=== PATIENT | male | born 1990 | race Two or more races ===

== ENCOUNTER → 2018-07-08 12:55 | Outpatient (CLI) | payer MEDICAID, SELFPAY ==
[2018-07-07 14:34] VITALS: BMI 30.5
[2018-07-08 14:10] LABS: AST(SGOT) 28 U/L (15-37); Alanine Aminotransfer ALT/SGPT 46 U/L (16-61); Albumin, Serum 4.2 g/dL (3.2-5.0); Alkaline Phosphatase 58 U/L (45-117); Bilirubin, Direct 0.11 mg/dL (0.00-0.30); Cholesterol 197 mg/dL (200); Globulin 3.8 g/dL (2.2-4.2); High Density Lipoprotein 33 mg/dL; Triglycerides 645 mg/dL
== END ==
PROVIDERS: Referring Provider Internal Medicine Cardiovascular Disease; Visit Provider Internal Medicine Cardiovascular Disease
DX: Z13.220 Encounter for screening for lipoid disorders (principal); Z82.49 Family history of ischemic heart disease and other diseases of the circulatory system
CPT/HCPCS: 36415; 80061; 80076

== ENCOUNTER → 2018-07-10 20:30 | Outpatient (CLI) | payer MEDICAID, SELFPAY ==
[2018-07-07 14:34] VITALS: BMI 30.5
[2018-07-10] MEDS: Zolpidem Tartrate 5 MG Tablet PO (21:40)
== END ==
PROVIDERS: Referring Provider Internal Medicine Cardiovascular Disease; Visit Provider Internal Medicine Cardiovascular Disease
DX: G47.33 Obstructive sleep apnea (adult) (pediatric) (principal); G47.61 Periodic limb movement disorder
CPT/HCPCS: 95810

== ENCOUNTER 2018-07-22 16:46 | Observation (INO) | payer MEDICAID, SELFPAY ==
[2018-07-07 14:34] VITALS: BMI 30.5
[2018-07-22] VITALS (9 sets, daily range): BP systolic 86–137; BP diastolic 43–99; PULSE 48–64; RESP 16–20; TEMP 36.5–36.9; O2SAT 98–99; BMI 30.8; BMI 29.6
--- NOTE | 2018-07-22 16:50 | NURSING ---
NO OLD EKGS
--- NOTE | 2018-07-22 17:03 | EKG12_ITS ---
Test Reason : CP Blood Pressure : / mmHG Vent. Rate : 062 BPM Atrial Rate : 062 BPM P-R Int : 130 ms QRS Dur : 096 ms QT Int : 374 ms P-R-T Axes : 044 021 009 degrees QTc Int : 379 ms Normal sinus rhythm Normal ECG Confirmed by RACHNA COVARRUBIAS, NITHYA ([id number]), art editor KARLA ISAAC ([id number]) on 07/24/2018 11:03:05 AM Referred By: Grupo Key Confirmed By:NITHYA BRISCOE MD
--- NOTE | 2018-07-22 17:03 | RAD_ITS ---
STUDY: X-RAY CHEST REASON FOR EXAM: Male, 28 years old. Chest pain TECHNIQUE: Single frontal view of the chest. COMPARISON: None. FINDINGS: The lungs are clear and expanded. There is no demonstrated pleural abnormality. Normal size heart. Normal mediastinum and kristyn. Normal visualized pulmonary arteries. Normal visualized aortic arch and descending thoracic aorta. Normal visualized thoracic spine. Normal visualized ribs, clavicles, and shoulders. There is no demonstrated abnormality of the visualized soft tissue structures of the upper abdomen. RAD/Chest 1 View (Portable) IMPRESSION: Normal x-ray examination of the chest. Electronically Signed: Geovany Lake MD at 22:09 EDT Tel , Service support ,
[2018-07-22] MEDS: 0.9% Normal Saline 1,000 ML 150 ML IV (17:11)
[2018-07-22] MEDS: Aspirin 81 MG TAB.CHEW 324 MG PO (17:12)
[2018-07-22 17:14] LABS: Absolute Lymphocyte Count 2.74 X10^3/ul (0.83-4.51); Absolute Neutrophil Count 2.7 X10^3/uL (2.0-7.7); Basophil# 0.03 X10^3/uL; Basophil% 0.5 % (0-1); Eosinophils% 3.3 % (0-5); Hematocrit 46.1 % (40-54); Hemoglobin 15.7 g/dl (13.0-16.5); Lymphocyte # 2.74 X10^3/ul (4.0); Lymphocyte % 45.2 % (19-41); Mean Corp Hgb Conc 34.1 g/gl (32-36); Mean Corpuscular Hgb 30.5 pg (27.0-32.0); Mean Corpuscular Volume 89.5 fL (80-94); Mean Platelet Vol. 10.2 fl (6.2-12.0); Monocyte# 0.43 X10^3/uL; Monocyte% 7.1 % (0-10); Neutrophil # 2.65 X10^3/uL (2.7-7.7); Neutrophil % 43.7 % (47-70); Platelet Count 251 K/mm3 (150-450); RBC Distribution Width CV 12.5 % (11.6-14.6); RBC Distribution Width SD 40.2 fl (35.1-43.9); Red Blood Count 5.15 M/mm3 (4.6-6.2); White Blood Count 6.1 K/mm3 (4.4-11.0)
[2018-07-22 17:26] LABS: Anion Gap 6 (5-15); BUN 12 mg/dL (7-18); BUN/Creat Ratio 11.7 RATIO (10-20); Calcium,Total 9.2 mg/dL (8.5-10.1); Chloride 105 mmol/L (98-107); Creatinine, Serum 1.03 mg/dL (0.70-1.30); EST Glomerular Filtration Rate 90 mL/min (>60); Est Glom Filt Rate - Afr Amer 109 mL/min (>60); Glucose 104 mg/dL (74-106); Potassium 3.9 mmol/L (3.5-5.1); Sodium Level 141 mmol/L (136-145)
[2018-07-22] MEDS: Nitroglycerin Oint 1 INCH PACKET TRANSDERM. (17:40)
[2018-07-22 17:52] LABS: D-Dimer Quantitative (DVT/PE) < 0.27 FEU/ug/m (0.27-0.49)
[2018-07-22 17:57] LABS: POSITIVE COUNT NO; POSITIVE DIFFERENTIAL NO; POSITIVE MORPHOLOGY NO
--- NOTE | 2018-07-22 18:07 | ED.VISSUMM ---
- ER Visit Summary Date of Service: 07/22/18 Chief Complaint: [Chest pain] History of Present Illness: The patient is a 28 M [presents the emergency department chief complaint chest pain intermittently for the last month. She was seen by Dr. Abbe Hall several weeks ago who ordered a stress test and echocardiogram but apparently was denied by his insurance. Patient stopped running on a treadmill because every time he did he would develop chest discomfort and pain radiating to his left arm. He describes it as pressure. At times he has had diaphoresis and shortness of breath associated with it. Patient has significant family history of heart disease and that his father's had a CABG in his early 50s and his mother has heart disease. Patient states lots of his family members in their 40s from heart disease. Patient also has triglycerides of over 600. Patient states his last stress test and echo were over 2 years ago. Patient is never had a heart catheterization.] Physical Examination: [HEENT-PERRLA, EOMI. Cranial nerves II through XII grossly intact. TMs clear. Mucous membranes moist. No adenopathy. Cardiovascular-regular rate and rhythm without murmur or ectopy Lungs-clear to auscultation, chest wall stable without crepitus or subcu emphysema Abdomen-normoactive bowel sounds, soft, nontender, no rebound or rigidity, no peritoneal signs. Extremities-intact ?4, normal range of motion, normal pulses, atraumatic] Test Results: [EKG obtained on arrival showed a sinus rhythm with a ventricular rate of 62 bpm with no acute I segment changes. CBC with differential was normal. Chemistries were normal. D-dimer was less than 0.27. Troponin is less than 0.015.] Emergency Department Course and Treatment: [Patient received aspirin as well as nitroglycerin which did help his pain and he had an inch of Nitropaste placed to the anterior chest wall.] Treatment Plan: [Patient will be admitted for further workup and evaluation of his exertional chest pain.] Disposition: [Admit] Impression: [Chest pain-rule out acute coronary syndrome] This note was generated with [employer] dictation software. It may contain incorrect words, spelling, and punctuation that were not noted in review of the chart prior to signing ED Disposition - Plan for ED Patient: Referrals: Care Physician,No Primary [Primary Care Provider] -
--- NOTE | 2018-07-22 18:19 | NURSING ---
JAMEY CP OBS [id number]
--- NOTE | 2018-07-22 18:49 | PCM.HP.STD ---
Problem List (1) Chest pain Status: Acute Qualifiers: Ischemic chest pain type: stable angina pectoris History of Present Illness Date of Admission: 07/22/18 Chief Complaint: chest pain The patient is a 28 year old M presents with chest pain. Chest pain has been going on and off for the past week. States is worse with exertion but also associated with diaphoresis, nausea and pain down his left arm. States that the symptoms get better when he stops. Chest pain-free at this time. Patient was evaluated in the emergency room with a troponin and d-dimer which were negative. EKG showed no acute changes. Patient notes that he has a family history of early coronary disease. Patient was normally active using a treadmill but over the past week has been unable to do so given the symptoms. [] Past Medical History Past Medical History (Chronic Problems): Chronic Problems (Last Updated 07/07/18 @ 15:04 by Gill Taylor) Family history of ischemic heart disease (Chronic) Bradycardia (Chronic) Medical History: Medical History (Last Updated 07/22/18 @ 18:51 by Grupo Key DO) Excessive daytime sleepiness (Acute) G47.19 Shortened FL interval (Acute) R94.31 Abnormal EKG (Acute) R94.31 Chest pain (Acute) R07.9 Family history of ischemic heart disease (Chronic) Z82.49 Bradycardia (Chronic) R00.1 TATIANA (obstructive sleep apnea) G47.33 Allergies No Known Allergies Allergy (Unverified 07/22/18 16:54) Home Medications: Ambulatory Orders Medication Instructions Recorded Gemfibrozil 600 mg PO BID 07/22/18 Smoking Status: Former smoker Tobacco Use: Cigarettes - *Family History Paternal Family History: Family History (Last Reviewed 07/22/18 @ 18:51 by Grupo Key DO) Father CAD (coronary artery disease) S/P CABG (coronary artery bypass graft) Hyperlipidemia Grandfather CAD (coronary artery disease) Sudden cardiac Grandmother CAD (coronary artery disease) Uncle CAD (coronary artery disease) Sudden cardiac Grandfather CAD (coronary artery disease) Myocardial infarction Grandmother No problems noted. Son No problems noted. Mother CAD (coronary artery disease) Myocardial infarction H/O right coronary artery stent placement, Onset Age: 53 Review of Systems Constitutional: Denies: Anorexia, Chills, Fever, Night Sweats Eyes: Denies: Blurred vision, Double vision HEENT: Denies: Head Aches, Sinus Congestion, Sinus Drainage Cardiovascular: Reports: Chest Pain, Palpitations. Denies: Edema Respiratory: Denies: Cough, Shortness of breath at rest, Sputum production Gastrointestinal: Reports: Nausea. Denies: Abdominal Pain, Vomiting Genitourinary: Denies: Dysuria Musculoskeletal: Reports: Arm Pain Skin: Denies: Rash, Wounds Neurological: Denies: Numbness, Tingling, Focal weakness Psychiatric: Denies: Anxiety, Depression Endocrine: Denies: Change in Body Habitus, Heat/ Cold Intolerance Hematologic/ Lymphatic: Denies: Easy Bruising, Easy Bleeding, Hx of blood clot Comment: A 10 point review of systems were negative except as mentioned in the history of present illness and the other review of systems. VTE Information - Inpt Only VTE Present on Admission: No VTE Mechan Device Prophylaxis: None VTE Pharm Prophylaxis ordered?: No Reason prophylaxis not ordered:: Procedure Not Indicated - Physical Exam General: Alert, Cooperative, No apparent distress HEENT: Atraumatic, Normocephalic Oral: Moist Mucosa, No Gingival or Mucosal Lesions/ Ulcerations Neck: No Nodes, Thyroid Normal Size and Texture Lungs: Normal air movement, No rhonchi, No wheeze, - - Crackles in left lower lobe Cardiovascular: Regular rate, Regular Rhythm, Normal S1, Normal S2, No murmurs Abdomen: Bowel Sounds Present, Soft, Non Tender, Non-Distended, No Hepato-splenomegaly Extremities: No edema, No Calf Tenderness Skin: No rashes, No breakdown Musculoskeletal: No Tenderness to Palpation of Joints or Extremities, No Muscle Wasting Psych/Mental Status: Normal Affect, Appropriate Vital Signs Temp Pulse Resp BP Pulse Ox 36.7 C 63 17 137/89 H 99 07/22/18 16:49 07/22/18 18:26 07/22/18 18:26 07/22/18 18:26 07/22/18 18:26 Oxygen Flow Rate (L/min) 2 Oxygen Delivery Method Nasal Cannula Weight: 103 kg Body Mass Index (BMI) 30.8 Laboratory Tests Past 24 Hrs 07/22/18 07/22/18 07/22/18 16:50 16:50 16:50 WBC 6.1 RBC 5.15 Hgb 15.7 Hct 46.1 MCV 89.5 MCH 30.5 MCHC 34.1 RDW 12.5 RDW Differential 40.2 Plt Count 251 MPV 10.2 Immature Gran % (Auto) 0.200 Neut % (Auto) 43.7 L Lymph % (Auto) 45.2 H [place] % (Auto) 7.1 Eos % (Auto) 3.3 Baso % (Auto) 0.5 Absolute Neuts (auto) 2.7 Absolute Lymphs (auto) 2.74 Total Counted Not Reportable D-Dimer Quant (PE/DVT) < 0.27 L Sodium 141 Potassium 3.9 Chloride 105 Carbon Dioxide 30.0 Anion Gap 6 BUN 12 Creatinine 1.03 Estim Creat Clear Calc 115.10 Est GFR (MDRD) Af Amer 109 Est GFR (MDRD) Non-Af 90 BUN/Creatinine Ratio 11.7 Glucose 104 Calcium 9.2 Troponin I < 0.015 EKG reviewed and showed normal sinus rhythm with no acute changes. Assessment/Plan All Active Problems (Last Updated 07/07/18 @ 15:04 by Gill Taylor) Excessive daytime sleepiness (Acute) Shortened FL interval (Acute) Abnormal EKG (Acute) Chest pain (Acute) 1. Stable angina Stable at this time Cardiology contacted emergency room and stated that they will evaluate and determine course of action in regards to additional testing whether be a stress test or a left heart catheterization. In the meantime, patient will have a troponin cycled and if they do go up then we will likely proceed with a left heart catheterization and changes to medical treatment at that time. Patient received aspirin as well as nitroglycerin in the emergency room. We will continue with daily aspirin for now and as needed nitroglycerin. Reviewed stress test from 2016. This was performed in [place] and that was negative at that time. 2. Hypertriglyceridemia Patient had a fasting lipid panel performed on July 08 that showed a triglycerides of 645 total cholesterol 197. Unable to calculate LDL. HDL was 33. Continue with gemfibrozil 3. Obstructive sleep apnea Patient had a polysomnogram on the that showed moderate to severe sleep apnea. Patient requires further CPAP titration 4. DVT prophylaxis: Patient is observation status and therefore low risk at this time. DVT prophylaxis not indicated. Patient's father and sister were present when I arrived. He requested that they leave during my encounter with him. Code Visit OBSV E&M: 34081 Initial observation care L2
--- NOTE | 2018-07-22 18:56 | HP.PCM_ITS ---
Problem List (1) Chest pain Status: Acute Qualifiers: Ischemic chest pain type: stable angina pectoris History of Present Illness Date of Admission: 07/22/18 Chief Complaint: chest pain The patient is a 28 year old M presents with chest pain. Chest pain has been going on and off for the past week. States is worse with exertion but also associated with diaphoresis, nausea and pain down his left arm. States that the symptoms get better when he stops. Chest pain-free at this time. Patient was evaluated in the emergency room with a troponin and d-dimer which were negative. EKG showed no acute changes. Patient notes that he has a family history of early coronary disease. Patient was normally active using a treadmill but over the past week has been unable to do so given the symptoms. [] Past Medical History Past Medical History (Chronic Problems): Chronic Problems (Last Updated 07/07/18 @ 15:04 by Gill Taylor) Family history of ischemic heart disease (Chronic) Bradycardia (Chronic) Medical History: Medical History (Last Updated 07/22/18 @ 18:51 by Grupo Key DO) Excessive daytime sleepiness (Acute) G47.19 Shortened [place] interval (Acute) R94.31 Abnormal EKG (Acute) R94.31 Chest pain (Acute) R07.9 Family history of ischemic heart disease (Chronic) Z82.49 Bradycardia (Chronic) R00.1 TATIANA (obstructive sleep apnea) G47.33 Allergies No Known Allergies Allergy (Unverified 07/22/18 16:54) Home Medications: Ambulatory Orders Medication Instructions Recorded Gemfibrozil 600 mg PO BID 07/22/18 Smoking Status: Former smoker Tobacco Use: Cigarettes - *Family History Paternal Family History: Family History (Last Reviewed 07/22/18 @ 18:51 by Grupo Key DO) Father CAD (coronary artery disease) S/P CABG (coronary artery bypass graft) Hyperlipidemia Grandfather CAD (coronary artery disease) Sudden cardiac Grandmother CAD (coronary artery disease) Uncle CAD (coronary artery disease) Sudden cardiac Grandfather CAD (coronary artery disease) Myocardial infarction Grandmother No problems noted. Son No problems noted. Mother CAD (coronary artery disease) Myocardial infarction H/O right coronary artery stent placement, Onset Age: 53 Review of Systems Constitutional: Denies: Anorexia, Chills, Fever, Night Sweats Eyes: Denies: Blurred vision, Double vision HEENT: Denies: Head Aches, Sinus Congestion, Sinus Drainage Cardiovascular: Reports: Chest Pain, Palpitations. Denies: Edema Respiratory: Denies: Cough, Shortness of breath at rest, Sputum production Gastrointestinal: Reports: Nausea. Denies: Abdominal Pain, Vomiting Genitourinary: Denies: Dysuria Musculoskeletal: Reports: Arm Pain Skin: Denies: Rash, Wounds Neurological: Denies: Numbness, Tingling, Focal weakness Psychiatric: Denies: Anxiety, Depression Endocrine: Denies: Change in Body Habitus, Heat/ Cold Intolerance Hematologic/ Lymphatic: Denies: Easy Bruising, Easy Bleeding, Hx of blood clot Comment: A 10 point review of systems were negative except as mentioned in the history of present illness and the other review of systems. VTE Information - Inpt Only VTE Present on Admission: No VTE Mechan Device Prophylaxis: None VTE Pharm Prophylaxis ordered?: No Reason prophylaxis not ordered:: Procedure Not Indicated - Physical Exam General: Alert, Cooperative, No apparent distress HEENT: Atraumatic, Normocephalic Oral: Moist Mucosa, No Gingival or Mucosal Lesions/ Ulcerations Neck: No Nodes, Thyroid Normal Size and Texture Lungs: Normal air movement, No rhonchi, No wheeze, - - Crackles in left lower lobe Cardiovascular: Regular rate, Regular Rhythm, Normal S1, Normal S2, No murmurs Abdomen: Bowel Sounds Present, Soft, Non Tender, Non-Distended, No Hepato- splenomegaly Extremities: No edema, No Calf Tenderness Skin: No rashes, No breakdown Musculoskeletal: No Tenderness to Palpation of Joints or Extremities, No Muscle Wasting Psych/Mental Status: Normal Affect, Appropriate Vital Signs Temp Pulse Resp BP Pulse Ox 36.7 C 63 17 137/89 H 99 07/22/18 16:49 07/22/18 18:26 07/22/18 18:26 07/22/18 18:26 07/22/18 18:26 Oxygen Flow Rate (L/min) 2 Oxygen Delivery Method Nasal Cannula Weight: 103 kg Body Mass Index (BMI) 30.8 Laboratory Tests Past 24 Hrs 07/22/18 07/22/18 07/22/18 16:50 16:50 16:50 WBC 6.1 RBC 5.15 Hgb 15.7 Hct 46.1 MCV 89.5 MCH 30.5 MCHC 34.1 RDW 12.5 RDW Differential 40.2 Plt Count 251 MPV 10.2 Immature Gran % (Auto) 0.200 Neut % (Auto) 43.7 L Lymph % (Auto) 45.2 H [place] % (Auto) 7.1 Eos % (Auto) 3.3 Baso % (Auto) 0.5 Absolute Neuts (auto) 2.7 Absolute Lymphs (auto) 2.74 Total Counted Not Reportable D-Dimer Quant (PE/DVT) < 0.27 L Sodium 141 Potassium 3.9 Chloride 105 Carbon Dioxide 30.0 Anion Gap 6 BUN 12 Creatinine 1.03 Estim Creat Clear Calc 115.10 Est GFR (MDRD) Af Amer 109 Est GFR (MDRD) Non-Af 90 BUN/Creatinine Ratio 11.7 Glucose 104 Calcium 9.2 Troponin I < 0.015 EKG reviewed and showed normal sinus rhythm with no acute changes. Assessment/Plan All Active Problems (Last Updated 07/07/18 @ 15:04 by Gill Taylor) Excessive daytime sleepiness (Acute) Shortened [place] interval (Acute) Abnormal EKG (Acute) Chest pain (Acute) 1. Stable angina * Stable at this time * Cardiology contacted emergency room and stated that they will evaluate and determine course of action in regards to additional testing whether be a stress test or a left heart catheterization. * In the meantime, patient will have a troponin cycled and if they do go up then we will likely proceed with a left heart catheterization and changes to medical treatment at that time. * Patient received aspirin as well as nitroglycerin in the emergency room. We will continue with daily aspirin for now and as needed nitroglycerin. * Reviewed stress test from 2017. This was performed in [place] and that was negative at that time. 2. Hypertriglyceridemia * Patient had a fasting lipid panel performed on July 08 that showed a triglycerides of 645 total cholesterol 197. Unable to calculate LDL. HDL was 33. * Continue with gemfibrozil 3. Obstructive sleep apnea * Patient had a polysomnogram on the that showed moderate to severe sleep apnea. Patient requires further CPAP titration 4. DVT prophylaxis: Patient is observation status and therefore low risk at this time. DVT prophylaxis not indicated. Patient's father and sister were present when I arrived. He requested that they leave during my encounter with him. Code Visit OBSV E&M: [id number] Initial observation care L2
--- NOTE | 2018-07-22 19:52 | EKG12_ITS ---
Test Reason : CP ADMIT Blood Pressure : / mmHG Vent. Rate : 056 BPM Atrial Rate : 056 BPM P-R Int : 138 ms QRS Dur : 096 ms QT Int : 410 ms P-R-T Axes : 027 014 006 degrees QTc Int : 395 ms Sinus bradycardia Otherwise normal ECG When compared with ECG of 22-JUL-2018 16:51, MANUAL COMPARISON REQUIRED, DATA IS UNCONFIRMED Confirmed by RACHNA COVARRUBIAS, NITHYA ([id number]), index editor KARLA ISAAC ([id number]) on 07/27/2018 1:17:35 PM Referred By: Grupo Key Confirmed By:NITHYA BRISCOE MD
[2018-07-22] MEDS: Gemfibrozil 600 MG Tablet PO (22:16)
[2018-07-23] VITALS (10 sets, daily range): BP systolic 103–120; BP diastolic 61–75; PULSE 43–94; RESP 16; TEMP 36.4–36.9; O2SAT 95–99
--- NOTE | 2018-07-23 07:57 | STEWCON_ITS ---
Reason For Study: Chest Pain Stress Results Protocol: Vasiliy Protocol Maximum Predicted HR: 190 bpm Target HR: 162 bpm % Maximum Predicted HR: 74 % Heart Stage Duration Rate BP Comment (mm:ss) (bpm) No Chest Pain; Positive Left Arm Pain; Diluted Definity Baseline 52 102/725 ML Given Vasiliy Protocol Stage I 3:00 90 110/64No Chest Pain; No Left Arm Pain Vasiliy Protocol Stage II 3:00 102 124/60No Chest Pain; Mild Dyspnea Vasiliy Protocol Stage Left Side Chest Pressure, Mild Dyspnea; Mild Left Arm III 3:00 122 148/58Pain Vasiliy Protocol Stage Moderate Left Side Chest Pressure-Sharp; Left Arm Pain; IV 1:00 141 / Mild Dyspnea Recovery 80 114/68Mild Chest Pressure; Nausea; Left Arm Pain Stress Duration: 10:00 mm:ss Maximum Stress HR: 141 bpm METS: 13 Baseline Echocardiogram Findings The estimated ejection fraction is 65 %. Stress Echo Wall motion Data Resting WM Intermediate WM Stress WM Resting Wall Motion Wall Motion Stress No regional wall motion No regional wall motion abnormalities noted. abnormalities noted. EKG Data Normal intervals are noted. The patient exercised according to the regular Vasiliy protocol for a total duration of 10:00. The maximum heart rate attained was 141 beats per minute. This was 74% of maximum predicted heart rate. The patient exercised into stage 4 of the Vasiliy protocol. During stress, there were no ST or T wave changes noted to suggest ischemia. No arrhythmias noted. Interpretation Summary The estimated ejection fraction is 65 %. Abnormal, adequate, treadmill echocardiogram. Negative for ischemia by EKG and echocardiographic anterior. Patient did develop chest discomfort during exercise which radiated down his left arm, and resolved in recovery. No associated EKG or echocardiographic changes during that time. No arrhythmias noted. Final LVEF is 75%. Test terminated due to chest pain. Difficult echo windows requiring Definity agent for enhancement. No complications. The study was technically difficult. Contrast injection was performed. Ordering Physician: Abbe Hall Referring Physician: Abbe Hall Performed By: Annabella Nolan, BRYAN, RVT
--- NOTE | 2018-07-23 07:58 | ECHOCS_ITS ---
Reason For Study: CP Procedure This was a 2D Doppler, Color Flow transthoracic echocardiogram. Exam performed in department. Left Ventricle Normal size and thickness. The estimated ejection fraction is 65 %. Normal diastology for age. No regional wall motion abnormalities noted. Right Ventricle Normal size and thickness. Normal systolic function. Atria Normal left atrium. Normal right atrium. Normal atrial septum. Mitral Valve The mitral valve is structurally normal. No prolapse or stenosis seen. Tricuspid Valve Normal tricuspid valve. Trivial tricuspid valve insufficiency. Unable to estimate RV systolic pressure/pulmonary artery pressure due to technically difficult study. Aortic Valve Normal aortic valve. Trisinus/trileaflet aortic valve. Pulmonic Valve Normal pulmonic valve. Great Vessels Normal aortic root. Normal arch. Normal inferior vena cava. Inferior vena cava collapse with sniff. Pericardium/Pleural No pericardial effusion. Medication Diluted definity 2ml given slow IV push to enhance endocardial definition. MMode/2D Measurements & Calculations LVIDd: 4.6 cm IVSd: 1.2 cm Ao root diam: 3.1 cm LVIDs: 3.2 cm LVPWd: 1.0 cm LA dimension: 3.2 cm FS: 30.6 % LAV(MOD-bp): 33.6 ml LVAd ap4: 34.9 cm2 SV(MOD-sp4): 65.5 ml LAV(MOD-bp) Indexed: 15.2 ml/m2 EDV(MOD-sp4): 120.4 ml LAV(MOD-sp2): 36.3 ml EDV(sp4-el): 125.1 ml LAV(MOD-sp4): 29.1 ml LVAs ap4: 21.0 cm2 ESV(MOD-sp4): 54.8 ml ESV(sp4-el): 57.6 ml EF(MOD-sp4): 54.4 % EF(sp4-el): 54.0 % SV(sp4-el): 67.5 ml LA A4 area: 12.6 cm2 RA A4 area: 12.3 cm2 Time Measurements MV dec time: 0.29 sec Doppler Measurements & Calculations MV E max pramod: 65.4 cm/sec Lat Peak E' Pramod: 11.8 cm/sec Med Peak E' Pramod: 8.3 cm/sec MV A max pramod: 56.3 cm/sec E/E' lat: 5.5 E/E' med: 7.9 MV E/A: 1.2 MV V2 max: 61.5 cm/sec MV P1/2t max pramod: 61.1 cm/sec Ao V2 max: 101.4 cm/sec MV max P.5 mmHg MV P1/2t: 100.3 msec Ao max P.1 mmHg MV V2 mean: 40.3 cm/sec Ao V2 mean: 65.0 cm/sec MV mean P.73 mmHg MV dec slope: 178.6 cm/sec2 Ao mean P.9 mmHg MV V2 VTI: 17.5 cm MVA(P1/2t): 2.2 cm2 Ao V2 VTI: 18.3 cm LV V1 max: 80.2 cm/sec PA V2 max: 85.7 cm/sec LV V1 max P.6 mmHg LV V1 mean P.1 mmHg LV V1 mean: 46.7 cm/sec LV V1 VTI: 15.9 cm Interpretation Summary The estimated ejection fraction is 65 %. Normal diastology for age. Trivial tricuspid valve insufficiency. Unable to estimate RV systolic pressure/pulmonary artery pressure due to technically difficult study. There is no comparison study available. The study was technically difficult. Contrast injection was performed. Ordering Physician: Abbe Hall Referring Physician: Grupo Key Performed By: Giancarlo Turpin RCS
--- NOTE | 2018-07-23 08:02 | PCM.PN.HOSP ---
Vitals/I&O's: Vital Signs Temp Pulse Resp BP Pulse Ox 98.0 F 56 L 16 103/61 99 07/23/18 04:18 07/23/18 07:20 07/23/18 04:18 07/23/18 04:18 07/23/18 04:18 Oxygen Flow Rate (L/min) 2 Oxygen Delivery Method Room Air Weight: 99.1 kg Body Mass Index (BMI) 29.6 Intake and Output for Last 24 Hours 07/21/18 07/22/18 07/23/18 23:59 23:59 23:59 Intake Total 150 / 150 0 / 0 Balance 150 / 150 0 / 0 Laboratory Results 07/22/18 16:50: WBC 6.1, RBC 5.15, Hgb 15.7, Hct 46.1, MCV 89.5, MCH 30.5, MCHC 34.1, RDW 12.5, RDW Differential 40.2, Plt Count 251, MPV 10.2, Immature Gran % (Auto) 0.200, Neut % (Auto) 43.7 L, Lymph % (Auto) 45.2 H, [place] % (Auto) 7.1, Eos % (Auto) 3.3, Baso % (Auto) 0.5, Absolute Neuts (auto) 2.7, Absolute Lymphs (auto) 2.74, Total Counted Not Reportable 07/22/18 16:50: D-Dimer Quant (PE/DVT) < 0.27 L 07/22/18 16:50: Sodium 141, Potassium 3.9, Chloride 105, Carbon Dioxide 30.0, Anion Gap 6, BUN 12, Creatinine 1.03, Estim Creat Clear Calc 115.10, Est GFR (MDRD) Af Amer 109, Est GFR (MDRD) Non-Af 90, BUN/Creatinine Ratio 11.7, Glucose 104, Calcium 9.2, Troponin I < 0.015 07/22/18 19:52: Troponin I < 0.015 07/23/18 00:16: Troponin I < 0.015 Current Medications Acetaminophen (Tylenol) 650 mg PO Q6H PRN PRN PRN Reason: Mild Pain (1-3)/Temp > 100.7 F Aspirin (Ecotrin) 81 mg PO DAILY@0800 [facility] Gemfibrozil (Lopid) 600 mg PO BIDAC [facility] Last Admin: 07/22/18 22:16 Dose: 600 mg Magnesium Hydroxide (Milk Of Magnesia) 30 ml PO DAILY PRN PRN Reason: Constipation Morphine Sulfate () 2 - 4 mg IV Q4H PRN PRN PRN Reason: MOD-SEVERE PAIN (4-10/10) Morphine Sulfate () 2 - 4 mg IV Q4H PRN PRN PRN Reason: MOD-SEVERE PAIN (4-10/10) Nitroglycerin (Nitrostat) 0.4 mg SUBLINGUAL Q5M PRN PRN Reason: CHEST PAIN Ondansetron HCl (Zofran) 4 mg IV Q8H PRN PRN PRN Reason: NAUSEA Sodium Chloride () 5 - 15 ml IV UD PRN PRN Reason: SALINE FLUSH Medical Necessity - Tobacco Use Smoking Status: Former smoker Tobacco Use: Cigarettes Assessment/Plan All Active Problems (Last Updated 07/22/18 @ 18:51 by Grupo Key DO) Excessive daytime sleepiness (Acute) Shortened [place] interval (Acute) Abnormal EKG (Acute) Chest pain (Acute)
[2018-07-23] MEDS: Gemfibrozil 600 MG Tablet PO ×2 (08:05→16:17)
[2018-07-23] MEDS: Aspirin E.C. 81 MG Tablet PO (08:05)
[2018-07-23 08:56] LABS: Erythrocyte Sedimentation Rate 3 mm/hr (0-15)
[2018-07-23 09:21] LABS: CRP, High Sensitivity Cardiac 0.51 mg/L
--- NOTE | 2018-07-23 12:21 | PCM.CONS.C ---
Problem List (1) Abnormal EKG Status: Acute (2) Chest pain Status: Acute Qualifiers: Ischemic chest pain type: stable angina pectoris (3) Family history of ischemic heart disease Status: Chronic Reason for Consult Date of Consultation: 07/23/18 Reason for Consultation: New onset angina, abnormal EKG, family history of coronary artery disease, History of Present Illness: The patient is a 28 year old M, former smoker who quit over 10 years ago, strong positive family history of premature coronary artery disease in both his mother and father, who I recently saw in the office as a new patient given the patient's concern for premature coronary artery disease in his parents. His father, who is actually my patient, had bypass surgery in his early 50s, and his mother had a myocardial infarction in her 50s. Patient has a history of hypertriglyceridemia, but was not on any medications. Over the last week or so the patient developed new onset chest pain, mostly at rest, nonpleuritic in nature, but also occurs with exertion. 2 days ago, the patient presented to our office with new onset angina, we were unable to see him and recommended he go to the emergency room but he declined. Yesterday afternoon the patient's chest pain worsened and had associated pain down his left arm, called our office, and recommended that he go to the emergency room. Patient did go to the emergency room where an EKG was performed which showed normal sinus rhythm, no acute changes, no difference from EKG several days ago. Patient was admitted and ruled out for myocardial infarction. His d-dimer is negative. His sed rate is negative. Patient underwent a walking treadmill echocardiogram this morning which the patient walked about 10 minutes, developed substernal chest pressure during the treadmill which radiated down his left arm, and resolved in recovery. The patient had no associated EKG or echocardiographic changes however he had poor echo windows requiring Definity agent making wall motion and normalities somewhat difficult to interpret. Currently the patient is resting comfortably, no acute distress. [] Past Medical History Allergies/Adverse Reactions: Allergies No Known Allergies Allergy (Unverified 07/22/18 16:54) Home Medications: Ambulatory Orders Medication Instructions Recorded Gemfibrozil 600 mg PO BID 07/22/18 Past Medical History (Chronic Problems): Chronic Problems (Last Updated 07/22/18 @ 18:51 by Grupo Key DO) Family history of ischemic heart disease (Chronic) Bradycardia (Chronic) - *Family History Paternal Family History: Family History (Last Reviewed 07/22/18 @ 18:51 by Grupo Key DO) Father CAD (coronary artery disease) S/P CABG (coronary artery bypass graft) Hyperlipidemia Grandfather CAD (coronary artery disease) Sudden cardiac Grandmother CAD (coronary artery disease) Uncle CAD (coronary artery disease) Sudden cardiac Grandfather CAD (coronary artery disease) Myocardial infarction Grandmother No problems noted. Son No problems noted. Mother CAD (coronary artery disease) Myocardial infarction H/O right coronary artery stent placement, Onset Age: 53 Smoking Status: Former smoker Tobacco Use: Cigarettes Review of Systems - Review of Systems General: Denies: Fever, Night Sweats, Fatigue Cardiovascular: Denies: Chest Discomfort, Shortness of Breath, Orthopnea, PND, Peripheral Edema, Palpitations, Lightheadedness, Dizziness, Near Syncope, Syncope Respiratory: Denies: Cough, Sputum Production, Hemoptysis Gastrointestinal: Denies: Hematemesis, Hematochezia, Melena Genitourinary: Denies: Dysuria, Hematuria Skin: Denies: Rash Objective: Vital Signs Temp Pulse Resp BP Pulse Ox 98.5 F 63 16 120/73 98 07/23/18 08:07 07/23/18 10:53 07/23/18 08:07 07/23/18 08:07 07/23/18 08:07 Oxygen Flow Rate (L/min) 2 Oxygen Delivery Method Room Air Weight: 218 lb 7.649 oz Body Mass Index (BMI) 29.6 Intake and Output for Last 24 Hours 07/21/18 07/22/18 07/23/18 23:59 23:59 23:59 Intake Total 150 / 150 100 / 100 Balance 150 / 150 100 / 100 07/22/18 16:50: WBC 6.1, RBC 5.15, Hgb 15.7, Hct 46.1, MCV 89.5, MCH 30.5, MCHC 34.1, RDW 12.5, RDW Differential 40.2, Plt Count 251, MPV 10.2, Immature Gran % (Auto) 0.200, Neut % (Auto) 43.7 L, Lymph % (Auto) 45.2 H, [place] % (Auto) 7.1, Eos % (Auto) 3.3, Baso % (Auto) 0.5, Absolute Neuts (auto) 2.7, Total Counted Not Reportable 07/22/18 16:50: D-Dimer Quant (PE/DVT) < 0.27 L 07/22/18 16:50: Sodium 141, Potassium 3.9, Chloride 105, Carbon Dioxide 30.0, Anion Gap 6, BUN 12, Creatinine 1.03, Est GFR (MDRD) Af Amer 109, Est GFR (MDRD) Non-Af 90, BUN/Creatinine Ratio 11.7, Glucose 104, Calcium 9.2, Troponin I < 0.015 07/22/18 19:52: Troponin I < 0.015 07/23/18 00:16: Troponin I < 0.015 Rhythm: EKG: Normal sinus rhythm, no acute changes. ECHO: Pending Stress Test: Abnormal treadmill echocardiogram, positive for anginal symptoms at peak exertion, no EKG or echocardiographic changes. Cardiac Cath: PCI: CT Surgery: Holter monitor: EPS: PPM: CXR: Chest CT Scan: Assessment/Plan 1. New onset angina: The patient has developed new onset chest pain symptoms over the last several days, which appeared to occur both with and without exertion and were re-documented with stress testing today at peak exertion. The patient developed substernal chest pressure radiating down his left arm with associated nausea. Although the patient did not reach target heart rate, he had an excellent rate pressure product. He had no overt EKG or echocardiographic changes at peak exercise however he had poor echo windows requiring Definity agent making echo interpretation somewhat problematic. Given the patient's chest pain, positive family history of premature coronary disease in both his parents, and chest pain during exercise, I recommended he undergo a diagnostic left heart catheterization tomorrow morning to confirm/deny the presence of significant coronary occlusive disease. Patient be loaded with 300 mg of Plavix this evening, followed by 75 mg a day starting tomorrow morning, and continue baby aspirin therapy. If patient is no overt coronary disease, we will look for other noncardiac reasons for his chest pain. His sed rate is negative so he most likely does not have pericarditis or pleuritis. His d-dimer was negative as well. Pulmonary embolism is of low probability. 2. Hypercholesterolemia: Patient has documented hypercholesterolemia and was recently started on gemfibrozil 600 mg p.o. twice daily. Would recommend continuing this for primary prophylaxis given his positive family history of premature coronary disease. We will repeat his lipid profile in 6 weeks time. 3. Thank you very much for the opportunity to participate in the cardiac care of your patient. Consultation time took place between 11 AM and 1130. Code Visit Inpatient E&M: 42448 Init Hosp L2
[2018-07-23] MEDS: Clopidogrel Bisulfate 300 MG Tablet PO (12:35)
--- NOTE | 2018-07-23 13:02 | PCM.PROGNOTE ---
<Jose Du - Last Filed: 07/23/18 13:02> Subjective: Pt going for heart cath in AM, at time of interview, no reported CP. He did have a recurrence of the CP with radiation to the left arm during his stress test. He states it is gone now. He otherwise feels well. - Physical Exam General: Alert, Oriented x3, Cooperative HEENT: Atraumatic, PERRLA, EOMI, Normocephalic Neck: Supple, No JVD, Negative Carotid Bruits Lungs: Clear to auscultation, Normal air movement Cardiovascular: Regular rate, No murmurs Abdomen: Bowel Sounds Present, Soft, Non Tender Extremities: No edema, Capillary Refill Less than 3 Seconds Skin: No rashes, No breakdown Musculoskeletal: No Tenderness to Palpation of Joints or Extremities Neurological: Cranial nerves II-XII grossly intact Psych/Mental Status: Normal Affect, Appropriate, Alert and oriented to time, place, person, mood and affect Vital Signs Temp Pulse Resp BP Pulse Ox 98.5 F 63 16 120/73 98 07/23/18 08:07 07/23/18 10:53 07/23/18 08:07 07/23/18 08:07 07/23/18 08:07 Oxygen Flow Rate (L/min) 2 Oxygen Delivery Method Room Air Weight: 218 lb 7.649 oz Body Mass Index (BMI) 29.6 Intake and Output for Last 24 Hours 07/21/18 07/22/18 07/23/18 23:59 23:59 23:59 Intake Total 150 / 150 100 / 100 Balance 150 / 150 100 / 100 Laboratory Tests Past 24 Hrs 07/22/18 07/22/18 07/22/18 16:50 16:50 16:50 WBC 6.1 RBC 5.15 Hgb 15.7 Hct 46.1 MCV 89.5 MCH 30.5 MCHC 34.1 RDW 12.5 RDW Differential 40.2 Plt Count 251 MPV 10.2 Immature Gran % (Auto) 0.200 Neut % (Auto) 43.7 L Lymph % (Auto) 45.2 H [place] % (Auto) 7.1 Eos % (Auto) 3.3 Baso % (Auto) 0.5 Absolute Neuts (auto) 2.7 Absolute Lymphs (auto) 2.74 Total Counted Not Reportable ESR D-Dimer Quant (PE/DVT) < 0.27 L Sodium 141 Potassium 3.9 Chloride 105 Carbon Dioxide 30.0 Anion Gap 6 BUN 12 Creatinine 1.03 Estim Creat Clear Calc 115.10 Est GFR (MDRD) Af Amer 109 Est GFR (MDRD) Non-Af 90 BUN/Creatinine Ratio 11.7 Glucose 104 Calcium 9.2 Troponin I < 0.015 C-React Prot High Sens 07/22/18 07/23/18 07/23/18 19:52 00:16 08:36 WBC RBC Hgb Hct MCV MCH MCHC RDW RDW Differential Plt Count MPV Immature Gran % (Auto) Neut % (Auto) Lymph % (Auto) [place] % (Auto) Eos % (Auto) Baso % (Auto) Absolute Neuts (auto) Absolute Lymphs (auto) Total Counted ESR 3 D-Dimer Quant (PE/DVT) Sodium Potassium Chloride Carbon Dioxide Anion Gap BUN Creatinine Estim Creat Clear Calc Est GFR (MDRD) Af Amer Est GFR (MDRD) Non-Af BUN/Creatinine Ratio Glucose Calcium Troponin I < 0.015 < 0.015 C-React Prot High Sens 07/23/18 08:36 WBC RBC Hgb Hct MCV MCH MCHC RDW RDW Differential Plt Count MPV Immature Gran % (Auto) Neut % (Auto) Lymph % (Auto) [place] % (Auto) Eos % (Auto) Baso % (Auto) Absolute Neuts (auto) Absolute Lymphs (auto) Total Counted ESR D-Dimer Quant (PE/DVT) Sodium Potassium Chloride Carbon Dioxide Anion Gap BUN Creatinine Estim Creat Clear Calc Est GFR (MDRD) Af Amer Est GFR (MDRD) Non-Af BUN/Creatinine Ratio Glucose Calcium Troponin I C-React Prot High Sens 0.51 Medical Necessity - Tobacco Use Smoking Status: Former smoker Tobacco Use: Cigarettes Assessment/Plan All Active Problems (Last Updated 07/22/18 @ 18:51 by Grupo Key DO) Excessive daytime sleepiness (Acute) Shortened [place] interval (Acute) Abnormal EKG (Acute) Chest pain (Acute) 1. Chest pain - trop neg, d dimer neg, esr/crp neg, stres with poor window, Left heart cath in AM. everyone in my family has heart problems. Continue asa/plavix 2. Mild bradycardia - no block appreciated. 3. HLD - on gemfibrazole for significantly elevated triglycerides. 4. Mod-sev sleep apnea per recent PSG, needs to go back for titration of CPAP. DC planning: pending results of heart cath in AM This patient was seen by Jose Du PA-C under the supervision of Dr. Maria. <Arlene Maria - Last Filed: 07/23/18 14:21> - Physical Exam Vital Signs Temp Pulse Resp BP Pulse Ox 98.5 F 63 16 120/73 98 07/23/18 08:07 07/23/18 10:53 07/23/18 08:07 07/23/18 08:07 07/23/18 08:07 Oxygen Flow Rate (L/min) 2 Oxygen Delivery Method Room Air Weight: 99.1 kg Body Mass Index (BMI) 29.6 Intake and Output for Last 24 Hours 07/21/18 07/22/18 07/23/18 23:59 23:59 23:59 Intake Total 150 / 150 100 / 100 Balance 150 / 150 100 / 100 Laboratory Tests Past 24 Hrs 07/22/18 07/22/18 07/22/18 16:50 16:50 16:50 WBC 6.1 RBC 5.15 Hgb 15.7 Hct 46.1 MCV 89.5 MCH 30.5 MCHC 34.1 RDW 12.5 RDW Differential 40.2 Plt Count 251 MPV 10.2 Immature Gran % (Auto) 0.200 Neut % (Auto) 43.7 L Lymph % (Auto) 45.2 H [place] % (Auto) 7.1 Eos % (Auto) 3.3 Baso % (Auto) 0.5 Absolute Neuts (auto) 2.7 Absolute Lymphs (auto) 2.74 Total Counted Not Reportable ESR D-Dimer Quant (PE/DVT) < 0.27 L Sodium 141 Potassium 3.9 Chloride 105 Carbon Dioxide 30.0 Anion Gap 6 BUN 12 Creatinine 1.03 Estim Creat Clear Calc 115.10 Est GFR (MDRD) Af Amer 109 Est GFR (MDRD) Non-Af 90 BUN/Creatinine Ratio 11.7 Glucose 104 Calcium 9.2 Troponin I < 0.015 C-React Prot High Sens 07/22/18 07/23/18 07/23/18 19:52 00:16 08:36 WBC RBC Hgb Hct MCV MCH MCHC RDW RDW Differential Plt Count MPV Immature Gran % (Auto) Neut % (Auto) Lymph % (Auto) [place] % (Auto) Eos % (Auto) Baso % (Auto) Absolute Neuts (auto) Absolute Lymphs (auto) Total Counted ESR 3 D-Dimer Quant (PE/DVT) Sodium Potassium Chloride Carbon Dioxide Anion Gap BUN Creatinine Estim Creat Clear Calc Est GFR (MDRD) Af Amer Est GFR (MDRD) Non-Af BUN/Creatinine Ratio Glucose Calcium Troponin I < 0.015 < 0.015 C-React Prot High Sens 07/23/18 08:36 WBC RBC Hgb Hct MCV MCH MCHC RDW RDW Differential Plt Count MPV Immature Gran % (Auto) Neut % (Auto) Lymph % (Auto) [place] % (Auto) Eos % (Auto) Baso % (Auto) Absolute Neuts (auto) Absolute Lymphs (auto) Total Counted ESR D-Dimer Quant (PE/DVT) Sodium Potassium Chloride Carbon Dioxide Anion Gap BUN Creatinine Estim Creat Clear Calc Est GFR (MDRD) Af Amer Est GFR (MDRD) Non-Af BUN/Creatinine Ratio Glucose Calcium Troponin I C-React Prot High Sens 0.51 Assessment/Plan This patient was seen in conjunction with ROSA MARIA Casillas. I have independently interviewed and examined the patient and reviewed pertinent historical, laboratory, and other data. Please refer to ROSA MARIA Casillas note for his patient's presentation, findings, and recommendations. I have reviewed and his note and concur with his documentation Patient was seen and examined. No new complaints. Due for stress echo today. Cardiology consulted. Telemetry shows sinus bradycardia, heart rate in the 50s Physical Exam: Gen: Appears anxious, not pale, not jaundiced CVS:HS I +II, regular, no murmurs RESP: CTA GI: Full, soft, nontender, no ballotable organs EXT:No edema ASSESSMENT: 1. Atypical chest pain 2. Bradycardia 3. Hyperlipidemia 4. TATIANA- moderate-severe Plan: Continue to monitor Cardiac cath in am per cardiology Code Visit Inpatient E&M: 32906 Subs Hosp L2
--- NOTE | 2018-07-23 13:22 | CASEMGMT ---
According to the [facility] website, the following are in-network tertiary facilities: [facility], [place], [facility], [place], [facility], [facility], [facility], [facility], [facility], and . Jignesh SCHWARTZ CM
[2018-07-24] VITALS (13 sets, daily range): BP systolic 108–127; BP diastolic 60–82; PULSE 51–68; RESP 16–18; TEMP 36.9–37; O2SAT 97–100
--- NOTE | 2018-07-24 05:55 | EKG12_ITS ---
Test Reason : AM EKG Blood Pressure : / mmHG Vent. Rate : 053 BPM Atrial Rate : 053 BPM P-R Int : 140 ms QRS Dur : 104 ms QT Int : 416 ms P-R-T Axes : 044 028 023 degrees QTc Int : 390 ms Sinus bradycardia Otherwise normal ECG When compared with ECG of 22-JUL-2018 19:42, MANUAL COMPARISON REQUIRED, DATA IS UNCONFIRMED Confirmed by RACHNA COVARRUBIAS, NITHYA ([id number]), art editor KARLA ISAAC ([id number]) on 07/28/2018 8:15:28 AM Referred By: Grupo Key Confirmed By:NITHYA BRISCOE MD
[2018-07-24 05:57] LABS: Absolute Lymphocyte Count 2.37 X10^3/ul (0.83-4.51); Absolute Neutrophil Count 2.1 X10^3/uL (2.0-7.7); Basophil# 0.02 X10^3/uL; Basophil% 0.4 % (0-1); Eosinophil# 0.21 X10^3/uL; Eosinophils% 4.1 % (0-5); Hematocrit 43.6 % (40-54); Hemoglobin 15.2 g/dl (13.0-16.5); Lymphocyte # 2.37 X10^3/ul (4.0); Lymphocyte % 46.5 % (19-41); Mean Corp Hgb Conc 34.9 g/gl (32-36); Mean Corpuscular Hgb 30.2 pg (27.0-32.0); Mean Corpuscular Volume 86.7 fL (80-94); Mean Platelet Vol. 10.3 fl (6.2-12.0); Monocyte# 0.42 X10^3/uL; Monocyte% 8.2 % (0-10); Neutrophil # 2.07 X10^3/uL (2.7-7.7); Neutrophil % 40.6 % (47-70); Platelet Count 237 K/mm3 (150-450); RBC Distribution Width CV 12.5 % (11.6-14.6); RBC Distribution Width SD 38.7 fl (35.1-43.9); Red Blood Count 5.03 M/mm3 (4.6-6.2); White Blood Count 5.1 K/mm3 (4.4-11.0)
[2018-07-24 06:08] LABS: Prothrombin Time (Protime)PT. 13.2 SECONDS (11.7-14.9)
[2018-07-24 06:09] LABS: POSITIVE COUNT NO; POSITIVE DIFFERENTIAL NO; POSITIVE MORPHOLOGY NO; Partial Thromboplast Time 33.9 Seconds (24.1-36.2)
[2018-07-24] MEDS: Clopidogrel Bisulfate 75 MG Tablet PO (06:11)
[2018-07-24] MEDS: Aspirin E.C. 81 MG Tablet PO (06:11)
[2018-07-24 06:12] LABS: Anion Gap 8 (5-15); BUN 15 mg/dL (7-18); BUN/Creat Ratio 13.9 RATIO (10-20); Calcium,Total 8.8 mg/dL (8.5-10.1); Chloride 107 mmol/L (98-107); Creatinine, Serum 1.08 mg/dL (0.70-1.30); EST Glomerular Filtration Rate 85 mL/min (>60); Est Glom Filt Rate - Afr Amer 103 mL/min (>60); Estimated Creatinine Clearance 109.77 ml/min; Glucose 131 mg/dL (74-106); Potassium 3.8 mmol/L (3.5-5.1); Sodium Level 142 mmol/L (136-145)
[2018-07-24] MEDS: 0.9% Normal Saline 1,000 ML 15 ML IV (06:12)
[2018-07-24] MEDS: 0.9% NaCl Peripheral Flush Adult/Peds IV (06:15)
[2018-07-24] MEDS: DiphenhydrAMINE 25 MG Capsule 50 MG PO (07:41)
[2018-07-24 07:50] LABS: Color, Urine Yellow (Yellow); Glucose, Dipstick Normal (Normal); Ketone-Dipstick 5 mg/dl (Negative); Leukocyte Esterase-Dipstick Negative /ul (Negative); Nitrite-Dipstick Negative (Negative); Occult Blood-Urine Negative /ul (Negative); Protein-Dipstick Negative (Negative); Specific Gravity, Urine 1.025 (1.002-1.030); Urine Bilirubin Dipstick Negative (Negative); Urine Clarity Clear (Clear); Urine Urobilinogen 1 mg/dl (Normal)
[2018-07-24 07:59] LABS: Bacteria RARE /hpf (None Seen); Mucous, Urine 1+ /hpf (<or=2+); Red Blood Cells-Urine 0-5 SEEN /hpf (0-5); Squamous Epithelial Cells - UA 0-5 SEEN /hpf (0-5); White Blood Cells 0-5 SEEN /hpf (0-5)
--- NOTE | 2018-07-24 08:45 | CL.D_ITS ---
Patient Name: BRITTNEY MENDOZA Study Date: 07/24/2018 Performing: Abbe Hall MD Ht: 72.04 inches 183 cm : 1990 Wt: 218.26 lbs 99 kg Age: 28 Gender: male BSA: 2.21 PROCEDURE(S) PERFORMED [id number]/LV CLINICAL PROFILE AND INDICATIONS Indications: New Onset Angina <= 2 months, Worsening Angina, Suspected CAD Heart Failure: None Stress/Imaging Date: 07/23/2018Stress Echocardiogram: Indeterminant Angina Classification Anginal Classification w/in 2 Weeks: CCS IV CAD Presentations: Symptom unlikely to be ischemic. Comorbidities/Risk Factors: Dyslipidemia Family History of Premature CAD CONCLUSIONS Normal LV size, wall motion,and systolic function Perserved Left Ventricular systolic function with normal EDP LVEF: by LV gram 65 % Non obstructive coronary arteries RECOMMENDATIONS Management as per referring Patient Registration Representative Continue baby asa, d/c plavix, start cardizem CD 120mg po daily. If pt transitions to exertional ang isacc despite maximal medical therayp, will consider FFR of ostial LAD. PCI of ostial LAD would be agus ewhat problematic given proximity to DIAG. Manual sheath removal. Risk factor modification DESCRIPTION OF PROCEDURE The patient arrived to the procedure lab. The risks and benefits of the procedure as well as a full d escription of our services here and current unavailability of surgical backup were fully explained to the patient and/or their significant other prior to the catheterization. The Timeout was completed, verifying the correct patient and procedure. The patient's procedural site was prepped and draped in the usual fashion. Local anesthetic was given subcutaneously to right groin region with Lidocaine 2%. Using a modified Seldinger technique, arterial access was obtained via the right femoral artery, a 4 Fr sheath was inserted Left Coronary Artery selective angiography was performed in multiple views us ing a 4 Fr. JL5 catheter. Right Coronary Artery selective angiography was then performed in multiple views using a 4 Fr. 3DRC catheter. Left Ventriculography was performed in [place] projection using a 4 Fr . Pigtail catheter. LV to AO pullback pressures were then recorded.The arterial sheath was pulled and manual compression applied until hemostasis is achieved. CORONARY ANGIOGRAPHY DOMINANCE: Right Dominant LEFT HEART ASSESSMENT Left Ventricular Ejection Fraction: by LV Gram 65 % Normal LV wall motion Normal Left Ventricular systolic function Normal Left Ventricular End Diastolic Pressure LVEDP: 13 mmHg LEFT MAIN: Angiographically normal LEFT ANTERIOR DECENDING ARTERY: PROX LAD: Mild luminal irregularities less than 30% DIAGONAL 1: Proximal - Angiographically normal CIRCUMFLEX ARTERY: Angiographically normal RIGHT CORONARY ARTERY: Angiographically normal RT PDA: Proximal - Angiographically normal COMPLICATIONS No Complications PROCEDURE MEDICATIONS Versed 1 mg IV Oxygen: 2 L/min via nasal cannula SUMMARY OF HEMODYNAMIC DATA Time AIR REST ECG 07:59:53 AO 112/70 (89) SA 08:17:12 LV 117/-14, 12 08:23:44 LV 113/-15, 11 08:23:50 LVp 122/-17, 11 08:24:04 AOp 110/61 (82) 08:24:09 Signed By Abbe Hall MD On 07/24/2018 08:44:05 Abbe Hall MD
[2018-07-24] MEDS: Ondansetron 4 MG/2 ML Vial IV (10:01)
[2018-07-24] MEDS: Morphine 2 MG/ML Syringe IV (10:02)
[2018-07-24] MEDS: dilTIAZem CD 120 MG Capsule PO (10:05)
[2018-07-24] MEDS: Gemfibrozil 600 MG Tablet PO (10:05)
--- NOTE | 2018-07-24 10:42 | PCM.DC ---
- Discharge Diagnoses Current Active Problems: Current Active and Chronic Problems (Last Updated 07/24/18 @ 08:59 by Gill Taylor) Atherosclerotic heart disease of [place] coronary artery without angina pectoris (Chronic) Mild, diffuse <30% in LAD per [facility] 07/24/2018 History of left heart catheterization (Chronic 07/24/18) Normal LV size, wall motion,and systolic function; Perserved Left Ventricular systolic function with normal EDP; LVEF: by LV gram 65 %; Non obstructive coronary arteries: If pt transitions to exertional angina despite maximal medical therapy, will consider FFR of ostial LAD. PCI of ostial LAD would be somewhat problematic given proximity to DIAG. You will use the following diet at home:: Cardiac - <2 g sodium, Clear liquid - 1800 lesly / day Your food should be the consistency of: Regular Your liquids should be the consistency of: Regular/Thin Discharge Activity: Return to Normal Activity Allergies/Adverse Reactions: Allergies No Known Allergies Allergy (Unverified 07/22/18 16:54) Medications to take at Discharge Gemfibrozil 600 mg PO BID 07/22/18 Aspirin E.C. [Ecotrin] 81 mg PO DAILY@0800 tablet 07/24/18 Diltiazem CD [Cardizem CD] 120 mg PO DAILY #30 capsule 07/24/18 The following prescriptions were given: Diltiazem CD [Cardizem CD] 120 mg PO DAILY #30 capsule Primary Care Physician: Care Physician,No Primary [Primary Care Provider] - Please follow up with your Primary Care Physician in: 1-2 weeks Test Results: Test results from this visit will be discussed in further detail at your follow-up appointment, if applicable. Please Follow Up With: Abbe Hall MD When: as directed Proposed Discharge Date: 07/24/18
--- NOTE | 2018-07-24 10:46 | DCINST_ITS ---
- Discharge Diagnoses Current Active Problems: Current Active and Chronic Problems (Last Updated 07/24/18 @ 08:59 by Gill Taylor) Atherosclerotic heart disease of [place] coronary artery without angina pectoris (Chronic) Mild, diffuse <30% in LAD per [facility] 07/24/2018 History of left heart catheterization (Chronic 07/24/18) Normal LV size, wall motion,and systolic function; Perserved Left Ventricular systolic function with normal EDP; LVEF: by LV gram 65 %; Non obstructive coronary arteries: If pt transitions to exertional angina despite maximal medical therapy, will consider FFR of ostial LAD. PCI of ostial LAD would be somewhat problematic given proximity to DIAG. You will use the following diet at home:: Cardiac - <2 g sodium, Clear liquid - 1800 lesly / day Your food should be the consistency of: Regular Your liquids should be the consistency of: Regular/Thin Discharge Activity: Return to Normal Activity Allergies/Adverse Reactions: Allergies No Known Allergies Allergy (Unverified 07/22/18 16:54) Medications to take at Discharge Gemfibrozil 600 mg PO BID 07/22/18 Aspirin E.C. [Ecotrin] 81 mg PO DAILY@0800 tablet 07/24/18 Diltiazem CD [Cardizem CD] 120 mg PO DAILY #30 capsule 07/24/18 The following prescriptions were given: Diltiazem CD [Cardizem CD] 120 mg PO DAILY #30 capsule Primary Care Physician: Care Physician,No Primary [Primary Care Provider] - Please follow up with your Primary Care Physician in: 1-2 weeks Test Results: Test results from this visit will be discussed in further detail at your follow- up appointment, if applicable. Please Follow Up With: Abbe Hall MD When: as directed Proposed Discharge Date: 07/24/18
--- NOTE | 2018-07-24 12:58 | NURSING ---
WALKED PT IN [place], NO DIZZINESS. HEART CATH SITE CHECKED POST WALK, INTACT.
--- NOTE | 2018-07-24 15:15 | PCM.DC.SUM ---
<Jose Du - Last Filed: 07/24/18 15:15> Discharge Date and Diagnosis Date of Admission: 07/22/18 Date of Discharge: 07/24/18 - Primary Discharge Diagnosis Chest pain, disease at ostial LAD Mild bradycardia HLD Mod-severe sleep apnea - Secondary Discharge Diagnosis Chronic Problems (Last Updated 07/24/18 @ 09:00 by Gill Taylor) Atherosclerotic heart disease of [place] coronary artery without angina pectoris (Chronic) Mild, diffuse <30% in LAD per [facility] 07/24/2018 History of left heart catheterization (Chronic 07/24/18) Normal LV size, wall motion,and systolic function; Perserved Left Ventricular systolic function with normal EDP; LVEF: by LV gram 65 %; Non obstructive coronary arteries: If pt transitions to exertional angina despite maximal medical therapy, will consider FFR of ostial LAD. PCI of ostial LAD would be somewhat problematic given proximity to DIAG. Family history of ischemic heart disease (Chronic) Bradycardia (Chronic) Hospital Course and Treatment Imaging Results: RAD/Chest 1 View (Portable) IMPRESSION: Normal x-ray examination of the chest. Stress Echo: Interpretation Summary The estimated ejection fraction is 65 %. Abnormal, adequate, treadmill echocardiogram. Negative for ischemia by EKG and echocardiographic anterior. Patient did develop chest discomfort during exercise which radiated down his left arm, and resolved in recovery. No associated EKG or echocardiographic changes during that time. No arrhythmias noted. Final LVEF is 75%. Test terminated due to chest pain. Difficult echo windows requiring Definity agent for enhancement. No complications. The study was technically difficult. Contrast injection was performed. Left heart cath CONCLUSIONS Normal LV size, wall motion,and systolic function Perserved Left Ventricular systolic function with normal EDP LVEF: by LV gram 65 % Non obstructive coronary arteries RECOMMENDATIONS Management as per referring Preparer Making Department Continue baby asa, d/c plavix, start cardizem CD 120mg po daily. If pt transitions to exertional angina despite maximal medical therayp, will consider FFR of ostial LAD. PCI of ostial LAD would be somewhat problematic given proximity to DIAG. Manual sheath removal. Risk factor modification Consults: Hall - Cardiology Operations: None Procedures: Cardiac catheterization, Stress test Summary of Care Provided: Hospital Course: The patient is a 28 year old M past medical history of hyperlipidemia, hypertriglyceridemia, moderate to severe sleep apnea, strong family history of heart disease, who presented to the emergency room with complaints of chest pain that is been progressively worsening over the past month. The pain was described as midsternal chest pressure radiating into the left arm worse with exertion, better at rest, and occurring intermittently. EKG was negative, troponin was negative, d-dimer was negative, chest x-ray is negative. He was admitted to the PCU and placed on telemetry. Cardiology was consulted. He underwent stress echocardiogram which was negative however there is poor window. Given his history and the poor windows decided that he would undergo a heart catheterization the following day. This did not demonstrate anything that required stenting at this time, there was an area of concern at the ostial LAD that may require stenting in the future. He was placed on Cardizem and baby aspirin. He was in stable condition following the heart catheterization and was discharged home. He will follow-up with his PCP in 1-2 weeks and follow-up with cardiology as directed. He was also advised to discuss with his PCP about starting medication for anxiety, cardiology felt that these are not indicated at this time as there may be side effects of coronary vasospasm. This patient was seen by Jose Du PA-C under the supervision of Doctor Maria. [] - Physical Exam General: Alert, Oriented x3, Cooperative HEENT: Atraumatic, PERRLA, EOMI, Normocephalic Neck: Supple, No JVD, Negative Carotid Bruits Lungs: Clear to auscultation, Normal air movement Cardiovascular: Regular rate, No murmurs Abdomen: Bowel Sounds Present, Soft, Non Tender Extremities: No edema, Capillary Refill Less than 3 Seconds Skin: No rashes, No breakdown Musculoskeletal: No Tenderness to Palpation of Joints or Extremities Neurological: Cranial nerves II-XII grossly intact Psych/Mental Status: Normal Affect, Appropriate, Alert and oriented to time, place, person, mood and affect Vital Signs Temp Pulse Resp BP Pulse Ox 98.4 F 65 16 121/78 H 98 07/24/18 11:45 07/24/18 12:39 07/24/18 12:39 07/24/18 12:39 07/24/18 12:39 Oxygen Flow Rate (L/min) 2 Oxygen Delivery Method Room Air Weight: 218 lb 7.649 oz Body Mass Index (BMI) 29.6 Intake and Output for Last 24 Hours 04/03/19 04/04/19 04/05/19 23:59 23:59 23:59 Intake Total 150 / 150 350 / 350 750 / 750 Output Total 0 / 0 Balance 150 / 150 350 / 350 750 / 750 Laboratory Tests Past 24 Hrs 07/24/18 07/24/18 07/24/18 05:18 05:18 05:18 WBC 5.1 RBC 5.03 Hgb 15.2 Hct 43.6 MCV 86.7 MCH 30.2 MCHC 34.9 RDW 12.5 RDW Differential 38.7 Plt Count 237 MPV 10.3 Immature Gran % (Auto) 0.200 Neut % (Auto) 40.6 L Lymph % (Auto) 46.5 H [place] % (Auto) 8.2 Eos % (Auto) 4.1 Baso % (Auto) 0.4 Absolute Neuts (auto) 2.1 Absolute Lymphs (auto) 2.37 Total Counted Not Reportable PT 13.2 INR 1.0 APTT 33.9 Sodium 142 Potassium 3.8 Chloride 107 Carbon Dioxide 27.0 Anion Gap 8 BUN 15 Creatinine 1.08 Estim Creat Clear Calc 109.77 Est GFR (MDRD) Af Amer 103 Est GFR (MDRD) Non-Af 85 BUN/Creatinine Ratio 13.9 Glucose 131 H Calcium 8.8 Urine Color Urine Clarity Urine pH Ur Specific [place] Urine Protein Urine Glucose (UA) Urine Ketones Urine Occult Blood Urine Nitrite Urine Bilirubin Urine Urobilinogen Ur Leukocyte Esterase Urine RBC Urine WBC Ur Squamous Epith Cells Urine Bacteria Urine Mucus 07/24/18 06:45 WBC RBC Hgb Hct MCV MCH MCHC RDW RDW Differential Plt Count MPV Immature Gran % (Auto) Neut % (Auto) Lymph % (Auto) [place] % (Auto) Eos % (Auto) Baso % (Auto) Absolute Neuts (auto) Absolute Lymphs (auto) Total Counted PT INR APTT Sodium Potassium Chloride Carbon Dioxide Anion Gap BUN Creatinine Estim Creat Clear Calc Est GFR (MDRD) Af Amer Est GFR (MDRD) Non-Af BUN/Creatinine Ratio Glucose Calcium Urine Color Yellow Urine Clarity Clear Urine pH 5.0 Ur Specific [place] 1.025 Urine Protein Negative Urine Glucose (UA) Normal Urine Ketones 5 H Urine Occult Blood Negative Urine Nitrite Negative Urine Bilirubin Negative Urine Urobilinogen 1 H Ur Leukocyte Esterase Negative Urine RBC 0-5 SEEN Urine WBC 0-5 SEEN Ur Squamous Epith Cells 0-5 SEEN Urine Bacteria RARE Urine Mucus 1+ Discharge Diet: Low fat/ Low Cholesterol, 2000 mg Sodium Diet Discharge Activity: Return to Normal Activity Home Medications: Medications to take at Discharge Gemfibrozil 600 mg PO BID 07/22/18 Aspirin E.C. [Ecotrin] 81 mg PO DAILY@0800 tablet 07/24/18 Diltiazem CD [Cardizem CD] 120 mg PO DAILY #30 capsule 07/24/18 Following Prescrptions Were Given to Patient: Diltiazem CD [Cardizem CD] 120 mg PO DAILY #30 capsule Primary Care Physician: Care Physician,No Primary [Primary Care Provider] - Please follow up with your Primary Care Physician in: 1-2 weeks Please Follow Up With: Abbe Hall MD When: as directed Disposition: Home Minutes spent on discharge:: 35 Patient Condition:: Stable Medical Necessity - Tobacco Use Smoking Status: Former smoker Tobacco Use: Cigarettes Meaningful Use Info Meaningful Use Diagnoses (Choose all that apply): None applicable <Arlene Maria - Last Filed: 07/24/18 17:24> Discharge Date and Diagnosis - Secondary Discharge Diagnosis Chronic Problems (Last Updated 07/24/18 @ 09:00 by Gill Taylor) Atherosclerotic heart disease of [place] coronary artery without angina pectoris (Chronic) Mild, diffuse <30% in LAD per [facility] 07/24/2018 History of left heart catheterization (Chronic 07/24/18) Normal LV size, wall motion,and systolic function; Perserved Left Ventricular systolic function with normal EDP; LVEF: by LV gram 65 %; Non obstructive coronary arteries: If pt transitions to exertional angina despite maximal medical therapy, will consider FFR of ostial LAD. PCI of ostial LAD would be somewhat problematic given proximity to [facility]. Family history of ischemic heart disease (Chronic) Bradycardia (Chronic) Hospital Course and Treatment Summary of Care Provided: This patient was seen in conjunction with ROSA MARIA Casillas. I have independently interviewed and examined the patient and reviewed pertinent historical, laboratory, and other data. Please refer to ROSA MARIA Casillas note for his patient's presentation, findings, and recommendations. I have reviewed and his note and concur with his documentation. 28-year-old male with past medical history of dyslipidemia, TATIANA, strong family history of heart disease, who follows with Dr. Hall in the outpatient, comes in with complaints of chest pain that has been progressively worse over the last few weeks. Patient's admitting EKG was unremarkable. Troponins were unremarkable. D-dimer was negative, chest x-ray was unremarkable. He was admitted to PCU on a momonitored on the telemetry with no events. He remained bradycardic with heart rate in the 50s. Neurology was consulted. He underwent stress echo which was negative. Patient had chest pain prior to start of the stress echo. He underwent cardiac cath that was essentially negative except for an area of concern at the ostial LAD. Patient was said to have an area of questionable vasospasms and was put on Cardizem aspirin. He will follow-up with the music typographer on discharge. We discussed future start of medication for anxiety. Patient was told to monitor for worsening bradycardia or acute symptoms whilst on this medication. Physical Exam: Gen: Appears anxious, not pale, not jaundiced CVS:HS I +II, regular, no murmurs RESP: CTA GI: Full, soft, nontender, no ballotable organs EXT:No edema - Physical Exam Vital Signs Temp Pulse Resp BP Pulse Ox 98.4 F 65 16 121/78 H 98 07/24/18 11:45 07/24/18 12:39 07/24/18 12:39 07/24/18 12:39 07/24/18 12:39 Oxygen Flow Rate (L/min) 2 Oxygen Delivery Method Room Air Weight: 99.1 kg Body Mass Index (BMI) 29.6 Intake and Output for Last 24 Hours 07/22/18 07/23/18 07/24/18 23:59 23:59 23:59 Intake Total 150 / 150 350 / 350 750 / 750 Output Total 0 / 0 Balance 150 / 150 350 / 350 750 / 750 Laboratory Tests Past 24 Hrs 07/24/18 07/24/18 07/24/18 05:18 05:18 05:18 WBC 5.1 RBC 5.03 Hgb 15.2 Hct 43.6 MCV 86.7 MCH 30.2 MCHC 34.9 RDW 12.5 RDW Differential 38.7 Plt Count 237 MPV 10.3 Immature Gran % (Auto) 0.200 Neut % (Auto) 40.6 L Lymph % (Auto) 46.5 H [place] % (Auto) 8.2 Eos % (Auto) 4.1 Baso % (Auto) 0.4 Absolute Neuts (auto) 2.1 Absolute Lymphs (auto) 2.37 Total Counted Not Reportable PT 13.2 INR 1.0 APTT 33.9 Sodium 142 Potassium 3.8 Chloride 107 Carbon Dioxide 27.0 Anion Gap 8 BUN 15 Creatinine 1.08 Estim Creat Clear Calc 109.77 Est GFR (MDRD) Af Amer 103 Est GFR (MDRD) Non-Af 85 BUN/Creatinine Ratio 13.9 Glucose 131 H Calcium 8.8 Urine Color Urine Clarity Urine pH Ur Specific [place] Urine Protein Urine Glucose (UA) Urine Ketones Urine Occult Blood Urine Nitrite Urine Bilirubin Urine Urobilinogen Ur Leukocyte Esterase Urine RBC Urine WBC Ur Squamous Epith Cells Urine Bacteria Urine Mucus 07/24/18 06:45 WBC RBC Hgb Hct MCV MCH MCHC RDW RDW Differential Plt Count MPV Immature Gran % (Auto) Neut % (Auto) Lymph % (Auto) [place] % (Auto) Eos % (Auto) Baso % (Auto) Absolute Neuts (auto) Absolute Lymphs (auto) Total Counted PT INR APTT Sodium Potassium Chloride Carbon Dioxide Anion Gap BUN Creatinine Estim Creat Clear Calc Est GFR (MDRD) Af Amer Est GFR (MDRD) Non-Af BUN/Creatinine Ratio Glucose Calcium Urine Color Yellow Urine Clarity Clear Urine pH 5.0 Ur Specific [place] 1.025 Urine Protein Negative Urine Glucose (UA) Normal Urine Ketones 5 H Urine Occult Blood Negative Urine Nitrite Negative Urine Bilirubin Negative Urine Urobilinogen 1 H Ur Leukocyte Esterase Negative Urine RBC 0-5 SEEN Urine WBC 0-5 SEEN Ur Squamous Epith Cells 0-5 SEEN Urine Bacteria RARE Urine Mucus 1+ Code Visit Inpatient E&M: [id number] Disch Hosp
--- NOTE | 2018-07-24 15:22 | DS.PCM_ITS ---
<Jose Du - Last Filed: 07/24/18 15:15> Discharge Date and Diagnosis Date of Admission: 07/22/18 Date of Discharge: 07/24/18 - Primary Discharge Diagnosis Chest pain, disease at ostial LAD Mild bradycardia HLD Mod-severe sleep apnea - Secondary Discharge Diagnosis Chronic Problems (Last Updated 07/24/18 @ 09:00 by Gill Taylor) Atherosclerotic heart disease of [place] coronary artery without angina pectoris (Chronic) Mild, diffuse <30% in LAD per [facility] 07/24/2018 History of left heart catheterization (Chronic 07/24/18) Normal LV size, wall motion,and systolic function; Perserved Left Ventricular systolic function with normal EDP; LVEF: by LV gram 65 %; Non obstructive coronary arteries: If pt transitions to exertional angina despite maximal medical therapy, will consider FFR of ostial LAD. PCI of ostial LAD would be somewhat problematic given proximity to DIAG. Family history of ischemic heart disease (Chronic) Bradycardia (Chronic) Hospital Course and Treatment Imaging Results: RAD/Chest 1 View (Portable) IMPRESSION: Normal x-ray examination of the chest. Stress Echo: Interpretation Summary The estimated ejection fraction is 65 %. Abnormal, adequate, treadmill echocardiogram. Negative for ischemia by EKG and echocardiographic anterior. Patient did develop chest discomfort during exercise which radiated down his left arm, and resolved in recovery. No associated EKG or echocardiographic changes during that time. No arrhythmias noted. Final LVEF is 75%. Test terminated due to chest pain. Difficult echo windows requiring Definity agent for enhancement. No complications. The study was technically difficult. Contrast injection was performed. Left heart cath CONCLUSIONS Normal LV size, wall motion,and systolic function Perserved Left Ventricular systolic function with normal EDP LVEF: by LV gram 65 % Non obstructive coronary arteries RECOMMENDATIONS Management as per referring [employer] Continue baby asa, d/c plavix, start cardizem CD 120mg po daily. If pt transitions to exertional angina despite maximal medical therayp, will consider FFR of ostial LAD. PCI of ostial LAD would be somewhat problematic given proximity to DIAG. Manual sheath removal. Risk factor modification Consults: Hall - Cardiology Operations: None Procedures: Cardiac catheterization, Stress test Summary of Care Provided: Hospital Course: The patient is a 28 year old M past medical history of hyperlipidemia, hypertriglyceridemia, moderate to severe sleep apnea, strong family history of heart disease, who presented to the emergency room with complaints of chest pain that is been progressively worsening over the past month. The pain was described as midsternal chest pressure radiating into the left arm worse with exertion, better at rest, and occurring intermittently. EKG was negative, troponin was negative, d-dimer was negative, chest x-ray is negative. He was admitted to the PCU and placed on telemetry. Cardiology was consulted. He underwent stress echocardiogram which was negative however there is poor window. Given his history and the poor windows decided that he would undergo a heart catheterization the following day. This did not demonstrate anything that requi red stenting at this time, there was an area of concern at the ostial LAD that may require stenting in the future. He was placed on Cardizem and baby aspirin. He was in stable condition following the heart catheterization and was discharged home. He will follow-up with his PCP in 1-2 weeks and follow-up with cardiology as directed. He was also advised to discuss with his PCP about starting medication for anxiety, cardiology felt that these are not indicated at this time as there may be side effects of coronary vasospasm. This patient was seen by Jose Du PA-C under the supervision of Doctor Maria. [] - Physical Exam General: Alert, Oriented x3, Cooperative HEENT: Atraumatic, PERRLA, EOMI, Normocephalic Neck: Supple, No JVD, Negative Carotid Bruits Lungs: Clear to auscultation, Normal air movement Cardiovascular: Regular rate, No murmurs Abdomen: Bowel Sounds Present, Soft, Non Tender Extremities: No edema, Capillary Refill Less than 3 Seconds Skin: No rashes, No breakdown Musculoskeletal: No Tenderness to Palpation of Joints or Extremities Neurological: Cranial nerves II-XII grossly intact Psych/Mental Status: Normal Affect, Appropriate, Alert and oriented to time, place, person, mood and affect Vital Signs Temp Pulse Resp BP Pulse Ox 98.4 F 65 16 121/78 H 98 07/24/18 11:45 07/24/18 12:39 07/24/18 12:39 07/24/18 12:39 07/24/18 12:39 Oxygen Flow Rate (L/min) 2 Oxygen Delivery Method Room Air Weight: 218 lb 7.649 oz Body Mass Index (BMI) 29.6 Intake and Output for Last 24 Hours 07/22/18 07/23/18 07/24/18 23:59 23:59 23:59 Intake Total 150 / 150 350 / 350 750 / 750 Output Total 0 / 0 Balance 150 / 150 350 / 350 750 / 750 Laboratory Tests Past 24 Hrs 07/24/18 07/24/18 07/24/18 05:18 05:18 05:18 WBC 5.1 RBC 5.03 Hgb 15.2 Hct 43.6 MCV 86.7 MCH 30.2 MCHC 34.9 RDW 12.5 RDW Differential 38.7 Plt Count 237 MPV 10.3 Immature Gran % (Auto) 0.200 Neut % (Auto) 40.6 L Lymph % (Auto) 46.5 H Ray % (Auto) 8.2 Eos % (Auto) 4.1 Baso % (Auto) 0.4 Absolute Neuts (auto) 2.1 Absolute Lymphs (auto) 2.37 Total Counted Not Reportable PT 13.2 INR 1.0 APTT 33.9 Sodium 142 Potassium 3.8 Chloride 107 Carbon Dioxide 27.0 Anion Gap 8 BUN 15 Creatinine 1.08 Estim Creat Clear Calc 109.77 Est GFR (MDRD) Af Amer 103 Est GFR (MDRD) Non-Af 85 BUN/Creatinine Ratio 13.9 Glucose 131 H Calcium 8.8 Urine Color Urine Clarity Urine pH Ur Specific [place] Urine Protein Urine Glucose (UA) Urine Ketones Urine Occult Blood Urine Nitrite Urine Bilirubin Urine Urobilinogen Ur Leukocyte Esterase Urine RBC Urine WBC Ur Squamous Epith Cells Urine Bacteria Urine Mucus 07/24/18 06:45 WBC RBC Hgb Hct MCV MCH MCHC RDW RDW Differential Plt Count MPV Immature Gran % (Auto) Neut % (Auto) Lymph % (Auto) Ray % (Auto) Eos % (Auto) Baso % (Auto) Absolute Neuts (auto) Absolute Lymphs (auto) Total Counted PT INR APTT Sodium Potassium Chloride Carbon Dioxide Anion Gap BUN Creatinine Estim Creat Clear Calc Est GFR (MDRD) Af Amer Est GFR (MDRD) Non-Af BUN/Creatinine Ratio Glucose Calcium Urine Color Yellow Urine Clarity Clear Urine pH 5.0 Ur Specific [place] 1.025 Urine Protein Negative Urine Glucose (UA) Normal Urine Ketones 5 H Urine Occult Blood Negative Urine Nitrite Negative Urine Bilirubin Negative Urine Urobilinogen 1 H Ur Leukocyte Esterase Negative Urine RBC 0-5 SEEN Urine WBC 0-5 SEEN Ur Squamous Epith Cells 0-5 SEEN Urine Bacteria RARE Urine Mucus 1+ Discharge Diet: Low fat/ Low Cholesterol, 2000 mg Sodium Diet Discharge Activity: Return to Normal Activity Home Medications: Medications to take at Discharge Gemfibrozil 600 mg PO BID 07/22/18 Aspirin E.C. [Ecotrin] 81 mg PO DAILY@0800 tablet 07/24/18 Diltiazem CD [Cardizem CD] 120 mg PO DAILY #30 capsule 07/24/18 Following Prescrptions Were Given to Patient: Diltiazem CD [Cardizem CD] 120 mg PO DAILY #30 capsule Primary Care Physician: Care Physician,No Primary [Primary Care Provider] - Please follow up with your Primary Care Physician in: 1-2 weeks Please Follow Up With: Abbe Hall MD When: as directed Disposition: Home Minutes spent on discharge:: 35 Patient Condition:: Stable Medical Necessity - Tobacco Use Smoking Status: Former smoker Tobacco Use: Cigarettes Meaningful Use Info Meaningful Use Diagnoses (Choose all that apply): None applicable <Candace,Linden - Last Filed: 07/24/18 17:24> Discharge Date and Diagnosis - Secondary Discharge Diagnosis Chronic Problems (Last Updated 07/24/18 @ 09:00 by Gill Taylor) Atherosclerotic heart disease of [place] coronary artery without angina pectoris (Chronic) Mild, diffuse <30% in LAD per [facility] 07/24/2018 History of left heart catheterization (Chronic 07/24/18) Normal LV size, wall motion,and systolic function; Perserved Left Ventricular systolic function with normal EDP; LVEF: by LV gram 65 %; Non obstructive coronary arteries: If pt transitions to exertional angina despite maximal medical therapy, will consider FFR of ostial LAD. PCI of ostial LAD would be somewhat problematic given proximity to [facility]. Family history of ischemic heart disease (Chronic) Bradycardia (Chronic) Hospital Course and Treatment Summary of Care Provided: This patient was seen in conjunction with ROSA MARIA Casillas. I have independently interviewed and examined the patient and reviewed pertinent historical, laboratory, and other data. Please refer to ROSA MARIA Casillas note for his patient's presentation, findings, and recommendations. I have reviewed and his note and concur with his documentation. 28-year-old male with past medical history of dyslipidemia, TATIANA, strong family history of heart disease, who follows with Dr. Hall in the outpatient, comes in with complaints of chest pain that has been progressively worse over the last few weeks. Patient's admitting EKG was unremarkable. Troponins were unremarkable. D-dimer was negative, chest x-ray was unremarkable. He was admitted to PCU on a momonitored on the telemetry with no events. He remained bradycardic with heart rate in the 50s. Neurology was consulted. He underwent stress echo which was negative. Patient had chest pain prior to start of the stress echo. He underwent cardiac cath that was essentially negative except for an area of concern at the ostial LAD. Patient was said to have an area of questionable vasospasms and was put on Cardizem aspirin. He will follow-up with the online community manager on discharge. We discussed future start of medication for anxiety. Patient was told to monitor for worsening bradycardia or acute symptoms whilst on this medication. Physical Exam: Gen: Appears anxious, not pale, not jaundiced CVS:HS I +II, regular, no murmurs RESP: CTA GI: Full, soft, nontender, no ballotable organs EXT:No edema - Physical Exam Vital Signs Temp Pulse Resp BP Pulse Ox 98.4 F 65 16 121/78 H 98 07/24/18 11:45 07/24/18 12:39 07/24/18 12:39 07/24/18 12:39 07/24/18 12:39 Oxygen Flow Rate (L/min) 2 Oxygen Delivery Method Room Air Weight: 99.1 kg Body Mass Index (BMI) 29.6 Intake and Output for Last 24 Hours 07/22/18 07/23/18 07/24/18 23:59 23:59 23:59 Intake Total 150 / 150 350 / 350 750 / 750 Output Total 0 / 0 Balance 150 / 150 350 / 350 750 / 750 Laboratory Tests Past 24 Hrs 07/24/18 07/24/18 07/24/18 05:18 05:18 05:18 WBC 5.1 RBC 5.03 Hgb 15.2 Hct 43.6 MCV 86.7 MCH 30.2 MCHC 34.9 RDW 12.5 RDW Differential 38.7 Plt Count 237 MPV 10.3 Immature Gran % (Auto) 0.200 Neut % (Auto) 40.6 L Lymph % (Auto) 46.5 H Ray % (Auto) 8.2 Eos % (Auto) 4.1 Baso % (Auto) 0.4 Absolute Neuts (auto) 2.1 Absolute Lymphs (auto) 2.37 Total Counted Not Reportable PT 13.2 INR 1.0 APTT 33.9 Sodium 142 Potassium 3.8 Chloride 107 Carbon Dioxide 27.0 Anion Gap 8 BUN 15 Creatinine 1.08 Estim Creat Clear Calc 109.77 Est GFR (MDRD) Af Amer 103 Est GFR (MDRD) Non-Af 85 BUN/Creatinine Ratio 13.9 Glucose 131 H Calcium 8.8 Urine Color Urine Clarity Urine pH Ur Specific [place] Urine Protein Urine Glucose (UA) Urine Ketones Urine Occult Blood Urine Nitrite Urine Bilirubin Urine Urobilinogen Ur Leukocyte Esterase Urine RBC Urine WBC Ur Squamous Epith Cells Urine Bacteria Urine Mucus 07/24/18 06:45 WBC RBC Hgb Hct MCV MCH MCHC RDW RDW Differential Plt Count MPV Immature Gran % (Auto) Neut % (Auto) Lymph % (Auto) Ray % (Auto) Eos % (Auto) Baso % (Auto) Absolute Neuts (auto) Absolute Lymphs (auto) Total Counted PT INR APTT Sodium Potassium Chloride Carbon Dioxide Anion Gap BUN Creatinine Estim Creat Clear Calc Est GFR (MDRD) Af Amer Est GFR (MDRD) Non-Af BUN/Creatinine Ratio Glucose Calcium Urine Color Yellow Urine Clarity Clear Urine pH 5.0 Ur Specific [place] 1.025 Urine Protein Negative Urine Glucose (UA) Normal Urine Ketones 5 H Urine Occult Blood Negative Urine Nitrite Negative Urine Bilirubin Negative Urine Urobilinogen 1 H Ur Leukocyte Esterase Negative Urine RBC 0-5 SEEN Urine WBC 0-5 SEEN Ur Squamous Epith Cells 0-5 SEEN Urine Bacteria RARE Urine Mucus 1+ Code Visit Inpatient E&M: [id number] Disch Hosp
== END 2018-07-24 10:46 | disposition home or self-care (01) ==
LOC: ED 17:39 → PCU 18:28
PROVIDERS: Internal Medicine Cardiovascular Disease; Emergency Provider Emergency Medicine; Visit Provider Internal Medicine
DX: R07.89 Other chest pain (principal); R06.02 Shortness of breath; R00.1 Bradycardia, unspecified; G47.33 Obstructive sleep apnea (adult) (pediatric); R94.31 Abnormal electrocardiogram [ECG] [EKG]; E78.5 Hyperlipidemia, unspecified; Z79.899 Other long term (current) drug therapy; Z87.891 Personal history of nicotine dependence; Z82.49 Family history of ischemic heart disease and other diseases of the circulatory system
CPT/HCPCS: 36415; 71045; 80048; 81001; 84484; 85025; 85379; 85610; 85652; 85730; 86141; 93005; 93017; 93306; 93350; 93458; 96374; 96375; 99152; 99218; 99285; J7030; Q9957; A4216; C1769; C1894; C8928; C8929; G0378; J2405; Q9967

== ENCOUNTER → 2018-08-03 19:47 | Outpatient (CLI) | payer MEDICAID, SELFPAY ==
[2018-07-28 09:30] VITALS: BMI 29.6
== END ==
PROVIDERS: Referring Provider Nurse Practitioner Acute Care; Visit Provider Nurse Practitioner Acute Care
DX: G47.33 Obstructive sleep apnea (adult) (pediatric) (principal)
CPT/HCPCS: 95811

== ENCOUNTER → 2018-08-28 10:51 | Outpatient (CLI) | payer MEDICAID, SELFPAY ==
[2018-07-28 09:30] VITALS: BMI 29.6
[2018-08-28 12:38] LABS: AST(SGOT) 22 U/L (15-37); Alanine Aminotransfer ALT/SGPT 48 U/L (16-61); Albumin, Serum 4.2 g/dL (3.2-5.0); Alkaline Phosphatase 51 U/L (45-117); Bilirubin, Direct 0.11 mg/dL (0.00-0.30); Cholesterol 201 mg/dL (200); Globulin 3.5 g/dL (2.2-4.2); High Density Lipoprotein 32 mg/dL; Protein, Total 7.7 g/dL (6.4-8.2); Triglycerides 212 mg/dL; Very Low Density Lipoprotein 42 mg/dL (5-40)
== END ==
PROVIDERS: Referring Provider Internal Medicine Cardiovascular Disease; Visit Provider Internal Medicine Cardiovascular Disease
DX: E78.5 Hyperlipidemia, unspecified (principal); E78.1 Pure hyperglyceridemia
CPT/HCPCS: 36415; 80061; 80076

== ENCOUNTER → 2019-05-25 07:24 | Outpatient (CLI) | payer OTHER, SELFPAY ==
[2019-05-24 10:34] VITALS: BMI 31.0
[2019-05-25 09:08] LABS: AST(SGOT) 14 U/L (15-37); Alanine Aminotransfer ALT/SGPT 36 U/L (16-61); Albumin, Serum 4.1 g/dL (3.2-5.0); Alkaline Phosphatase 55 U/L (45-117); Bilirubin, Direct 0.14 mg/dL (0.00-0.30); Cholesterol 194 mg/dL (200); Globulin 3.9 g/dL (2.2-4.2); High Density Lipoprotein 34 mg/dL; Triglycerides 291 mg/dL; Very Low Density Lipoprotein 58 mg/dL (5-40)
== END ==
PROVIDERS: Referring Provider Internal Medicine Cardiovascular Disease; Visit Provider Internal Medicine Cardiovascular Disease
DX: I25.10 Atherosclerotic heart disease of native coronary artery without angina pectoris (principal); E78.5 Hyperlipidemia, unspecified
CPT/HCPCS: 36415; 80061; 80076

== ENCOUNTER → 2019-06-28 20:00 | Outpatient (CLI) | payer OTHER, SELFPAY ==
[2019-05-27 08:57] VITALS: BMI 31.0
== END ==
PROVIDERS: Referring Provider Nurse Practitioner Acute Care; Visit Provider Nurse Practitioner Acute Care
DX: G47.33 Obstructive sleep apnea (adult) (pediatric) (principal)
CPT/HCPCS: 95811

== ENCOUNTER → 2019-07-16 11:11 | Outpatient (CLI) | payer OTHER, SELFPAY ==
[2019-05-27 08:57] VITALS: BMI 31.0
== END ==
PROVIDERS: Referring Provider Nurse Practitioner Acute Care; Visit Provider Nurse Practitioner Acute Care
DX: Z46.89 Encounter for fitting and adjustment of other specified devices (principal)

== ENCOUNTER → 2019-08-27 10:49 | Outpatient (CLI) | payer OTHER, SELFPAY ==
[2019-05-27 08:57] VITALS: BMI 31.0
--- NOTE | 2019-08-27 10:54 | STE_ITS ---
Reason For Study: CAD/ASHD/SOB Stress Results Protocol: Vasiliy Protocol Maximum Predicted HR: 189 bpm Target HR: 161 bpm % Maximum Predicted HR: 72 % Heart Stage Duration Rate BP Comment (mm:ss) (bpm) BASELINE 50 110/78 STAGE 1 3:00 77 122/84 STAGE 2 3:00 83 140/68 FEELS SOME DISCOMFORT IN HIS LEFT ARMPIT AND SHOULDER AREA, SLIGHT STAGE 3 3:00 104 138/84SOB NOTED STAGE 4 3:00 136 178/82STAGE ARM DISCOMFORT IS GETTING WORSE, SOB CONTINUES RECOVERY 76 130/80STAGE FEELING BETTER Stress Duration: 12:00 mm:ss Maximum Stress HR: 136 bpm Baseline Echocardiogram Findings The estimated ejection fraction is 65 %. Stress Echo Wall motion Data Resting WM Intermediate WM Stress WM Resting Wall Motion Wall Motion Stress No regional wall motion No regional wall motion abnormalities noted. abnormalities noted. EKG Data The baseline ECG displays normal sinus rhythm. The patient exercised according to the regular Vasiliy protocol for a total duration of 12:00. The maximum heart rate attained was 146 beats per minute. This was 77% of maximum predicted heart rate. The patient exercised into stage 5 of the Vasiliy protocol. During stress, there were no ST or T wave changes noted to suggest ischemia. No arrhythmias noted. No clinical angina was noted. Interpretation Summary The estimated ejection fraction is 65 %. Normal, adequate, treadmill echocardiogram. Negative for ischemia by EKG and echocardiographic criteria. No arrhythmias noted. Appropriate blood pressure response to exercise. Average exercise capacity for age. Patient developed slight chest discomfort at 7 minutes 40 seconds into exercise which remained the same until 10 minutes and 3 seconds during exercise. No associated EKG or echocardiographic abnormalities noted. Test terminated due to dyspnea and chest discomfort. Final LVEF is 75%. Although the patient did not reach target heart rate, his rate-pressure product of 23,852 made this an adequate test. Recommend clinical correlation or alternative mode of testing of corn occlusive disease and strongly suspected. No complications. Ordering Physician: Abbe Hall Referring Physician: Abbe Hall MD Performed By: Linda Smith, BRYAN, RVT
== END ==
PROVIDERS: Visit Provider Internal Medicine Cardiovascular Disease
DX: I25.10 Atherosclerotic heart disease of native coronary artery without angina pectoris (principal); R06.02 Shortness of breath
CPT/HCPCS: 93017; 93350

== ENCOUNTER → 2020-03-22 14:55 | Outpatient (CLI) | payer OTHER, MEDICAID, SELFPAY ==
[2020-03-22 13:58] VITALS: BMI 27.5
[2020-03-22 15:46] LABS: AST(SGOT) 10 U/L (15-37); Alanine Aminotransfer ALT/SGPT 23 U/L (16-61); Albumin, Serum 4.6 g/dL (3.2-5.0); Alkaline Phosphatase 59 U/L (45-117); Bilirubin, Direct 0.16 mg/dL (0.00-0.30); Cholesterol 232 mg/dL (200); Globulin 3.9 g/dL (2.2-4.2); High Density Lipoprotein 45 mg/dL; Protein, Total 8.5 g/dL (6.4-8.2); Triglycerides 158 mg/dL; Very Low Density Lipoprotein 32 mg/dL (5-40)
[2020-03-24 06:07] LABS: HEPATITIS B SURFACE AG Negative (Negative); Hepatitis A IgM Antibody Negative (Negative); Hepatitis B Core AB IgM Negative (Negative)
[2020-03-24 09:49] LABS: Hep C Antibodies <0.1 s/co ratio (0.0-0.9)
== END ==
PROVIDERS: Referring Provider Nurse Practitioner Family; Visit Provider Nurse Practitioner Family
DX: I25.10 Atherosclerotic heart disease of native coronary artery without angina pectoris (principal); E78.1 Pure hyperglyceridemia; Z82.49 Family history of ischemic heart disease and other diseases of the circulatory system; Z20.5 Contact with and (suspected) exposure to viral hepatitis
CPT/HCPCS: 36415; 80061; 80074; 80076

== ENCOUNTER → 2020-06-23 09:48 | Outpatient (CLI) | payer MEDICAID, SELFPAY ==
[2020-06-20 15:09] VITALS: BMI 27.5
--- NOTE | 2020-06-23 13:02 | STRESSREP_ITS ---
Stress Test Report Date: 06-23-2020 Procedure: Exercise tolerance test Indications: Chest pain: CAD; PCI Consent: Per the patient Procedure: The patient exercised on a Vasiliy protocol for 9 minutes and 39 seconds completing stage III and 39 seconds of stage IV achieving a peak heart rate of 136 bpm (72% predicted maximal heart rate) with a peak blood pressure 150/84 mmHg and a peak MET capacity of approximately 11 MET's. The baseline ECG demonstrated sinus bradycardia. The peak exercise ECG demonstrated no obvious ECG changes. There were no cardiac dysrhythmias pretest, during exercise, or recovery. The functional capacity was considered good. The patient had chest discomfort at peak exercise with spontaneous resolution in recovery. The examination was discontinued secondary to shortness of breath, fatigue, and leg discomfort. Impression: 1. Technically adequate (percent predicted maximal heart rate greater than 85%) exercise tolerance test 2. Peak exercise ECG with no obvious ECG changes 3. There were no cardiac dysrhythmias during exercise or recovery This note was generated with [employer]ation software. It may contain incorrect words, spelling, and punctuation that were not noted in checking the note before signing.
== END ==
PROVIDERS: Referring Provider Physician Assistant Medical; Visit Provider Physician Assistant Medical
DX: R07.9 Chest pain, unspecified (principal)
CPT/HCPCS: 93017

== ENCOUNTER → 2020-11-03 14:51 | Outpatient (CLI) | payer MEDICAID, SELFPAY ==
[2020-11-03 14:10] VITALS: BMI 27.5
[2020-11-03 16:35] LABS: Absolute Lymphocyte Count 2.48 X10^3/uL (0.83-4.51); Absolute Neutrophil Count 3.9 X10^3/uL (2.0-7.7); Basophil# 0.04 X10^3/uL; Basophil% 0.5 % (0-1); Eosinophil# 0.32 X10^3/uL; Eosinophils% 4.3 % (0-5); Hematocrit 43.4 % (40-54); Hemoglobin 14.4 g/dL (13.0-16.5); Lymphocyte # 2.48 X10^3/ul (0.83-4.51); Lymphocyte % 33.6 % (19-41); Mean Corp Hgb Conc 33.2 g/dL (32-36); Mean Corpuscular Hgb 29.8 pg (27.0-32.0); Mean Corpuscular Volume 89.9 fL (80-94); Mean Platelet Vol. 10.4 fl (6.2-12.0); Monocyte# 0.63 X10^3/uL; Monocyte% 8.5 % (0-10); NRBC Flagged by Analyzer 0 % (0-5); Neutrophil # 3.88 X10^3/uL (2.7-7.7); Neutrophil % 52.6 % (47-70); Platelet Count 319 K/mm3 (150-450); RBC Distribution Width CV 12.6 % (11.6-14.6); RBC Distribution Width SD 41.2 fl (35.1-43.9); Red Blood Count 4.83 M/mm3 (4.6-6.2); White Blood Count 7.4 K/mm3 (4.4-11.0)
[2020-11-03 17:48] LABS: Hemoglobin A1c 5.4 % (3.8-5.6)
[2020-11-03 19:08] LABS: ALB/GLOB Ratio 1.1 RATIO (0.9-2.4); AST(SGOT) 23 U/L (15-37); Alanine Aminotransfer ALT/SGPT 39 U/L (16-61); Albumin, Serum 4.2 g/dL (3.2-5.0); Alkaline Phosphatase 56 U/L (45-117); Anion Gap 7 (5-15); BUN 19 mg/dL (7-18); BUN/Creat Ratio 16.4 RATIO (10-20); Calcium,Total 9.4 mg/dL (8.5-10.1); Chloride 103 mmol/L (98-107); Creatinine, Serum 1.16 mg/dL (0.70-1.30); EST Glomerular Filtration Rate 77 mL/min (>60); Est Glom Filt Rate - Afr Amer 93 mL/min (>60); Globulin 3.9 g/dL (2.2-4.2); Glucose 79 mg/dL (74-106); Potassium 4.1 mmol/L (3.5-5.1); Protein, Total 8.1 g/dL (6.4-8.2); Sodium Level 137 mmol/L (136-145)
[2020-11-03 19:30] LABS: HIV - WCH Non-Reactive (Nonreactive)
== END ==
PROVIDERS: PCP Internal Medicine; Referring Provider Internal Medicine; Visit Provider Internal Medicine
DX: Z11.4 Encounter for screening for human immunodeficiency virus [HIV] (principal); R73.9 Hyperglycemia, unspecified; E78.5 Hyperlipidemia, unspecified
CPT/HCPCS: 36415; 80053; 83036; 85025; 86703

== ENCOUNTER → 2020-11-08 14:30 | Outpatient (CLI) | payer MEDICAID, SELFPAY ==
[2020-11-03 14:10] VITALS: BMI 27.5
--- NOTE | 2020-11-08 14:32 | RAD_ITS ---
STUDY: X-RAY - LUMBAR SPINE REASON FOR EXAM: Male, 30 years old. Chronic back pain TECHNIQUE: 4 view(s) of the lumbar spine were obtained including oblique views. COMPARISON: None FINDINGS: There is straightening of the normal lumbar lordosis. There is no substantial scoliosis. There is a normal alignment of the vertebrae. Mild anterior spondylosis at the L3-L4 level. Normal disc space heights. The soft tissue structures are unremarkable. RAD/L/S Spine Min 4 Views IMPRESSION: Loss of the normal lumbar lordosis. Mild degree of spondylosis at the L3-L4 level. Electronically Signed: Shahid Luciano MD at 14:54 EDT , Service support ,
--- NOTE | 2020-11-08 14:32 | RAD_ITS ---
STUDY: X-RAY - SACRUM/COCCYX REASON FOR EXAM: Male, 30 years old. Chronic Back Pain TECHNIQUE: 3 view(s) of the sacrum and coccyx were obtained. COMPARISON: None. FINDINGS: Normal bilateral sacroiliac joints. Normal visualized sacral ala and fused sacral bodies. Normal sacrococcygeal junction with a normal angulation. Normal coccygeal segments. The presacral soft tissue structures are unremarkable. RAD/Sacrum-Coccyx min 2 Views IMPRESSION: Normal x-rays of the sacrum and coccyx. Electronically Signed: Shahid Luciano MD at 21:41 EDT , Service support ,
== END ==
PROVIDERS: PCP Internal Medicine; Referring Provider Internal Medicine; Visit Provider Internal Medicine
DX: M54.9 Dorsalgia, unspecified (principal); G89.29 Other chronic pain
CPT/HCPCS: 72110; 72220

== ENCOUNTER 2020-11-17 14:56 | Emergency (ER) | payer MEDICAID, SELFPAY ==
[2020-11-03 14:10] VITALS: BMI 27.5
[2020-11-17 14:57] VITALS: PULSE 87; RESP 18; TEMP 36.9; O2SAT 100; BMI 30.9
[2020-11-17 15:07] VITALS: O2SAT 100
--- NOTE | 2020-11-17 15:07 | EKG12_ITS ---
Test Reason : CP Blood Pressure : / mmHG Vent. Rate : 086 BPM Atrial Rate : 086 BPM P-R Int : 132 ms QRS Dur : 092 ms QT Int : 360 ms P-R-T Axes : 070 046 035 degrees QTc Int : 430 ms Normal sinus rhythm Normal ECG Confirmed by TITO COVARRUBIAS, STEVE ([id number]), publications editor KARLA ISAAC ([id number]) on 11/23/2020 1:09:47 PM Referred By: TREMAINE Confirmed By:STEVE FRANCIS MD
--- NOTE | 2020-11-17 15:08 | RAD_ITS ---
STUDY: X-RAY CHEST REASON FOR EXAM: Male, 30 years old. Substernal chest pain TECHNIQUE: Single AP portable view of the chest. COMPARISON: None. FINDINGS: EKG leads overlie the chest, likely chronic elevation of the right hemidiaphragm The lungs are clear and expanded. There is no demonstrated pleural abnormality. Normal size heart. Normal mediastinum and kristyn. Normal visualized pulmonary arteries. Normal visualized aortic arch and descending thoracic aorta. Normal visualized thoracic spine. Normal visualized ribs, clavicles, and shoulders. There is no demonstrated abnormality of the visualized soft tissue structures of the upper abdomen. RAD/Chest 1 View (Portable) IMPRESSION: Normal x-ray examination of the chest. Electronically Signed: Francesco Barone MD at 15:27 EDT , Service support ,
[2020-11-17 15:18] LABS: Absolute Lymphocyte Count 3.86 X10^3/uL (0.83-4.51); Absolute Neutrophil Count 6.4 X10^3/uL (2.0-7.7); Basophil# 0.06 X10^3/uL; Basophil% 0.5 % (0-1); Eosinophil# 0.23 X10^3/uL; Hematocrit 46.6 % (40-54); Hemoglobin 15.8 g/dL (13.0-16.5); Lymphocyte # 3.86 X10^3/ul (0.83-4.51); Lymphocyte % 33.6 % (19-41); Mean Corp Hgb Conc 33.9 g/dL (32-36); Mean Corpuscular Hgb 30.2 pg (27.0-32.0); Mean Corpuscular Volume 88.9 fL (80-94); Mean Platelet Vol. 10.1 fl (6.2-12.0); Monocyte# 0.89 X10^3/uL; Monocyte% 7.8 % (0-10); NRBC Flagged by Analyzer 0 % (0-5); Neutrophil # 6.39 X10^3/uL (2.7-7.7); Neutrophil % 55.7 % (47-70); Platelet Count 351 K/mm3 (150-450); RBC Distribution Width CV 12.1 % (11.6-14.6); RBC Distribution Width SD 39.5 fl (35.1-43.9); Red Blood Count 5.24 M/mm3 (4.6-6.2); White Blood Count 11.5 K/mm3 (4.4-11.0)
[2020-11-17 15:36] LABS: Anion Gap 11 (5-15); BUN 14 mg/dL (7-18); BUN/Creat Ratio 11.5 RATIO (10-20); Calcium,Total 9.6 mg/dL (8.5-10.1); Chloride 103 mmol/L (98-107); Creatinine, Serum 1.22 mg/dL (0.70-1.30); EST Glomerular Filtration Rate 73 mL/min (>60); Est Glom Filt Rate - Afr Amer 88 mL/min (>60); Estimated Creatinine Clearance 95.41 ml/min; Glucose 118 mg/dL (74-106); Potassium 3.1 mmol/L (3.5-5.1); Sodium Level 138 mmol/L (136-145); Troponin-I HS 6.4 pg/mL (3.0-78.5)
[2020-11-17 15:56] VITALS: BP 141/78; PULSE 74; RESP 18; O2SAT 100
--- NOTE | 2020-11-17 16:29 | ED.VIS.CHEST ---
HPI History of Present Illness Chief Complaint: Chest Pain Informant: patient Narrative Narrative: Patient is a 30-year-old male who presents to the emergency department for an episode of left upper quadrant abdominal pain/lower chest pain. He states he was driving whenever he felt an electrical current go through his arms bilaterally. He started to get pain going down the left thigh that he thought was related to sciatica. He denies having this pain in his chest/abdomen before in the past. On arrival to the ED is starting to feel better. He did get clammy and sweaty. He states he does have a history of CAD and had a heart cath around 1 year ago which showed a 30% stenosis. Does have a significant family history of cardiac disease who is very concerned about this. He denies any recent illness including cough, fevers or chills. No shortness of breath. No leg swelling or calf pain. Patient denies a smoking history. [facility] Medical History (Updated 11/17/20 @ 17:[address] Walter Reyes, ) Abnormal EKG Atherosclerotic heart disease of [place] coronary artery without angina pectoris Bradycardia Chest pain Chronic back pain Excessive daytime sleepiness Eye abnormality Family history of ischemic heart disease Hyperglycemia Hyperlipemia [place] (obstructive sleep apnea) Screening for HIV (human immunodeficiency virus) Shortened VT interval Home Medications aspirin 81 mg PO DAILY@0800 tab 07/24/18 [Rx Last Taken Unknown] diltiazem HCl 120 mg capsule,extended release 24 hr 120 mg PO DAILY #90 cap 03/22/20 [Rx Last Taken Unknown] gemfibrozil 600 mg tablet 600 mg PO BID #60 tab 06/09/20 [Rx Last Taken Unknown] Allergy/AdvReac Type Severity Reaction Status Date / Time No Known Allergies Allergy Verified 11/17/20 14:56 Family History Father CAD (coronary artery disease) S/P CABG (coronary artery bypass graft) Hyperlipidemia Grandfather , in age 50's CAD (coronary artery disease) Sudden cardiac Grandmother , age 70's CAD (coronary artery disease) Uncle , ages 47-48 CAD (coronary artery disease) Sudden cardiac Grandfather CAD (coronary artery disease) Myocardial infarction Grandmother , Age late 50's early 60's unknown cause, sudden No problems noted. Son No problems noted. Mother CAD (coronary artery disease) Myocardial infarction H/O right coronary artery stent placement, Onset Age: 53 Surgical History History of left heart catheterization (07/24/18) Social History Smoking Status: Current some day smoker tobacco type: cigarettes alcohol intake: never ROS ROS ED Constitutional Constitutional ED: Denies chills or fever(s) Eyes Eyes: Denies change in vision ENT ENT ED: Denies epistaxis or rhinorrhea Cardiovascular Cardiovascular: Reports chest pain; Denies palpitations Respiratory/Chest Respiratory/Chest: Denies cough, dyspnea or dyspnea on exertion Gastrointestinal Gastrointestinal: Reports abdominal pain; Denies diarrhea, nausea or vomiting Genitourinary Genitourinary ED: Denies dysuria, hematuria or urinary frequency Musculoskeletal Musculoskeletal: Denies back pain or neck pain Integumentary Denies rash Neurologic Neurologic: Denies dizziness, headache(s) or weakness EXAM Physical Exam Const Vital Signs: 11/17/20 14:57 11/17/20 15:02 11/17/20 15:07 Temperature 98.5 F Temperature Source Oral Pulse Rate 87 Respiratory Rate 18 Respiratory Effort Short of Breath Blood Pressure Blood Pressure Mean Pulse Ox 100 100 Oxygen Delivery Method Room Air Nasal Cannula Oxygen Flow Rate (L/min) 2 11/17/20 15:56 11/17/20 17:37 Temperature Temperature Source Pulse Rate 74 71 Respiratory Rate 18 20 H Respiratory Effort Blood Pressure 141/78 H 137/88 H Blood Pressure Mean 99 Pulse Ox 100 100 Oxygen Delivery Method Oxygen Flow Rate (L/min) Positive well nourished and well developed General Appearance ED: well developed and NAD HEENT Reports normocephalic, head/scalp atraumatic and moist mucous membranes Eyes PERRL and EOMs intact bilaterally Chest Wall inspection of chest normal Resp normal respiratory effort and clear to auscultation bilaterally Auscultation: Negative for rales, rhonchi or wheezes Cardio regular rate, regular rhythm and no murmurs GI normal to inspection, nondistended, normoactive bowel sounds and non-tender Palpation: soft; Negative for guarding or rebound tenderness present Extremity normal to inspection General Extremety ED: Negative for edema or tenderness General Extremity: Negative for edema Neuro no sensory deficits noted Sensorium / Orientation: alert Motor Exam: strength 5/5 throughout Psych mental status grossly normal Skin no rashes or lesions noted Heart Score History: Slightly/Non-Suspicious ECG: Normal Age: </= 45 years Risk Factors: 1 or 2 Risk Factors Troponin: </= Normal Limit Score: 1 MDM MDM MDM Narrative Medical decision making narrative: Patient presents to the emergency department for episode of low chest/upper left side abdominal pain. Upon arrival symptoms are resolving. Upon arrival to the emerge department vital signs within normal limits. He is in no acute distress. Patient agreeable to work-up including EKG, chest x-ray basic lab work. Patient has remained asymptomatic throughout ED stay. He is antsy on getting out of the emergency department. His work-up did not reveal any acute abnormality. His troponin is well within normal limits. His potassium was mildly low. He is otherwise not anemic. Chest x-ray did not reveal any acute cardiopulmonary abnormality. This time believe he is stable for discharge. Have low concern for ACS, thromboembolism, aortic catastrophe. Return precautions are reviewed with him including any worsening symptoms. He otherwise is to follow-up with his PCP. He understands and is agreeable with this plan. Lab Data Labs: Laboratory Results - last 24 hr 11/17/20 11/17/20 15:00 15:00 WBC 11.5 H RBC 5.24 Hgb 15.8 Hct 46.6 MCV 88.9 MCH 30.2 MCHC 33.9 RDW Std Deviation 39.5 RDW Coeff of Parvin 12.1 Plt Count 351 MPV 10.1 Immature Gran % (Auto) 0.400 Neut % (Auto) 55.7 Lymph % (Auto) 33.6 [place] % (Auto) 7.8 Eos % (Auto) 2.0 Baso % (Auto) 0.5 Absolute Neuts (auto) 6.4 Absolute Lymphs (auto) 3.86 Nucleated RBC % 0 Sodium 138 Potassium 3.1 L Chloride 103 Carbon Dioxide 24.0 Anion Gap 11 BUN 14 Creatinine 1.22 Estim Creat Clear Calc 95.41 Est GFR (MDRD) Af Amer 88 Est GFR (MDRD) Non-Af 73 BUN/Creatinine Ratio 11.5 Glucose 118 H Calcium 9.6 Troponin I High Sens 6.4 Radiography Diagnostic Testing: Radiology Impression Chest X-Ray 11/17/20 15:08 IMPRESSION: Normal x-ray examination of the chest. Electronically Signed: Francesco Barone MD at 15:27 EDT , Service support , EKG Initial EKG: Attestation: I personally reviewed and interpreted this EKG as follows: (Rate of 86 bpm and normal sinus rhythm. Normal intervals. Normal axis. No significant ST elevations or depressions. No T wave abnormalities.) Discharge Plan Triage Chief Complaint: Chest Pain ED Provider: Walter Reyes Dx/Rx/DC Orders Clinical Impression: Chest pain Instructions: ED Chest Pain, Uncertain Cause Prescriptions: No Action diltiazem HCl 120 mg capsule,extended release 24hr 120 mg PO DAILY Qty: 90 RF: 3 gemfibrozil 600 mg tablet 600 mg PO BID Qty: 60 RF: 11 aspirin 81 MG tablet 81 mg PO DAILY@0800 RF: 0 Primary Care Provider: Jerrod Chase Referrals: Jerrod Chase MD [Primary Care Provider] - 2 Days Disposition Disposition: Home, Self Care Discharge Date/Time: 11/17/20 17:38
[2020-11-17 17:37] VITALS: BP 137/88; PULSE 71; RESP 20; O2SAT 100
== END 2020-11-17 17:38 | disposition home or self-care (01) ==
PROVIDERS: Emergency Provider Emergency Medicine; PCP Internal Medicine
DX: R07.9 Chest pain, unspecified (principal); F17.210 Nicotine dependence, cigarettes, uncomplicated; E78.5 Hyperlipidemia, unspecified; G47.33 Obstructive sleep apnea (adult) (pediatric); G89.29 Other chronic pain; Z82.49 Family history of ischemic heart disease and other diseases of the circulatory system; Z79.82 Long term (current) use of aspirin; I25.10 Atherosclerotic heart disease of native coronary artery without angina pectoris; M54.9 Dorsalgia, unspecified
CPT/HCPCS: 71045; 80048; 84484; 85025; 93005; 99284; A4216

== ENCOUNTER → 2021-01-02 16:26 | Outpatient (CLI) | payer MEDICAID, SELFPAY ==
[2021-01-02 17:43] LABS: AST(SGOT) 15 U/L (15-37); Alanine Aminotransfer ALT/SGPT 26 U/L (16-61); Albumin, Serum 4.2 g/dL (3.2-5.0); Alkaline Phosphatase 50 U/L (45-117); Bilirubin, Direct 0.11 mg/dL (0.00-0.30); Cholesterol 205 mg/dL (200); Globulin 3.8 g/dL (2.2-4.2); High Density Lipoprotein 36 mg/dL; Triglycerides 254 mg/dL; Very Low Density Lipoprotein 51 mg/dL (5-40)
== END ==
PROVIDERS: PCP Internal Medicine; Visit Provider Internal Medicine Cardiovascular Disease
DX: E78.00 Pure hypercholesterolemia, unspecified (principal)
CPT/HCPCS: 36415; 80061; 80076

== ENCOUNTER → 2021-02-01 16:06 | Outpatient (CLI) | payer MEDICAID, SELFPAY ==
[2021-02-01 17:30] LABS: Anion Gap 4 (5-15); BUN 22 mg/dL (7-18); BUN/Creat Ratio 17.2 RATIO (10-20); Calcium,Total 9.6 mg/dL (8.5-10.1); Chloride 106 mmol/L (98-107); Creatinine, Serum 1.28 mg/dL (0.70-1.30); EST Glomerular Filtration Rate 69 mL/min (>60); Est Glom Filt Rate - Afr Amer 83 mL/min (>60); Glucose 90 mg/dL (74-106); Potassium 3.9 mmol/L (3.5-5.1); Sodium Level 139 mmol/L (136-145); T4 Free Direct 0.91 ng/dL (0.76-1.46); Thyroid Stim Hormone (TSH) 1.57 uIU/mL (0.358-3.74)
== END ==
PROVIDERS: PCP Internal Medicine; Referring Provider Internal Medicine; Visit Provider Internal Medicine
DX: Z13.29 Encounter for screening for other suspected endocrine disorder (principal); E87.6 Hypokalemia
CPT/HCPCS: 36415; 80048; 84439; 84443

== ENCOUNTER → 2021-09-11 | Outpatient (CLI) | payer MEDICAID, SELFPAY ==
[2021-09-11 08:49] LABS: AST(SGOT) 19 U/L (15-37); Alanine Aminotransfer ALT/SGPT 29 U/L (16-61); Alkaline Phosphatase 59 U/L (45-117); Bilirubin, Direct 0.08 mg/dL (0.00-0.30); Cholesterol 207 mg/dL (200); Globulin 3.8 g/dL (2.2-4.2); High Density Lipoprotein 33 mg/dL; Protein, Total 7.8 g/dL (6.4-8.2); Triglycerides 409 mg/dL
== END | disposition home or self-care (01) ==
LOC: LAB 07:24
PROVIDERS: PCP Internal Medicine; Referring Provider Internal Medicine Cardiovascular Disease; Visit Provider Internal Medicine Cardiovascular Disease
DX: E78.00 Pure hypercholesterolemia, unspecified (principal); E78.5 Hyperlipidemia, unspecified
CPT/HCPCS: 36415; 80061; 80076

== ENCOUNTER → 2022-08-24 | Outpatient (CLI) | payer MEDICAID, SELFPAY ==
[2022-08-24 08:40] LABS: AST(SGOT) 21 U/L (15-37); Alanine Aminotransfer ALT/SGPT 30 U/L (16-61); Albumin, Serum 3.8 g/dL (3.2-5.0); Alkaline Phosphatase 44 U/L (45-117); Bilirubin, Direct 0.12 mg/dL (0.00-0.30); Cholesterol 166 mg/dL (200); Globulin 3.5 g/dL (2.2-4.2); High Density Lipoprotein 36 mg/dL; Protein, Total 7.3 g/dL (6.4-8.2); Triglycerides 227 mg/dL; Very Low Density Lipoprotein 45 mg/dL (5-40)
== END | disposition home or self-care (01) ==
LOC: LAB 07:06
PROVIDERS: PCP Internal Medicine; Referring Provider Nurse Practitioner Family; Visit Provider Nurse Practitioner Family
DX: E78.5 Hyperlipidemia, unspecified (principal)
CPT/HCPCS: 36415; 80061; 80076

== ENCOUNTER 2023-02-28 13:30 | Outpatient (RCR) | payer MEDICAID, SELFPAY ==
--- NOTE | 2023-01-22 11:37 | HP.PTEVAL ---
Patient's Visit Information Visit Information Visit Information: BRITTNEY MENDOZA is a 33 year old M referred to Physical Therapy by Dr. Jerrod Chase MD with a diagnosis of R SHLD PAIN AND LUMBAR RADICULOPATHY. Date of Evaluation: 01/10/23 Physical Therapist: Heidi Angelo PT, Cert MDT Visit Plan Frequency: 2-3x /Week Duration: 4-6 Months Plan: *CHECK AUTH NEXT VISIT: RECORD # OF VISITS APPROVED AND EXPIRATION DATE. CHECK CODES APPROVED WITH POC* R SHLD US X 6-8 TREATMENTS. POSTURE CORRECTION/STRENGTHENING, INSTRUCTION IN APPROPRIATE BODY MECHANICS AND ACTIVITY MODIFICATIONS. R UE ROM, STRETCHING AND STRENGTHENING. HEP INSTRUCTION. LUMBAR ASSESSMENT. Subjective Subjective: Work/Leisure: [employer]. Present symptoms: INTERMITTENT R SHLD PAIN. PATIENT DENIES R UE RADIATING PAIN, NUMBNESS OR TINGLING DOWN THE R UE INTO THE HAND OR FINGERS. NO L UE SX'S. NO NECK PAIN. Present since: ABOUT A MONTH AGO. Pain Scale: WORST 8/10, LEAST 0/10 Currently: 0/10 Is it getting better, worse or staying the same: STAYING THE SAME OR GETTING WORSE. Commenced as a result of: WOKE UP WITH THE PAIN Symptoms at onset: PAIN IN R SHLD JOINT Worse: LIFTING R ARM UP AND OUT ESPECIALLY IF ROTATING ARM UP. LYING ON R SIDE WITH HAND UNDER HEAD. CAN'T CLIMB LADDER AND AVOIDING ANYTHING ELSE THAT INVOLVES RAISING ARM. Better: NOT LIFTING IT. THE PAIN IS FLEETING AND STOPS WHEN HE STOPS REACHING. Disturbed sleep: YES Previous history/Previous treatment: UNREMARKABLE Treatment this episode: NONE Accidents: NO Unexplained weight loss: NO Imaging: NO PMH/Recent major surgery: SLEEP APNEA. OTHER: PATIENT REPORTS HE ALSO HAS CHRONIC LUMBAR RADICULOPATHY BUT HIS R SHLD PAIN IS HIS CHIEF CONCERN TODAY (NO BACK SURGERY). Objective Objective: Sitting Posture/Standing Posture: FAIR. MILD FH AND RSH'S. Active Correction of posture: NE Other Observations: INDEP GAIT AND TRANSFERS. Sensory deficit: TEMO UE LIGHT TOUCH SENSATION GROSSLY INTACT AND SYMMETRICAL ROM deficit: L UE: WNL. R UE: STANDING R SHLD FLEX FULL WITH PAINFUL ARC FROM 90 TO 180 DEG. ABD - 110 DEG. SUPINE ER TO 50 DEG AND IR TO 65 DEG WITH 60 DEG ABD WITH ERP AND PAIN DURING LAST 10 TO 20 DEG OF MVMT. Motor deficit: R SHLD FLEX 3/5, ABD 2+/5, IR 3-/5, ER 2/5, ELBOW 4/5 HEEL EDGE INKER MACHINE 90 LBS (R HAND DOMINANT). L UE WFL WITH L HEEL EDGE INKER MACHINE 95 LBS. SPECIAL TESTS: POSITIVE R UE EMPTY CAN, DROP ARM, INFRASPNATUS AND LAG SIGN TESTS. Dural Signs: NEGATIVE TEMO UE'S. Cervical Mvmt Loss: Flex: NIL Pro: NIL Ext: NIL Ret: NIL RSB: NIL LSB: NIL R Rot: NIL L Rot: NIL Postural strength: FAIR TREATMENT: HOME INSTRUCTIONS GIVEN FOR TABLE WALK AWAYS FOR GENTLE PASSIVE R SHLD FLEXION IN PAINFREE ROM TO HELP MAINTAIN ROM AND SUBMAX ISO R SHLD IR AND ER X 3 TO 5 SEC EA WITH ELBOW AT SIDE X 5-10 REPS EVERY COUPLE HRS TOLERATED WITHOUT INCREASING PAIN. PATIENT DEMO'D GOOD TECHNIQUE AND TOLERANCE TO THESE EX'S IN CLINIC TODAY. Balance/Special Test Scores Quick DASH Score: 45.4525 Goals Goal 1:: DECREASE C/O R SHLD PAIN Goal Time Frame: 4-6 Weeks Goal 2:: INCREASE PAINFREE FUNCTIONAL ROM OF R SHLD TO EASE ADL'S. Goal Time Frame: 4-6 Weeks Goal 3:: IMPROVE PAINFREE FUNCTIONAL STRENGTH OF R SHLD TO PROGRESS TOWARD RETURN TO PRIOR LEVEL OF FUNCTION Goal Time Frame: 4-6 Weeks Goal 4:: PATIENT WILL BE INDEP WITH A HEP FOR CONTINUED IMPROVEMENT ONCE FORMAL PHYSICAL THERAPY CONCLUDES. Goal Time Frame: 4-6 Weeks Anticipated Interventions Patient/Client Instruction: Educate patient on: Condition, Plan of Care and Risk Factors For the Purpose of:: To improve self management Therapeutic Exercise to Include: Strength training, Body mechanics, Postural training, Flexibilty training, Neuromotor development, In an aquatic setting and Scapular Strength/Stabilization For the Purpose of:: To decrease pain, To increase ROM, To improve muscle performance and motor function, To increase tolerance to activity/condition/position and To improve ability of physical actions for home/community/work/leisure Manual Therapy Techniques to Include: Mobilization Comment: R SHLD For the Purpose of:: To decrease pain, To increase ROM and To improve nutrient delivery to tissue Ultrasound (thermal/non thermal): Yes For the Purpose of:: To decrease pain and To improve nutrient delivery to tissue Text: Thank you for the opportunity to evaluate your patient. For Medicare and Medicare HMO plans, please review the plan of care and approve it. It will need to be FAXED BACK to us at [phone] for Medicare purposes. For Medicare only, by signing this I certify the plan of care. Please let me know if there are questions or concerns regarding this plan of care. Physician Signature: Date:
--- NOTE | 2023-04-29 11:03 | HP.PTDCNRP_ITS ---
Patient Information Patient Information: BRITTNEY MENDOZA was seen in my office for initial evaluation on 01/10/23. The following Plan of Care was established for this patient: POC Established Initial Frequency: 2-3x /Week Initial Duration: 4-6 Months Anticipated Interventions Patient/Client Instruction: Educate patient on: Condition, Plan of Care and Risk Factors For the Purpose of:: To decrease swelling/inflammation and To improve self management Therapeutic Exercise to Include: Strength training, Body mechanics, Postural training, Flexibilty training, Neuromotor development, In an aquatic setting and Scapular Strength/Stabilization For the Purpose of:: To decrease pain, To increase ROM, To improve muscle pe rformance and motor function, To increase tolerance to activity/condition/position and To improve ability of physical actions for home/community/work/leisure Manual Therapy Techniques to Include: Mobilization Comment: R SHLD For the Purpose of:: To decrease pain, To increase ROM and To improve nutrient delivery to tissue Ultrasound (thermal/non thermal): Yes For the Purpose of:: To decrease pain and To improve nutrient delivery to tissue Last Seen Last Seen: This patient was last seen in our office 02/28/23. Pertinent comments regarding their Physical therapy will appear below: This patient has not returned to Physical Therapy and is appropriate to return to MD for further follow-up as needed. At this point I will be discontinuing this patient from physical therapy. I would be happy to see this patient again in the future if found appropriate by the physician. Thank you! Heidi Angelo, PT, Cert MDT Balance/Gait/Functional tests Balance/Special Test Scores Quick DASH Score: 45.4547
== END 2023-02-28 19:00 | disposition home or self-care (01) ==
LOC: PT 13:30
PROVIDERS: PCP Internal Medicine; Referring Provider Internal Medicine; Visit Provider Internal Medicine
DX: M25.511 Pain in right shoulder (principal); M54.16 Radiculopathy, lumbar region
CPT/HCPCS: 97035; 97110; 97162; 97530

== ENCOUNTER → 2025-01-12 | Outpatient (CLI) | payer MEDICAID, SELFPAY ==
[2025-01-12 17:37] LABS: Cholesterol 211 mg/dL (<=200); Low Density Lipoprotein Calc. 126 mg/dL; Triglycerides 211 mg/dL; Very Low Density Lipoprotein 42 mg/dL (5-40); cholesterol:hdl ratio screen 4.98
[2025-01-12 17:38] LABS: Anion Gap 13 (5-15); BUN 13 mg/dL (4-19); BUN/Creat Ratio 11.5 RATIO (10-20); Calcium,Total 10.6 mg/dL (7.6-11.0); Carbon Dioxide 25.3 mmol/L (21.0-32.0); Chloride 101 mmol/L (98-108); Glucose 79 mg/dL (70-99); Potassium 4.2 mmol/L (3.3-5.1)
--- OUTSIDE RECORDS SUMMARY | 2025-01-12 18:59 | XMS RPT_ITS | CCD ---
Author Organization [facility] Inform ion Partnership [facility] Care Team Providers Care Auto Roller Name Role Phone Dr. Jerrod Chase Primary Care Provider [phone] Dr. Jerrod Chase Referring Provider [phone] Roof FIELD CROP HAR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, ROSI Dave Attending Provider Oleghe, Efewongbe Attending Unavailable Oleghe, Efewongbe Primary Care Unavailable Oleghe, Efewongbe Referring Unavailable Oleghe, Efewongbe Attending Unavailable Oleghe, Efewongbe Primary Care Unavailable Oleghe, Efewongbe Referring Unavailable Oleghe, Efewongbe Primary Care Unavailable Roof FIELD CROP HAR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Vel Referring Unavailable Roof FIELD CROP HAR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, Vel Dave Attending Unavailable Oleghe, Efewongbe Primary Care Unavailable Roof FIELD CROP HAR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Vel Attending Unavailable Oleghe, Efewongbe Referring Unavailable Unavailable Primary Care Provider Unavailabl e SELF, SELF Referring Unavailable Medications Current Medications Medication Drug Class(es) Dates Sig (Normalized) Sig (Original) aspirin 81 mg delayed release oral tablet (4 sources) Platelet Aggregation Inhibitor, Nonsteroidal Anti-inflammatory Drug Start: 07-24-2018 End: 03-06-2023 take 81 mg by mouth once daily Aspirin Active 81 MG PO DAILY 180 180 March 06, 2023 10:10am gemfibrozil 600 mg oral tablet (20 sources) Peroxisome Proliferator Receptor alpha Agonist Start: 06-09-2020 End: 03-06-2023 take 600 mg by mouth twice daily Gemfibrozil Active 600 MG PO TWICE A DAY 360 180 March 06, 2023 4:08pm Start: 07-09-2018 End: 03-22-2020 take 600 mg by mouth twice daily Gemfibrozil Discontinued 600 MG PO TWICE A DAY 180 September 07, 2018 10:31am May 24, 2019 11:46am Completed/Discontinued Medications Medication Drug Class(es) Dates Sig (Normalized) Sig (Original) atorvastatin 20 mg oral tablet (3 sources) HMG-CoA Reductase Inhibitor Start: 03-24-2020 End: 06-09-2020 take 20 mg by mouth at bedtime Atorvastatin Discontinued 20 MG PO AT BEDTIME March 24, 2020 1:00am June 09, 2020 10:38am 24 hr dilTIAZem hydrochloride 120 mg extended release oral capsule (20 sources) Calcium Channel Prisca Start: 07-24-2018 End: 03-06-2023 take 120 mg by mouth once daily Diltiazem Hcl Discontinued 120 MG PO DAILY 180 180 March 06, 2023 10:11am March 06, 2023 4:09pm Flucelvax Quad (flu vac qs (6 ms up) CD) 60 mcg (15 mcg x (1 source) Start: 02-01-2021 End: 02-01-2021 inject 15 ug by intramuscular injection once Flucelvax Quad (flu vac qs (6 ms up) CD) 60 mcg (15 mcg x Discontinued 60 MCG IM ONCE 0.5 February 01, 2021 3:45pm February 01, 2021 4:17pm hydrOXYzine hydrochloride 25 mg oral tablet (6 sources) Antihistamine Start: 03-22-2021 End: 09-07-2021 take 25 mg by mouth three times daily Hydroxyzine Hcl Discontinued 25 MG PO THREE TIMES A DAY April 11, 2021 7:03pm September 07, 2021 3:29pm meloxicam 15 mg oral tablet (2 sources) Nonsteroidal Anti-inflammatory Drug Start: 09-21-2021 End: 08-23-2022 take 15 mg by mouth once daily Meloxicam Discontinued 15 MG PO DAILY September 21, 2021 12:00am August 23, 2022 3:49pm 24 hr nicotine 0.875 mg/hr transdermal system (3 sources) Cholinergic Nicotinic Agonist Start: 04-11-2021 End: 09-07-2021 apply 1 dose transdermal route every twenty-four hours Nicotine Discontinued 1 PATCH TD Q24H April 11, 2021 1:00am September 07, 2021 3:29pm traZODone hydrochloride 50 mg oral tablet (6 sources) Serotonin Reuptake Inhibitor Start: 03-22-2021 End: 09-07-2021 take 50 mg by mouth at bedtime Trazodone Discontinued 50 MG PO AT BEDTIME April 11, 2021 7:15pm September 07, 2021 3:30pm 24 hr venlafaxine 150 mg extended release oral capsule (6 sources) Serotonin and Norepinephrine Reuptake Inhibitor Start: 04-11-2021 End: 09-07-2021 take 150 mg by mouth once daily Venlafaxine Discontinued 150 MG PO DAILY 60 April 11, 2021 7:02pm September 07, 2021 3:30pm Start: 03-22-2021 End: 04-11-2021 Venlafaxine Discontinued 37. 5 MG PO DAILY March 22, 2021 1:00am April 11, 2021 7:04pm Take 1 cap daily x 1 week then increase to 2 tablets Problems Active Problems Problem Classification Problem Date Documented Date Episodic/Chronic Anxiety disorders (6 sources) Generalized anxiety disorder; Translations: [Generalized anxiety disorder] 03-22-2021 Chronic Coronary atherosclerosis and other heart disease (5 sources) Coronary atherosclerosis; Translations: [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] Chronic Diabetes mellitus without complication (3 sources) Hyperglycemia; Translations: [Hyperglycemia, unspecified] 11-03-2020 Episodic Disorders of lipid metabolism (6 sources) Hyperlipidemia; Translations: [Hyperlipidemia, unspecified] Onset: 3 Chronic Fluid and electrolyte disorders (3 sources) Hypokalemia; Translations: [Hypokalemia] 02-01-2021 Episodic Immunizations and screening for infectious disease (6 sources) Needs influenza immunization; Translations: [Encounter for immunization] 02-01-2021 Episodic Nonspecific chest pain (3 sources) Chest pain; Translations: [Chest pain, unspecified] 11-17-2020 Episodic Other congenital anomalies (3 sources) Congenital anomaly of eye; 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, unspecified] 11-03-2020 Chronic Other connective tissue disease (1 source) Musculoskeletal pain; Translations: [Myalgia, other site] 10-13-2023 Episodic Other connective tissue disease (2 sources) Myalgia, other site; Translations: [Myalgia, other site] Onset: 4 Episodic Other lower respiratory disease (3 sources) Dyspnea on exertion; Translations: [Shortness of breath] 07-28-2018 Episodic Other non-traumatic joint disorders (2 sources) Pain in right shoulder; Translations: [Right shoulder pain] Onset: 4 01-03-2023 Episodic Other nutritional; endocrine; and metabolic disorders (3 sources) Body mass index 30+ - obesity; Translations: [Body mass index (BMI) 31.0-31.9, adult] 05-27-2019 Chronic Other screening for suspected conditions (not mental disorders or infectious disease) (9 sources) Electrocardiogram abnormal; Translations: [Abnormal electrocardiogram [ECG] [EKG]] 01-11-2020 Episodic Residual codes; unclassified (3 sources) Obstructive sleep apnea syndrome; Translations: [Obstructive sleep apnea (adult) (pediatric)] 09-08-2019 Chronic Residual codes; unclassified (3 sources) Daytime somnolence; Translations: [Other hypersomnia] 01-11-2020 Chronic Residual codes; unclassified (3 sources) Insomnia; Translations: [Insomnia, unspecified] 03-22-2021 Episodic Residual codes; unclassified (3 sources) Family history of ischemic heart disease; Translations: [Family history of ischemic heart disease and other diseases of the circulatory system] 07-23-2018 Episodic Spondylosis; intervertebral disc disorders; other back problems (6 sources) Chronic back pain ; Translations: [Dorsalgia, unspecified] Onset: 4 09-21-2021 Episodic Past or Other Problems Problem Classification Problem Date Documented Date Episodic/Chronic Cardiac dysrhythmias (11 sources) Palpitations; Translations: [Palpitations] Onset: 08-23-2022 Episodic Residual codes; unclassified (3 sources) History of cardiac catheterization; Translations: [Other specified postprocedural states] Onset: 07-24-2018 07-24-2018 Episodic Results Test Name Value Interpretation Reference Range Facility Inital Evaluation (1) - PTon 01-22-2023 Inital Evaluation (1) - PT [facility] Physical [facility] [address] [place] [address]. [address] [place] [address] / REHABILITATION SERVICES INITIAL EVALUATION MR#: [id number] Acct: [id number] Name: RICK MENDOZA Rep #: [id number] : 1990 33 From: Heidi Angelo PT, Cert. MDT Referring Dr.: Dr. Jerrod Chase MD Status: REG [facility] Insurance: [facility] SELF PAY INSURANCE Patient's Visit Information Visit Information Visit Information: RICK MENDOZA is a 33 year old M referred to Physical Therapy by Dr. Jerrod Chase MD with a diagnosis of R SHLD PAIN AND LUMBAR RADICULOPATHY. Date of Evaluation: 01/10/23 Physical Therapist: Heidi Angelo, PT, Cert MDT Visit Plan Frequency: 2-3x /Week Duration: 4-6 Months Plan: *CHECK AUTH NEXT VISIT: RECORD # OF VISITS APPROVED AND EXPIRATION DATE. CHECK CODES APPROVED WITH POC* R SHLD US X 6-8 TREATMENTS. POSTURE CORRECTION/STRENGTHENING , INSTRUCTION IN APPROPRIATE BODY MECHANICS AND ACTIVITY MODIFICATIONS. R UE ROM, STRETCHING AND STRENGTHENING. HEP INSTRUCTION. LUMBAR ASSESSMENT. 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 Present symptoms: INTERMITTENT R SHLD PAIN. PATIENT DENIES R UE RADIATING PAIN, NUMBNESS OR TINGLING DOWN THE R UE INTO THE HAND OR FINGERS. NO L UE SX'S. NO NECK PAIN. Present since: ABOUT A MONTH AGO. Pain Scale: WORST 8/10, LEAST 0/10 Currently: 0/10 Is it getting better, worse or staying the same: STAYING THE SAME OR GETTING WORSE. Commenced as a result of: WOKE UP WITH THE PAIN Symptoms at onset: PAIN IN R SHLD JOINT Worse: LIFTING R ARM UP AND OUT ESPECIALLY IF ROTATING ARM UP. LYING ON R SIDE WITH HAND UNDER HEAD. CAN'T CLIMB LADDER AND AVOIDING ANYTHING ELSE THAT INVOLVES RAISING ARM. Better: NOT LIFTING IT. THE PAIN IS FLEETING AND STOPS WHEN HE STOPS REACHING. Disturbed sleep: YES Previous history/Previous treatment: UNREMARKABLE Treatment this episode: NONE Accidents: NO Unexplained weight loss: NO Imaging: NO PMH/Recent major surgery: SLEEP APNEA. OTHER: PATIENT REPORTS HE ALSO HAS CHRONIC LUMBAR RADICULOPATHY BUT HIS R SHLD PAIN IS HIS CHIEF CONCERN TODAY (NO BACK SURGERY). Objective Objective: Sitting Posture/Standing Posture: FAIR. MILD FH AND RSH'S. Active Correction of posture: NE Other Observations: INDEP GAIT AND TRANSFERS. Sensory deficit: TEMO UE LIGHT TOUCH SENSATION GROSSLY INTACT AND SYMMETRICAL ROM deficit: L UE: WNL. R UE: STANDING R SHLD FLEX FULL WITH PAINFUL ARC FROM 90 TO 180 DEG. ABD - 110 DEG. SUPINE ER TO 50 DEG AND IR TO 65 DEG WITH 60 DEG ABD WITH ERP AND PAIN DURING LAST 10 TO 20 DEG OF MVMT. Motor deficit: R SHLD FLEX 3/5, ABD 2+/5, IR 3-/5, ER 2/5, ELBOW 4/5 AUTO PARTS SALESPERSON 90 LBS (R HAND DOMINANT). L UE WFL WITH L AUTO PARTS SALESPERSON 95 LBS. SPECIAL TESTS: POSITIVE R UE EMPTY CAN, DROP ARM, INFRASPNATUS AND LAG SIGN TESTS. Dural Signs: NEGATIVE TEMO UE'S. Cervical Mvmt Loss: Flex: NIL Pro: NIL Ext: NIL Ret: NIL RSB: NIL LSB: NIL R Rot: NIL L Rot: NIL Postural strength: FAIR TREATMENT: HOME INSTRUCTIONS GIVEN FOR TABLE WALK AWAYS FOR GENTLE PASSIVE R SHLD FLEXION IN PAINFREE ROM TO HELP MAINTAIN ROM AND SUBMAX ISO R SHLD IR AND ER X 3 TO 5 SEC EA WITH ELBOW AT SIDE X 5-10 REPS EVERY COUPLE HRS TOLERATED WITHOUT INCREASING PAIN. PATIENT DEMO'D GOOD TECHNIQUE AND TOLERANCE TO THESE EX'S IN CLINIC TODAY. Balance/Special Test Scores Quick DASH Score: 45.4525 Goals Goal 1:: DECREASE C/O R SHLD PAIN Goal Time Frame: 4-6 Weeks Goal 2:: INCREASE PAINFREE FUNCTIONAL ROM OF R SHLD TO EASE ADL'S. Goal Time Frame: 4-6 Weeks Goal 3:: IMPROVE PAINFREE FUNCTIONAL STRENGTH OF R SHLD TO PROGRESS TOWARD RETURN TO PRIOR LEVEL OF FUNCTION Goal Time Frame: 4-6 Weeks Goal 4:: PATIENT WILL BE INDEP WITH A HEP FOR CONTINUED IMPROVEMENT ONCE FORMAL PHYSICAL THERAPY CONCLUDES. Goal Time Frame: 4-6 Weeks Anticipated Interventions Patient/Client Instruction: Educate patient on: Condition, Plan of Care and Risk Factors For the Purpose of:: To improve self management Therapeutic Exercise to Include: Strength training, Body mechanics, Postural training, Flexibilty training, Neuromotor development, "In an aquatic setting" and Scapular Strength/Stabilization For the Purpose of:: To decrease pain, To increase ROM, To improve muscle performance and motor function, To increase tolerance to activity/condition/posit ion and To improve ability of physical actions for home/community/work/leis ure Manual Therapy Techniques to Include: Mobilization Comment: Izabella KANG For the Purpose of:: To decrease pain, To increase ROM and To improve nutrient delivery to tissue Ultrasound (thermal/non thermal): Yes For the Purpose of:: To decrease pain and To improve nutrient delivery to tissue Text: Thank you for the opportunity to evaluate your patient. For Medicare and Medicare HMO (more content not included)... Normal [facility] Internal Medicine Office Vis iton 01-03-2023 Internal Medicine Office Visit [facility] [address] [place] [address] [place] [address] OFFICE VISIT Date of Service: 01/03/23 MR#: [id number] Acct: [id number] Name: RICK MENDOZA Rep #: [id number] : 1990 Provider: Dr. Jerrod lazcano MD Age/Sex: 32/M Location: [facility] Status: Signed Intake Vital Signs 08/23/22 13:32 01/03/23 10:05 Height 6 ft 6 ft Weight: 224 lb BMI 30.4 BP 110/74 Blood Pressure Location Lt brachial Position Sitting Respiration 16 Pulse 69 Pulse Source Monitor Temp 98.2 F Temp Source Temporal Pulse Oximetry (%) 96 Oxygen Delivery Method room air Intake Visit Reasons: SHOULDER PROBLEMS Chief Complaint: SHOULDER PROBLEMS Is patient in pain?: Yes (RIGHT SHOULDER) Pain scale (1-10): 8 Allergies No Known Allergies Allergy (Verified 01/03/23 10:03) Medications aspirin 81 mg tablet,delayed release 81 mg PO DAILY@0800 07/24/18 [Rx Confirmed 01/03/23] gemfibrozil 600 mg tablet 600 mg PO BID #180 tabs 07/09/22 [Rx Confirmed 01/03/23] diltiazem HCl 120 mg capsule,extended release 24 hr 120 mg PO DAILY 90 days #90 caps 07/30/22 [Rx Confirmed 01/03/23] [facility] Medical History (Updated 01/03/23 @ 13:[address] Jerrod Chase MD) Abnormal EKG Anxiety and depression 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 Bradycardia Chest pain Chronic back pain COVID-19 Excessive daytime sleepiness Eye abnormality Family history of ischemic heart disease Flu vaccine need Generalized anxiety disorder with panic attacks Hyperglycemia Hyperlipemia Hypokalemia Insomnia Lumbar radiculopathy TATIANA (obstructive sleep apnea) Palpitations Right shoulder pain Screening for HIV (human immunodeficiency virus) Screening for thyroid disorder Shortened AL interval Surgical History History of left heart catheterization (07/24/18) Family History Father CAD (coronary artery disease) S/P CABG (coronary artery bypass graft) Hyperlipidemia Grandfather , in age 50's CAD (coronary artery disease) Sudden cardiac Grandmother , age 70's CAD (coronary artery disease) Uncle , ages 47-48 CAD (coronary artery disease) Sudden cardiac Grandfather CAD (coronary artery disease) Myocardial infarction Grandmother , Age late 50's early 60's unknown cause, sudden No problems noted. Son No problems noted. Mother CAD (coronary artery disease) Myocardial infarction H/O right coronary artery stent placement, Onset Age: 53 Social History Smoking Status: Former smoker how long ago did patient quit smokin months ago alcohol intake: never substance use type: does not use caffeine: No HPI HPI Chief Complaint: SHOULDER PROBLEMS Details: RICK MENDOZA, is a 32 M who presents to the office today to discuss some concerns. He reports right shoulder pain which has been ongoing for months and progressively worsening. Worse with certain movements. No known injury or precipitating factor. No prior/similar history in the past. No numbness or tingling down his extremity. Other chronic medical conditions are largely stable. ROS Const Constitutional: No body ache, chills, excessive sweating, fatigue, fever(s), frequent falls, headache(s), snoring, weakness, sleep problems or change in appetite Eyes Eyes: No blurry vision, change in vision, bulging eyes, floaters or Light sensitivity ENT ENT: No abnormal hearing, ear or mastoid pain, tinnitus, balance problems, nosebleed/epistaxis, nasal congestion, nasal discharge, headache(s), neck pain or sore throat Resp Respiratory: No cough, excessive phlegm production, pain on inspiration, shortness of breath, snoring or wheezing Cardio Cardiology: No chest pain at rest, chest pain with exertion, excessive sweating, shortness of breath, dyspnea on exertion, lightheadedness, orthopnea or palpitations Gastro GI: No abdominal pain, change in bowel habits, constipation, cramping, diarrhea, incontinent of stools or nausea/dyspepsia Genitourinary Male: No burning urination, painful urination, urinary incontinence or urinary frequency Musc Musculoskeletal: Positive for joint pain (RIGHT SHOULDER PAIN X1 MONTH; DECREASED ROM) and limited range of motion; No abnormal gait, back pain, muscle cramps, muscle weakness, neck pain or numbness Skin Skin: No dry skin, redness, lesions, itchy eyes, rash or wounds Neuro Neurology: No abnormal gait, abnormal hearing, weakness, frequent falls, headache(s), memory loss or numbness Psych Psychiatric: No anxiety, No change in appetite, No depression, No memory loss, No panic attacks (more content not included)... Normal [facility] Basophil percentageOrdered B y: Vel Joseph on 08-24-2022 Bilirubin [Mass/Vol] 0.60 mg/dL 0.20-1.00 [facility] Comment on above: For patients on eltr ombopag therapy, use of Dimension [place] TBIL is not recommended. Cholesterol [Mass/Vol] 166 mg/dL <200 [facility] Comment on above: <200 mg/dL Desirable 200-240 mg/dL Borderline >240 mg/dL High Risk Protein [Mass/Vol] 7.3 g/dL 6.4-8.2 [facility] Triglyceride [Mass/Vol] 227 mg/dL <199 [facility] Comment on above: The drugs N-Acetylcy steine and Metamizole may falsely depress this assay.Serum Triglycerides Reference Interval Normal <150 mg/dL Borderline high 150 - 199 mg/dL High 200 - 499 mg/dL Very High > or = 500 mg/dL Direct bilirubinOrdered By: Vel Joseph on 08-24-2022 Bilirubin.direct [Mass/Vol] 0.12 mg/dL 0.00-0.30 [facility] Laboratory - Chemistry and C hemistry - challengeOrdered By: Vel Joseph on 08-24-2022 ALP [Catalytic activity/Vol] 44 U/L 45-117 [facility] ALT [Catalytic activity/Vol] 30 U/L 16-61 [facility] Globulin (S) [Mass/Vol] 3.5 g/dL 2.2-4.2 [facility] Lipid Profileon 08-24-2022 Cholesterol [Mass/Vol] 166 mg/dL Normal 200 [facility] Comment on above: Result Comment: <200 mg/dL Desirable 200-240 mg/dL Borderline >240 mg/dL High Risk Performed By: #### L 500.4100, L500.3400 #### [facility] [address] [place], [address] Cholesterol in HDL [Mass/Vol] 36 mg/dL Low [facility] Comment on above: Result Comment: The drugs N-Acetylcysteine and Metamizole may falsely depress this assay. Reference Range HDL <40 mg/dL Low HDL Cholesterol HDL >or= 60 mg/dL High HDL Cholesterol Performed By: #### L 500.4100, L500.3400 #### [facility] [address] [place], [address] Cholesterol in LDL [Mass/Vol] 85 mg/dL Normal 0-130 [facility] Comment on above: Performed By: #### L 500.4100, [id number] #### [facility] [address] [place], [address] Cholesterol in VLDL [Mass/Vol] 45 mg/dL High 5-40 [facility] Comment on above: Performed By: #### L 500.4100, [id number] #### [facility] [address] [place], [address] Triglyceride [Mass/Vol] 227 mg/dL High [facility] Comment on above: Result Comment: The drugs N-Acetylcysteine and Metamizole may falsely depress this assay. Serum Triglycerides Reference Interval Normal <150 mg/dL Borderline high 150 - 199 mg/dL High 200 - 499 mg/dL Very High > or = 500 mg/dL Performed By: #### L 500.4100, [id number] #### [facility] [address] [place], [address] Liver Profileon 08-24-2022 Albumin [Mass/Vol] 3.8 g/dL Normal 3.2-5.0 [facility] Comment on above: Performed By: #### L 500.4100, [id number] #### [facility] [address] [place], [address] ALK P 44 U/L Low 45-117 [facility] Comment on above: Performed By: #### L 500.4100, [id number] #### [facility] [address] [place], [address] ALT [Catalytic activity/Vol] 30 U/L Normal 16-61 [facility] Comment on above: Performed By: #### L 500.4100, [id number] #### [facility] [address] [place], [address] AST [Catalytic activity/Vol] 21 U/L Normal 15-37 [facility] Comment on above: Performed By: #### L 500.4100, [id number] #### [facility] [address] [place], [address] Bilirubin [Mass/Vol] 0.60 mg/dL Normal 0.20-1.00 [facility] Comment on above: Result Comment: For patients on eltrombopag therapy, use of Dimension [place] TBIL is not recommended. Performed By: #### L 500.4100, [id number] #### [facility] [address] [place], [address] Bilirubin.direct [Mass/Vol] 0.12 mg/dL Normal 0.00-0.30 [facility] Comment on above: Performed By: #### L 500.4100, [id number] #### [facility] [address] [place], [address] Globulin (S) [Mass/Vol] 3.5 g/dL Normal 2.2-4.2 [facility] Comment on above: Performed By: #### L 500.4100, [id number] #### [facility] [address] [place], [address] T PROT 7.3 g/dL Normal 6.4-8.2 [facility] Comment on above: Performed By: #### L 500.4100, [id number] #### [facility] [address] [place], [address] Serum or plasma albumin kevin urement (mass/volume)Ordered By: Vel Joseph on 08-24-2022 Albumin [Mass/Vol] 3.8 g/dL 3.2-5.0 [facility] Serum or plasma cholesterol in HDL measurement (mass/volume)Ordered By: Vel Joseph on 08-24-2022 Cholesterol in HDL [Mass/Vol] 36 mg/dL >40 [facility] Comment on above: The drugs N-Acetylcy steine and Metamizole may falsely depress this assay. Reference Range HDL <40 mg/dL Low HDL Cholesterol HDL >or= 60 mg/dL High HDL Cholesterol Serum or plasma cholesterol in VLDL measurement (mass/volume)Ordered By: Vel Joseph on 08-24-2022 Cholesterol in VLDL [Mass/Vol] 45 mg/dL 5-40 [facility] Serum or plasma low density lipoprotein (LDL) cholesterol measurement (mass/volume)Ordered By: Vel Joseph on 08-24-2022 Cholesterol in LDL [Mass/Vol] 85 mg/dL 0-130 [facility] Thin prep Papanicolaou smear with manual screeningOrdered By: Vel Joseph on 08-24-2022 Thin prep Papanicolaou smear with manual screening 21 U/L 15-37 [facility] 12 Lead EKG performed by [facility] on 08-23-2022 12 Lead EKG performed by [facility] [address] [place] [address] 12 Lead EKG performed by [facility] 08/23/22 1551 MR#: [id number] Acct: [id number] Name: RICK MENDOZA Rep #: [id number] : 1990 32 From: Vel ARANDA Attending Dr: ROSI Morel Status: DEP AMB Ordering Dr: Vel Joseph NP Date: 08/23/22 Location: [facility] [place] Sex: M UTD Admitted: BMS/12 Lead EKG performed by [facility] ECG Report Interpretation --Sinus Bradycardia WITHIN NORMAL LIMITSElectronically signed on 08/28/2022 at 09:35 by Redd Sween[employer] Version [id number] 08/28/22 0942 Date Vel Joseph NP 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 CC: Dr. Jerrod Chase MD Date Dictated: 08/23/22 155 Date Transcribed: 08/23/221550 Bill Checker: KIA Signed Normal [facility] Cardiology Visit Reporton Cardiology Visit Report [facility] [address] [place] [address]. [address] [place] [address] OFFICE VISIT Date of Service: 08/23/22 MR#: [id number] Acct: [id number] Name: RICK MENDOZA Rep #: [id number] : 1990 Provider: ROSI hinojosa Age/Sex: 32/M Location: [facility] [place] Status: Signed HPI HPI History of Present Illness Details: This is a 89-bqzx-wjsw-old male who presents today for an outpatient cardiovascular follow-up of a history of underlying CAD (nonangiographically significant/nonobstructi ve), hyperlipidemia, palpitations, bradycardia, superimposed upon obstructive sleep apnea. He denies chest, arm, jaw, or neck discomfort. He denies palpitations. He denies bilateral lower extremity edema. He denies claudication. He denies shortness of breath with activity, shortness of breath at rest, orthopnea, or PND. He denies chronic cough. He denies significant, sudden weight gain. He denies lightheadedness, dizziness, near-syncope, or syncope. He denies blood in urine, blood in stool, or epistaxis. He denies fever with chills. He denies myalgia. He denies fatigue. His exercise level has remained stable. Intake Vital Signs 07/10/22 12:33 08/23/22 13:32 08/23/22 15:50 Height 6 ft 6 ft Weight: 217 lb BP 110/70 Blood Pressure Location Lt brachial Position Sitting Respiration 16 Pulse 68 Pulse Source Monitor Intake Visit Reasons: F/U *NEEDS FRIDAY Scanner Operator Required: No Accompanied by: None Is patient in pain?: No Allergies No Known Allergies Allergy (Verified 08/23/22 15:48) Medications aspirin 81 mg tablet,delayed release 81 mg PO DAILY@0800 07/24/18 [Rx Confirmed 08/23/22] gemfibrozil 600 mg tablet 600 mg PO BID #180 tabs 07/09/22 [Rx Confirmed 08/23/22] diltiazem HCl 120 mg capsule,extended release 24 hr 120 mg PO DAILY 90 days #90 caps 07/30/22 [Rx Confirmed 08/23/22] [facility] Medical History (Reviewed 08/23/22 @ 16:12 by Vel Joseph [employer]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, 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) Abnormal EKG Anxiety and depression 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 Bradycardia Chest pain Chronic back pain COVID-19 Excessive daytime sleepiness Eye abnormality Family history of ischemic heart disease Flu vaccine need Generalized anxiety disorder with panic attacks Hyperglycemia Hyperlipemia Hypokalemia Insomnia Lumbar radiculopathy TATIANA (obstructive sleep apnea) Palpitations Screening for HIV (human immunodeficiency virus) Screening for thyroid disorder Shortened AL interval Surgical History History of left heart catheterization (07/24/18) Family History Father CAD (coronary artery disease) S/P CABG (coronary artery bypass graft) Hyperlipidemia Grandfather , in age 50's CAD (coronary artery disease) Sudden cardiac Grandmother , age 70's CAD (coronary artery disease) Uncle , ages 47-48 CAD (coronary artery disease) Sudden cardiac Grandfather CAD (coronary artery disease) Myocardial infarction Grandmother , Age late 50's early 60's unknown cause, sudden No problems noted. Son No problems noted. Mother CAD (coronary artery disease) Myocardial infarction H/O right coronary artery stent placement, Onset Age: 53 Social History Smoking Status: Former smoker how long ago did patient quit smokin months ago alcohol intake: never substance use type: does not use caffeine: No ROS Const Const: Negative for fatigue, weakness, headache(s), frequent falls, difficulty sleeping or excessive sweating Eyes Eyes: Negative for loss of peripheral vision, transient loss of vision, blurry vision, double vision or tunnel vision ENT ENT: Negative for headache(s), dizziness, Nosebleed/epistaxis or balance problems Cardio Chest Pain: No Palpitations: No Edema: None Muscle aches with walking: None Resp Respiratory: Negative for SOB with activity, SOB at rest, SOB orthopnea SOB lying down, Cough or paroxysmal nocturnal dyspnea GI GI: Negative nausea, vomiting, heartburn or black,tarry stools : Negative for hematuria Musc Musc: Negative for muscle aches/ myalgia, muscle weakness, joint pain or balance problems Skin Skin: Negative non-healing lesions, rash or unusual bruising Neuro Neuro: Negative for dizziness, lightheadedness, near syncope, syncope, frequent falls, headache(s), weakness, blurry vision, double vision or lack of coordination Woody Hematologic/Lymphatic: Negative for easy bleeding or easy bruising Endo Endo: Negative for fatigue, excessive sweating or increased thirst/drinking Psych Psych: Negative for anxiety or depression Allergy Arnulfo (more content not included)... Normal [facility] Basophil percentageon 2021 Bilirubin [Mass/Vol] 0.30 mg/dL 0.20-1.00 [facility] Work Phone: Comment on above: For patients on eltr ombopag therapy, use of Dimension [place] TBIL is not recommended. Cholesterol [Mass/Vol] 207 mg/dL <200 [facility] Work Phone: Comment on above: <200 mg/dL Desirable 200-240 mg/dL Borderline >240 mg/dL High Risk Protein [Mass/Vol] 7.8 g/dL 6.4-8.2 [facility] Work Phone: [phone] Triglyceride [Mass/Vol] 409 mg/dL [facility] Work Phone: [phone] Comment on above: The drugs N-Acetylcy steine and Metamizole may falsely depress this assay. TRIGLYCERIDE IS GREATER THAN 400 mg/dL. LDL RESULT IS INVALID AND WILL NOT BE REPORTED.Serum Triglycerides Reference Interval Normal <150 mg/dL Borderline high 150 - 199 mg/dL High 200 - 499 mg/dL Very High > or = 500 mg/dL Direct bilirubinon Bilirubin.direct [Mass/Vol] 0.08 mg/dL 0.00-0.30 [facility] Work Phone: [phone] Laboratory - Chemistry and C hemistry - challengeon 09-11-2021 ALP [Catalytic activity/Vol] 59 U/L 45-117 [facility] Work Phone: [phone] ALT [Catalytic activity/Vol] 29 U/L 16-61 [facility] Work Phone: [phone] Globulin (S) [Mass/Vol] 3.8 g/dL 2.2-4.2 [facility] Work Phone: [phone] Serum or plasma albumin kevin urement (mass/volume)on 09-11-2021 Albumin [Mass/Vol] 4.0 g/dL 3.2-5.0 [facility] Work Phone: [phone] Serum or plasma cholesterol in HDL measurement (mass/volume)on 09-11-2021 Cholesterol in HDL [Mass/Vol] 33 mg/dL [facility] Work Phone: [phone] Comment on above: The drugs N-Acetylcy steine and Metamizole may falsely depress this assay. Reference Range HDL <40 mg/dL Low HDL Cholesterol HDL >or= 60 mg/dL High HDL Cholesterol Serum or plasma cholesterol in VLDL measurement (mass/volume)on 09-11-2021 Cholesterol in VLDL [Mass/Vol] TNP [facility] Work Phone: [phone] Comment on above: Test not performed Serum or plasma low density lipoprotein (LDL) cholesterol measurement (mass/volume)on 09-11-2021 Cholesterol in LDL [Mass/Vol] TNP [facility] Work Phone: Comment on above: Test not performed Thin prep Papanicolaou smear with manual screeningon 09-11-2021 Thin prep Papanicolaou smear with manual screening 19 U/L 15-37 [facility] Work Phone: Comment on above: Slight Hemolysis, Re sult may be falsely increased. PROGRESSon 07-20-2019 PROGRESS HNO ID: [id number] Author: Cindy Farrar (Roman) Dirk Service: ? Author Type: Physician [employer] Type: Progress Notes Filed: 07/20/2019 4:35 PM Note Text: There were no vitals taken for this visit. This Team Access Model visit is a virtual encounter. It required patient-provider interaction for the medical decision making as documented below. 29 year old male with c/o body aches, 99.0-102F, severe headache, SOB last night. Was shivering like he has in past with malaria as child and pneumonia. Not coughing or runny nose. Had diarrhea twice since yesterday. No ill contacts. Did have some cough a few nights ago. No production. Took tylenol. Took 's leftover amoxicillin x 3 pills. Identifies "heart disease". Heart cath 08/03/18: Dr Abbe Hall for angina, FH early CAD, indeterminate stress testing: EF 65%. Normal: RCA dominant, LM, Cx. prox LAD < 30% mild luminal irregularities Gemfibrozil 600mg, Cardizem 120mg daily Dr. Abbe Hall HISTORIES FAMILY HISTORY Problem Relation Age of Onset - Diabetes Mother - Ischemic Heart Disease Mother - other (TB) Mother - Ischemic Heart Disease Father - Thyroid Sister - Diabetes Maternal Grandmother - Ischemic Heart Disease Maternal Grandmother - Diabetes Maternal Grandfather - Ischemic Heart Disease Maternal Grandfather - Ischemic Heart Disease Paternal Grandmother - Ischemic Heart Disease Paternal Grandfather PAST MEDICAL HISTORY Diagnosis Date - Bradycardia - CAD (coronary artery disease) - History of left heart catheterization 07/24/2018 - Hyperlipidemia - Hypertriglyceridemia - TATIANA (obstructive sleep apnea) PAST SURGICAL HISTORY Procedure Laterality Date - APPENDECTOMY Social History Tobacco Use - Smoking status: Former Smoker - Smokeless tobacco: Never Used Substance Use Topics - Alcohol use: Not Currently - Drug use: Never There is no problem list on file for this patient. Current Outpatient Medications Medication Sig Dispense Refill - gemfibrozil (LOPID) 600 mg tablet Take 600 mg by mouth twice daily before meals. - aspirin, enteric coated (ASPIRIN, ENTERIC COATED) 81 mg EC tablet Take 81 mg by mouth once daily. - diltiazem (CARDIZEM) 120 mg tablet Take 120 mg by mouth once daily. No current facility-administered medications for this visit. DTAP,TDAP,TD(1 - Tdap) due on 01/13/1999 HIV SCREENING due on 01/13/2006 INFLUENZA(1) due on 12/20/2018 EXAM: There were no vitals taken for this visit. Pleasant adult man laying, appears in moderate distress with illness sx. Fatigued affect. Alert and oriented all spheres. Normal affect and cognition. Speech normal. No deficits to learning or comprehension. Respirations regular and unlabored. Speaking in full sentences. No cough, no SOB noted. No pain on self palpation sinuses, neck. ASSESSMENT/PLAN: 1. Flu-like symptoms - ICD9: 780.99, ICD10: R68.89 (primary diagnosis) This patient encounter involved the screening or treatment of novel coronavirus infection (COVID-19). - Discussed likely viral etiology, RSV versus influenza versus COVID-19 - Patient does not meet CDC or [facility] criteria for coronavirus testing at this time - Advised self-monitoring of symptoms and self-quarantine until symptoms resolve - Recommended emergency care if symptoms rapidly worsen Patient is interested in any ameliorating treatment: - IBUPROFEN 800 MG TABLET - OSELTAMIVIR 75 MG CAPSULE 2. Coronary artery disease involving duck[place] coronary artery of [place] heart with angina pectoris (HCC) - ICD9: 414.01, 413.9, ICD10: I25.[address] Hall. See letter for discharge instructions: ROMAN Garcia [facility] CNOVon 08-27-2018 CNOV Office Visit (PODIWS ) -------- RICK MENDOZA ([id number]) 1990 M Date Time Provider Department 08/27/18 10:45 AM BEATRICE ALLISON During your visit today, we recorded the following information about you: Azucena Velasco RN 08/28/2018 8:02 PM Signed AMB ROOMING INTAKE FLOWSHEET DATA Risk Screening Do you have concerns about personal safety or safety in the home?: No Pain Pain Level: 7 Pain Location: Foot-Left Description: Other: See comment(patient unable to describe pain) Duration Amount of Time: 2 Duration Units: Years Frequency: Intermittent Intervention: Reposition, Relaxation Patient presents with: New Patient: L foot pain Patient states pain has been ongoing for the past couple years. Unable to recall any injury. Pain present when walking, goes away with rest. He states he was seen in the past by a doctor in [place] who drained a water abscess and told patient he was bone on bone on L 1st MTPJ. He states he has had abscess drained several times. Pain is much worse when he wears a closed shoe so he has been wearing sandals. He has new xrays to review. Beatrice Allison DPM 08/28/2018 8:02 PM Signed Initial Podiatric Office Visit: Chief Complaint: This 28 year old male who presents with chief complaint:pain of left great toe HPI Patient presents to clinic for evaluation of left foot pain. Patient states he has pain to left hallux that has been present for a few years. He states he has pain that is on/off but worse when he is active. The more active he is, the more pain is he has. Patient states that currently, there is no pain. Patient states that he will treat the pain with change in shoes. He states that sandals help with his pain the most. On occasion, he gets water blisters that get drained. He states he has had water blisters drained in [place]. Patient states he has been told in past that he has no cartilage in joint. PAIN EVALUATION 08/27/2018 Pain Level: 7 Pain Location: Foot-Left Description: Other: See comment patient unable to describe pain patient unable to describe pain Duration Amount of Time: 2 Duration Units: Years Frequency: Intermittent Intervention: Reposition;Relaxation No results found for: HBA1C PCP: Scott Hampton APRN.CNP PAST MEDICAL HISTORY Diagnosis Date - Bradycardia - CAD (coronary artery disease) - History of left heart catheterization 07/24/2018 - Hyperlipidemia - Hypertriglyceridemia - TATIANA (obstructive sleep apnea) Current Outpatient Medications: gemfibrozil (LOPID) 600 mg tablet Take 600 mg by mouth twice daily before meals. aspirin, enteric coated (ASPIRIN, ENTERIC COATED) 81 mg EC tablet Take 81 mg by mouth once daily. diltiazem (CARDIZEM) 120 mg tablet Take 120 mg by mouth once daily. No current facility-administered medications for this visit. ALLERGIES No Known Allergies PAST SURGICAL HISTORY Procedure Laterality Date - APPENDECTOMY FAMILY HISTORY Problem Relation Age of Onset - Diabetes Mother - Ischemic Heart Disease Mother - other (TB) Mother - Ischemic Heart Disease Father - Thyroid Sister - Diabetes Maternal Grandmother - Ischemic Heart Disease Maternal Grandmother - Diabetes Maternal Grandfather - Ischemic Heart Disease Maternal Grandfather - Ischemic Heart Disease Paternal Grandmother - Ischemic Heart Disease Paternal Grandfather Social History Socioeconomic History Marital status: Spouse name: Not on file Number of children: Not on file Years of education: Not on file Highest education level: Not on file Social Needs Financial resource strain: Not on file Food insecurity - worry: Not on file Food insecurity - inability: Not on file Transportation needs - medical: Not on file Transportation needs - non-medical: Not on file Occupational History Not on file Tobacco Use Smoking status: Former Smoker Smokeless tobacco: Never Used Substance and Sexual Activity Alcohol use: Not Currently Drug use: Never Sexual activity: Not on file Other Topics Concerns: Not on file Social History Narrative Not on file REVIEW OF SYSTEMS GENERAL: Negative for Malaise, significant weight loss, fever RESPIRATORY: Negative for cough, wheezing and shortness of breath CARDIOVASCULAR: Negative for chest pain, leg swelling and palpitations GI: Negative for abdominal discomfort, blood in stools or black stools and change in bowel habits : Negative for dysuria, frequency and incontinence MUSCULOSKELETAL: positive for pain of left great toe SKIN: Negative for lesions, rash, and itching. HEMATOLOGY/LYMPHOLOGY Negative for prolonged bleeding, bruising easily, and swollen nodes. ENDOCRINE: Negative for cold or heat intolerance, polyuria, polydipsia and goiter. NEURO: negative Physical Exam: Constitutional: Pt is a well developed 28 year old male who is alert, oriented and cooperative Eyes: Following during examination. No redness or drainage. Respiratory: RR normal and nonlabored. Even breathing. No evidence of distress or shortness of breath. Psychology: Patient is engaged during conversation. Normal affect and mood. Does not appear depressed or anxious during encounter. Vascular: Dorsalis pedis and posterior tibial pulses palpable as b/l Capillary Fill time < 5 seconds to digits 1-5 b/l Skin temperature warm to warm proximal to distal b/l Hair growth present to digits Neurological: intact light touch/epicritic sensation b/l intact protective sensation no significant neurological deficits Dermatological: Nails 1-5 b/l appear normal. Webspaces clean and dry 1-4 b/l. Skin appears well hydrated and supple. good color, texture, turgor. No open lesions present. No callosities present. Musculoskeletal/Orthopae dic: Patient has pain to palpation of left tibial sesamoid. rom of left 1st mtpj is decreased with minimal pain Foot type is neutral structurally AJ ROM is full with knee extended and flexed 1st MPJ is decreased when loaded and + pain or crepitus are noted with ROM. MTJ, STJ are full and free of pain and crepitus. +5/5 muscle strength dorsiflexion, plantarflexion, inversion, eversion b/l Radiographs: 3 views left foot ordered August 27, 2018: I have personally reviewed and interpreted these XR myself: No acute fracture is noted. Mild spurring is present to left 1st mtpj ASSESSMENT: (M25.80) Sesamoiditis (primary encounter diagnosis) (M20.22) Hallux rigidus of left foot PLAN: 1. History and physical examination performed. 2. XR reviewed with patient and interpreted today 3. Discussed pain of left foot. On exam, most of his pain is along tibial sesamoid of left foot. While there is some pain with rom of left 1st mtpj, most of his pain is along tibial sesamoid. I am going to recommend he try dancer pad to see if offloading sesamoid may help with his pain. If he still has pain, steroid injection of 1st mtpj may be an option. 4. No blisters noted on exam today EJ Tamayo DPM Tayler Whitmyer RN 08/27/2018 11:14 AM Signed Dancer's pad will help offload area of pain. The image above will help you visualize the offloading process. WE DO NOT RECOMMEND PLACING ADHESIVE SIDE ON YOUR FOOT. Please place on insole. Azucena Velasco RN 08/28/2018 8:02 PM Signed Per Rick Chacon was provided with two dancer's pads and instructed/educated in its application, wear, and care. All questions were answered, and patient was able to demonstrate competence with the necessary skills to utilize the above equipment. Azucena Velasco RN Referring Provider: BEATRICE ALLISON [[id number]] Allergies As of Date: 08/27/2018 (No Known Allergies) Date Reviewed: 08/27/2018 Reviewed by: Azucena Velasco RN - Fully Assessed Reason for Visit: New Patient [172] Cmt: L foot pain Primary Visit Diagnosis:Sesamoiditis [M25.80] Other Visit Diagnosis:Hallux rigidus of left foot [M20.22] Prescriptions as of 08/27/2018 Sig: GEMFIBROZIL 600 MG TABLET Take 600 mg by mouth twice da* ASPIRIN 81 MG TABLET,DELAYED * Take 81 mg by mouth once lizbeth* DILTIAZEM 120 MG TABLET Take 120 mg by mouth once tiffanie* Problem List As Of Date: 08/27/2018 (None) Other instructions from your clinician: Dancer's pad will help offload area of pain. The image above will help you visualize the offloading process. WE DO NOT RECOMMEND PLACING ADHESIVE SIDE ON YOUR FOOT. Please place on insole. Disposition: Return in about 1 month (around 09/24/2018) for sesamoiditis, L . LOS history recorded Follow-up and Disposition History Recorded Encounter Status:Closed by BEATRICE ALLISON DPM on 08/28/18 Normal [facility] PROGRESSon 08-27-2018 PROGRESS HNO ID: [id number] Author: Azucena Velasco RN Service: ? Author Type: ? Type: Progress Notes Filed: 08/28/2018 8:02 PM Note Text: Per Rick Chacon was provided with two dancer's pads and instructed/educated in its application, wear, and care. All questions were answered, and patient was able to demonstrate competence with the necessary skills to utilize the above equipment. Azucena Velasco RN Normal [facility] PROGRESS HNO ID: [id number] Author: Beatrice Allison Service: ? Author Type: Physician Type: Progress Notes Filed: 08/28/2018 8:02 PM Note Text: Initial Podiatric Office Visit: Chief Complaint: This 28 year old male who presents with chief complaint:pain of left great toe HPI Patient presents to clinic for evaluation of left foot pain. Patient states he has pain to left hallux that has been present for a few years. He states he has pain that is on/off but worse when he is active. The more active he is, the more pain is he has. Patient states that currently, there is no pain. Patient states that he will treat the pain with change in shoes. He states that sandals help with his pain the most. On occasion, he gets water blisters that get drained. He states he has had water blisters drained in [place]. Patient states he has been told in past that he has no cartilage in joint. PAIN EVALUATION 08/27/2018 Pain Level: 7 Pain Location: Foot-Left Description: Other: See comment patient unable to describe pain patient unable to describe pain Duration Amount of Time: 2 Duration Units: Years Frequency: Intermittent Intervention: Reposition;Relaxation No results found for: HBA1C PCP: Scott Hampton APRN.CNP PAST MEDICAL HISTORY Diagnosis Date - Bradycardia - CAD (coronary artery disease) - History of left heart catheterization 07/24/2018 - Hyperlipidemia - Hypertriglyceridemia - TATIANA (obstructive sleep apnea) Current Outpatient Medications: gemfibrozil (LOPID) 600 mg tablet Take 600 mg by mouth twice daily before meals. aspirin, enteric coated (ASPIRIN, ENTERIC COATED) 81 mg EC tablet Take 81 mg by mouth once daily. diltiazem (CARDIZEM) 120 mg tablet Take 120 mg by mouth once daily. No current facility-administered medications for this visit. ALLERGIES No Known Allergies PAST SURGICAL HISTORY Procedure Laterality Date - APPENDECTOMY FAMILY HISTORY Problem Relation Age of Onset - Diabetes Mother - Ischemic Heart Disease Mother - other (TB) Mother - Ischemic Heart Disease Father - Thyroid Sister - Diabetes Maternal Grandmother - Ischemic Heart Disease Maternal Grandmother - Diabetes Maternal Grandfather - Ischemic Heart Disease Maternal Grandfather - Ischemic Heart Disease Paternal Grandmother - Ischemic Heart Disease Paternal Grandfather Social History Socioeconomic History Marital status: Spouse name: Not on file Number of children: Not on file Years of education: Not on file Highest education level: Not on file Social Needs Financial resource strain: Not on file Food insecurity - worry: Not on file Food insecurity - inability: Not on file Transportation needs - medical: Not on file Transportation needs - non-medical: Not on file Occupational History Not on file Tobacco Use Smoking status: Former Smoker Smokeless tobacco: Never Used Substance and Sexual Activity Alcohol use: Not Currently Drug use: Never Sexual activity: Not on file Other Topics Concerns: Not on file Social History Narrative Not on file REVIEW OF SYSTEMS GENERAL: Negative for Malaise, significant weight loss, fever RESPIRATORY: Negative for cough, wheezing and shortness of breath CARDIOVASCULAR: Negative for chest pain, leg swelling and palpitations GI: Negative for abdominal discomfort, blood in stools or black stools and change in bowel habits : Negative for dysuria, frequency and incontinence MUSCULOSKELETAL: positive for pain of left great toe SKIN: Negative for lesions, rash, and itching. HEMATOLOGY/LYMPHOLOGY Negative for prolonged bleeding, bruising easily, and swollen nodes. ENDOCRINE: Negative for cold or heat intolerance, polyuria, polydipsia and goiter. NEURO: negative Physical Exam: Constitutional: Pt is a well developed 28 year old male who is alert, oriented and cooperative Eyes: Following during examination. No redness or drainage. Respiratory: RR normal and nonlabored. Even breathing. No evidence of distress or shortness of breath. Psychology: Patient is engaged during conversation. Normal affect and mood. Does not appear depressed or anxious during encounter. Vascular: Dorsalis pedis and posterior tibial pulses palpable as b/l Capillary Fill time < 5 seconds to digits 1-5 b/l Skin temperature warm to warm proximal to distal b/l Hair growth present to digits Neurological: intact light touch/epicritic sensation b/l intact protective sensation no significant neurological deficits Dermatological: Nails 1-5 b/l appear normal. Webspaces clean and dry 1-4 b/l. Skin appears well hydrated and supple. good color, texture, turgor. No open lesions present. No callosities present. Musculoskeletal/Orthopae dic: Patient has pain to palpation of left tibial sesamoid. rom of left 1st mtpj is decreased with minimal pain Foot type is neutral structurally AJ ROM is full with knee extended and flexed 1st MPJ is decreased when loaded and + pain or crepitus are noted with ROM. MTJ, STJ are full and free of pain and crepitus. +5/5 muscle strength dorsiflexion, plantarflexion, inversion, eversion b/l Radiographs: 3 views left foot ordered August 27, 2018: I have personally reviewed and interpreted these XR myself: No acute fracture is noted. Mild spurring is present to left 1st mtpj ASSESSMENT: (M25.80) Sesamoiditis (primary encounter diagnosis) (M20.22) Hallux rigidus of left foot PLAN: 1. History and physical examination performed. 2. XR reviewed with patient and interpreted today 3. Discussed pain of left foot. On exam, most of his pain is along tibial sesamoid of left foot. While there is some pain with rom of left 1st mtpj, most of his pain is along tibial sesamoid. I am going to recommend he try dancer pad to see if offloading sesamoid may help with his pain. If he still has pain, steroid injection of 1st mtpj may be an option. 4. No blisters noted on exam today EJ Tamayo DPM [facility] PROGRESS HNO ID: [id number] Author: Azucena Velasco RN Service: ? Author Type: ? Type: Progress Notes Filed: 08/28/2018 8:02 PM Note Text: AMB ROOMING INTAKE FLOWSHEET DATA Risk Screening Do you have concerns about personal safety or safety in the home?: No Pain Pain Level: 7 Pain Location: Foot-Left Description: Other: See comment(patient unable to describe pain) Duration Amount of Time: 2 Duration Units: Years Frequency: Intermittent Intervention: Reposition, Relaxation Patient presents with: New Patient: L foot pain Patient states pain has been ongoing for the past couple years. Unable to recall any injury. Pain present when walking, goes away with rest. He states he was seen in the past by a doctor in [place] who drained a water abscess and told patient he was bone on bone on L 1st MTPJ. He states he has had abscess drained several times. Pain is much worse when he wears a closed shoe so he has been wearing sandals. He has new xrays to review. [facility] PROGRESS HNO ID: [id number] Author: Debby ManRtEllen Harding Service: ? Author Type: Automatic Bow Maker Machine Tender Type: Progress Notes Filed: 08/27/2018 10:28 AM Note Text: Radiology Service Progress Note PATIENT NAME: Rick Mendoza DATE OF SERVICE: August 27, 2018 TIME: 10:21 AM PATIENT IDENTITY VERIFICATION COMPLETED USING TWO (2) METHODS: Patient confirmed name verbally and Date of . PATIENT GENDER DATA: Male PATIENT RELEVANT IMPLANT DATA REVIEWED: Not Applicable RADIOLOGY DEPARTMENT: General X-ray: Exam(s) Completed: Lower Extremity X-Ray(s): Foot, Left and Wt. Bearing: PERIPHERAL IV DATA: Not applicable SIGNED BY: RT Juve August 27, 2018 10:21 AM [facility] XR FOOT 3V AP/LAT/OBL LTon 0 08-27-2018 XR FOOT 3V AP/LAT/OBL LT * * *Final Report* * * DATE OF EXAM: Aug 27 2018 10:27AM [id number] - XR FOOT 3V AP/LAT/OBL LT / PROCEDURE REASON: Pain in left foot * * * * Physician Interpretation * * * * CLINICAL INDICATION: Left foot pain TECHNIQUE: 3 view radiographic study of the left foot with inclusion of a single frontal view of the right foot for purposes of comparison/symmetry. COMPARISON: None FINDINGS: No acute fracture or dislocation identified. Joint spaces preserved. Miniscule left calcaneal enthesophyte at the insertion of the Achilles tendon. IMPRESSION: No radiographic evidence of acute osseous abnormality. Bill Checker: PSCB Transcribe Date/Time: Aug 27 2018 11:31A Dictated by : DANIEL HOLCOMB MD This examination was interpreted and the report reviewed and electronically signed by: DANIEL HOLCOMB MD on Aug 27 2018 11:32AM EST [id number] [facility] CNOVon 07-29-2018 CNOV Office Visit (FAMPWS ) -------- RICK MENDOZA ([id number]) 1990 M Date Time Provider Department 07/29/18 3:20 PM SCOTT HAMPTON (LUANN ORDONEZ During your visit today, we recorded the following information about you: Pulse Respiration Blood pressure Weight 58/minute 16/minute 90/64 99.2 kg Height 1.778 m Scott Hampton APRN.CNP 07/30/2018 7:41 AM Signed consu07/29/2018 Patient presents with: Establish Care SUBJECTIVE: This is a 28 year old that is here today for Above Complaints. Was in [facility] last week for heart cath. Reports he had chest pain and was kept overnight. Reports hx of heart problems and was seeing heart group in [place], [place]. Also reports triglycerides elevated in the 600 and was placed on gemfibrozil. Also diagnosed with TATIANA and will be haivng pap titration at [facility]. Wants referral to podiatry, opthomolgy, and dentist. Reports no joint in great toe left foot and was told in past he needs surgery for this. Reports he gets abscess from time to time. Had glasses in [place] for night driving and needs to get a new prescription. Reports dental caries and has not had cleaning or check up for years. Reports always run low heart rate and BP. Denies current chest pain, palpitations, leg edema, SOB with exertion, dyspnea, or wheezing Reports he will get tetanus booster through work, otherwise up to date on vaccnies PAST MEDICAL HISTORY Diagnosis Date - CAD (coronary artery disease) - Hyperlipidemia - TATIANA (obstructive sleep apnea) ALLERGIES Patient has no known allergies. MEDICATIONS Current Outpatient Medications: gemfibrozil (LOPID) 600 mg tablet Take 600 mg by mouth twice daily before meals. aspirin, enteric coated (ASPIRIN, ENTERIC COATED) 81 mg EC tablet Take 81 mg by mouth once daily. diltiazem (CARDIZEM) 120 mg tablet Take 120 mg by mouth once daily. No current facility-administered medications for this visit. Medications and allergies reviewed by this provider. SOCIAL HISTORY Social History Socioeconomic History Marital status: Spouse name: Not on file Number of children: Not on file Years of education: Not on file Highest education level: Not on file Social Needs Financial resource strain: Not on file Food insecurity - worry: Not on file Food insecurity - inability: Not on file Transportation needs - medical: Not on file Transportation needs - non-medical: Not on file Occupational History Not on file Tobacco Use Smoking status: Former Smoker Smokeless tobacco: Never Used Substance and Sexual Activity Alcohol use: Not Currently Drug use: Never Sexual activity: Not on file Other Topics Concerns: Not on file Social History Narrative Not on file REVIEW OF SYSTEMS GENERAL: No weight loss, malaise or fevers HEENT: Negative for frequent or significant headaches, No changes in hearing or vision, no nose bleeds or other nasal problems NECK: Negative for lumps, goiter, pain and significant neck swelling RESPIRATORY: Negative for cough, hemoptysis, wheezing, COPD, dyspnea. Occasional SOB with exertion or shortness of breath CARDIOVASCULAR: See HPI No leg edema GI: No nausea, vomiting, or diarrhea ENDOCRINE: Negative for cold or heat intolerance, polyuria, polydipsia and goiter NEURO: No history of headaches, syncope, paralysis, seizures or tremors All other reviewed and negative other than HPI. OBJECTIVE: BP 90/64 (BP Site: Left Arm, BP Position: Sitting, BP Cuff Size: Large Adult) Pulse (!) 58 Resp 16 Ht 177.8 cm (5' 10") Wt 99.2 kg (218 lb 12.8 oz) BMI 31.39 kg/m? . Vital signs reviewed by this provider. APPEARANCE Well appearing, alert, in no acute distress, well-hydrated, well nourished. and Overweight EYES PERRLA, conjunctiva and sclera normal. EARS External ears normal, canals clear THROAT normal, no erythema. Scattered dental caries NECK Supple, no adenopathy; thyroid symmetric, normal size, no bruits HEART RRR with normal S1 and S2, no murmurs, no gallops, no JVD appreciated LUNG clear to auscultation EXTREMITIES Extremities normal, No deformities, No skin discoloration, No edema and Normal pulses bilaterally. SKIN Skin color, texture, turgor normal, no suspicious rashes or lesions to exposed skin ASSESSMENT/PLAN: 1. Routine physical examination - ICD9: V70.0, ICD10: Z00.00 (primary diagnosis) - Recommended regular aerobic exercise. - Discussed need and benefit for weight loss. BMI 31.39 kg/(m2) - Vaccination(s) recommended today: Td - Follow up for annual exam in one year. 2. 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 TATIANA (obstructive sleep apnea) - ICD9: 327.23, ICD10: G47.33 - follow-up with titration 4. Diminished night vision - ICD9: 368.69, ICD10: H53.69 - CONSULT TO OPHTHALMOLOGY 5. Left foot pain - ICD9: 729.5, ICD10: M79.672 - CONSULT TO PODIATRY 6. Dental caries - ICD9: 521.00, ICD10: K02.9 - CONSULT TO DENTISTRY 7. Hypertriglyceridemia - ICD9: 272.1, ICD10: E78.1 - need to obtain lipid panel from hospital - will need to recheck in 3 months - continue gemfibrozil - follow-up in 3 months Scott Podlogar, GENERAL ASSEMBLER INSTALLER.KAT Prescription instructions reviewed with patient as applicable. Patient advised if symptoms do not improve or if symptoms worsen sooner, to contact their primary care physician. Potential red flag symptoms discussed with the patient. Reviewed appropriate action plan to take if red flag symptoms occur. Patient agreeable to treatment plan. Referring Provider: SELF [200] Allergies As of Date: 07/29/2018 (No Known Allergies) Date Reviewed: 07/29/2018 Reviewed by: Scott Price) Podlogar - Fully Assessed Reason for Visit: Establish Care [42] Primary Visit Diagnosis:Routine physical examination [Z00.00] Other Visit Diagnoses:Coronary artery disease involving duckwater heart with angina pectoris, unspecified vessel or lesion type (HCC) [I25.119] TATIANA (obstructive sleep apnea) [G47.33] Diminished night vision [H53.69] Left foot pain [M79.672] Dental caries [K02.9] Hypertriglyceridemia [E78.1] Order(s):CONSULT TO OPHTHALMOLOGY [9035] Order #: [id number]: 1 CONSULT TO DENTISTRY [] Order #: [id number]: 1 CONSULT TO PODIATRY [9050] Order #: [id number]: 1 Prescriptions as of 07/29/2018 Sig: GEMFIBROZIL 600 MG TABLET Take 600 mg by mouth twice da* ASPIRIN 81 MG TABLET,DELAYED * Take 81 mg by mouth once lizbeth* DILTIAZEM 120 MG TABLET Take 120 mg by mouth once tiffanie* Problem List As Of Date: 07/29/2018 (None) Follow-up and Disposition History Recorded Encounter Status:Closed by PODLOGAR, SCOTT STEPHENS on 07/30/18 [facility] PROGRESSon 07-29-2018 PROGRESS HNO ID: [id number] Author: Scott (Kat) Podlogar Service: ? Author Type: Nurse Practitioner Type: Progress Notes Filed: 07/30/2018 7:41 AM Note Text: consu07/29/2018 Patient presents with: Establish Care SUBJECTIVE: This is a 28 year old that is here today for Above Complaints. Was in [facility] last week for heart cath. Reports he had chest pain and was kept overnight. Reports hx of heart problems and was seeing heart group in [place], [place]. Also reports triglycerides elevated in the 600 and was placed on gemfibrozil. Also diagnosed with TATIANA and will be haivng pap titration at [facility]. Wants referral to podiatry, opthomolgy, and dentist. Reports no joint in great toe left foot and was told in past he needs surgery for this. Reports he gets abscess from time to time. Had glasses in [place] for night driving and needs to get a new prescription. Reports dental caries and has not had cleaning or check up for years. Reports always run low heart rate and BP. Denies current chest pain, palpitations, leg edema, SOB with exertion, dyspnea, or wheezing Reports he will get tetanus booster through work, otherwise up to date on vaccnies PAST MEDICAL HISTORY Diagnosis Date - CAD (coronary artery disease) - Hyperlipidemia - TATIANA (obstructive sleep apnea) ALLERGIES Patient has no known allergies. MEDICATIONS Current Outpatient Medications: gemfibrozil (LOPID) 600 mg tablet Take 600 mg by mouth twice daily before meals. aspirin, enteric coated (ASPIRIN, ENTERIC COATED) 81 mg EC tablet Take 81 mg by mouth once daily. diltiazem (CARDIZEM) 120 mg tablet Take 120 mg by mouth once daily. No current facility-administered medications for this visit. Medications and allergies reviewed by this provider. SOCIAL HISTORY Social History Socioeconomic History Marital status: Spouse name: Not on file Number of children: Not on file Years of education: Not on file Highest education level: Not on file Social Needs Financial resource strain: Not on file Food insecurity - worry: Not on file Food insecurity - inability: Not on file Transportation needs - medical: Not on file Transportation needs - non-medical: Not on file Occupational History Not on file Tobacco Use Smoking status: Former Smoker Smokeless tobacco: Never Used Substance and Sexual Activity Alcohol use: Not Currently Drug use: Never Sexual activity: Not on file Other Topics Concerns: Not on file Social History Narrative Not on file REVIEW OF SYSTEMS GENERAL: No weight loss, malaise or fevers HEENT: Negative for frequent or significant headaches, No changes in hearing or vision, no nose bleeds or other nasal problems NECK: Negative for lumps, goiter, pain and significant neck swelling RESPIRATORY: Negative for cough, hemoptysis, wheezing, COPD, dyspnea. Occasional SOB with exertion or shortness of breath CARDIOVASCULAR: See HPI No leg edema GI: No nausea, vomiting, or diarrhea ENDOCRINE: Negative for cold or heat intolerance, polyuria, polydipsia and goiter NEURO: No history of headaches, syncope, paralysis, seizures or tremors All other reviewed and negative other than HPI. OBJECTIVE: BP 90/64 (BP Site: Left Arm, BP Position: Sitting, BP Cuff Size: Large Adult) Pulse (!) 58 Resp 16 Ht 177.8 cm (5' 10") Wt 99.2 kg (218 lb 12.8 oz) BMI 31.39 kg/m? . Vital signs reviewed by this provider. APPEARANCE Well appearing, alert, in no acute distress, well-hydrated, well nourished. and Overweight EYES PERRLA, conjunctiva and sclera normal. EARS External ears normal, canals clear THROAT normal, no erythema. Scattered dental caries NECK Supple, no adenopathy; thyroid symmetric, normal size, no bruits HEART RRR with normal S1 and S2, no murmurs, no gallops, no JVD appreciated LUNG clear to auscultation EXTREMITIES Extremities normal, No deformities, No skin discoloration, No edema and Normal pulses bilaterally. SKIN Skin color, texture, turgor normal, no suspicious rashes or lesions to exposed skin ASSESSMENT/PLAN: 1. Routine physical examination - ICD9: V70.0, ICD10: Z00.00 (primary diagnosis) - Recommended regular aerobic exercise. - Discussed need and benefit for weight loss. BMI 31.39 kg/(m2) - Vaccination(s) recommended today: Td - Follow up for annual exam in one year. 2. 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 TATIANA (obstructive sleep apnea) - ICD9: 327.23, ICD10: G47.33 - follow-up with titration 4. Diminished night vision - ICD9: 368.69, ICD10: H53.69 - CONSULT TO OPHTHALMOLOGY 5. Left foot pain - ICD9: 729.5, ICD10: M79.672 - CONSULT TO PODIATRY 6. Dental caries - ICD9: 521.00, ICD10: K02.9 - CONSULT TO DENTISTRY 7. Hypertriglyceridemia - ICD9: 272.1, ICD10: E78.1 - need to obtain lipid panel from hospital - will need to recheck in 3 months - continue gemfibrozil - follow-up in 3 months Scott Podlogar, GENERAL ASSEMBLER INSTALLER.DESSERT CUP MACHINE FEEDER Prescription instructions reviewed with patient as applicable. Patient advised if symptoms do not improve or if symptoms worsen sooner, to contact their primary care physician. Potential red flag symptoms discussed with the patient. Reviewed appropriate action plan to take if red flag symptoms occur. Patient agreeable to treatment plan. [facility] Vital Signs Date Time Vital Sign Value Performing Clinician Aixa jeronimo 08-23-2022 15:50-0400 Body weight 98.[address] Jerrod Chase Work Phone: [facility] 08-23-2022 15:50-0400 Diastolic blood pressure 70 mm[Hg] Dr. Jerrod Chase Work Phone: [facility] 08-23-2022 15:50-0400 Heart rate 68 /min Dr. Jerrod Chase Work Phone: [facility] 08-23-2022 15:50-0400 Respiratory rate 16 /min Dr. Jerrod Chase Work Phone: [facility] 08-23-2022 15:50-0400 Systolic blood pressure 110 mm[Hg] Dr. Jerrod Chase Work Phone: [facility] 08-23-2022 13:32-0400 Body height 182.[address] Jerrod Chase Work Phone: [facility] 09-07-2021 15:24-0400 Body height 182.[address] Jerrod Chase Work Phone: [facility] Work Phone: 09-07-2021 15:24-0400 Body mass index (BMI) [Ratio] 28.7 kg/m2 Dr. Jerrod Chase Work Phone: [facility] Work Phone: 09-07-2021 15:24-0400 Body weight 96.[address] Jerrod Chase Work Phone: [facility] Work Phone: 09-07-2021 15:24-0400 Diastolic blood pressure 68 mm[Hg] Dr. Jerrod Chase Work Phone: [facility] Work Phone: 09-07-2021 15:24-0400 Heart rate 79 /min Dr. Jerrod Chase Work Phone: [facility] Work Phone: 09-07-2021 15:24-0400 Respiratory rate 16 /min Dr. Jerrod Chase Work Phone: [facility] Work Phone: 09-07-2021 15:24-0400 Systolic blood pressure 107 mm[Hg] Dr. Jerrod Chase Work Phone: [facility] Work Phone: Encounters Encounter Date Encounter Type Care Provider Facility Start: 10-13-2023 End: 10-13-2023 Clinical Support Encounter Max Denton LMT Work Phone: [facility] Comment on above: Musculoskeletal pain (Primary Dx) Start: 10-13-2023 ambulatory SELF SELF Facility:[facility] Start: 02-28-2023 End: 02-28-2023 ambulatory [facility] Facility:[facility] Start: 01-03-2023 End: 01-03-2023 ambulatory [facility] Facility:[facility] Start: 08-24-2022 End: 08-24-[address] Jerrod Chase Work Phone: [facility] Work Phone: Start: 08-24-2022 End: 08-24-[address] Jerrod Chase Work Phone: [facility] Start: 08-23-2022 End: 08-23-2022 ambulatory [facility] Facility:[facility] Start: 08-23-2022 End: 08-23-[address] Jerrod Chase Work Phone: [facility] Start: 09-11-2021 End: 09-11-[address] Jerrod Chase Work Phone: [facility] Start: 09-07-2021 End: 09-07-[address] Jerrod Chase Work Phone: [facility] Plan of Treatment Date Care Activity Detail Author Start: 12-21-2023 Influenza vaccination INFLUENZ A VACCINE (Season Ended) [facility] Start: 12-20-2022 COVID-19 VACCINE ( season) COVID-19 VACCINE ( season) [facility] Start: 01-13-2007 Hepatitis B vaccination HEP B VACCINE (1 of 3 - 19+ 3-dose series) [facility] Start: 01-13-2007 Third diphtheria, tetanus and acellular pertussis (DTaP) vaccination TDAP (ADULT) [facility] Start: 01-13-2003 HIV screening HIV SCREENING DISCUSSION [facility] Start: 1990 Hepatitis C screening HEPATITI S C VIRUS SCREENING [facility] Start: 1990 Tetanus vaccination TETANUS [facility] Immunizations Immunization Date Immunization Notes Care Provider Fa cili 02-09-2018 influenza, injectabl e, quadrivalent, preservative free [facility] 02-09-2018 influenza, seasonal, injectable Dr. Jerrod Chase Work Phone: [facility] Payers Date Payer Category Payer Self-pay [id number] 2022 Unknown [id number] 2020 Medicaid [id number] 2018 Unknown [facility] [employer] [id number] 2018-Present [address] [place] [address] [id number] 2018 Unknown [id number] 1990 Unknown [id number] Unknown [facility] TRUST DO NOT USE [id number] Unknown [id number] Unknown [id number] Unknown [id number] Unknown [id number] Social History Date Type Detail Facility Start: 09-07-2021 End: 08-23-2022 Tobacco smoking status NHIS Unknown if ever smoked [facility] Start: 07-24-2018 Cigarettes [facility] Start: 1990 Sex Assigned At Male W [facility] Start: 1990 Sex assigned at Not on file O PAIGE [facility] Gender identity Not on file [facility] History of Present illness Narrative 10-13-2023 Max Denton, LMT - 10/13/2023 3:00 PM EDT Note Date & Type Note Facility 10-13-2023 History of Present illness Narrative Self pay. 10/13/2023 MASSAGE THERAPY INITIAL SESSION HISTORY / EVALUATION Rick Mendoza is a 33 y.o. male who presents today to [facility] for massage therapy. Rick was referred by self for help with pain and stiffness. Rick's had concerns including Musculoskeletal Pain. No vitals were taken today during Rick Mendoza's visit. I have reviewed Rick's health history and medications prior to initiating massage therapy today. There are no contraindications for modalities used or areas worked. Patient education was given regarding side effects of soreness and or fatigue. Goals discussed: increase postural stability, reduce musculoskeletal hypertonicity, reduce myofascial adhesions, and reduce pain Discussed massage therapy format: low back, hips, and hamstrings Patient comments: patient notes lower back pain that radiates down his left leg PALPATORY / OTHER FINDINGS: Musculoskeletal hypertonicity was palpated: spinal erectors, QL, glutes, hamstrings Other Mid-treatment Observations: All bilateral, except where noted. MODALITIES: With patient lying in supine and prone positions, Compression Massage, Cross-fiber friction, Deep-Specific Tissue Approach, Myofascial Release, Malagasy-Style Relaxation techniques, and Trigger Point Therapy were applied to decrease pain and stiffness. Pressure was a 3-4/5 according to the scale below: Pressure Scale 0 1 2 3 4 5 Energy Technique Passive Touch on clothing Passive Touch on skin Light Pressure Medium Pressure Deep Pressure 2-6 inches away from the recipient s body Applying light touch over clothing Applying light touch directly on skin Light manipulation of soft tissue to increase minimal blood flow Medium manipulation to increase blood flow and flush lymphatic system Deep Trigger Point or Myofascial work breaking down adhesions or to rebuild muscle fibers. RESPONSE: Objective Information: decreased tone in areas of tx. Pt reported: addressed areas of concern. Comments: Will adapt treatment pending results from previous sessions. PLAN / RECOMMENDATIONS Hydrate as appropriate. Rick Mendoza did express understanding of the recommendations by verbalizing understanding and he will follow-up for massage therapy in 4 weeks and/or earlier as needed. Time spent with patient:50 minutes. 45 minutes Self Pay Massage Therapy Massage Therapist seen today: Max Denton LMT documented in this encounter [facility] Evaluation note Note Date & Type Note Facility Evaluation note Diagnosis Onset Date Palpitations acute Atherosclerotic heart diseas e of duckwater coronary artery without angina pectoris chronic Bradycardia chronic Hyperlipemia [facility] Work Phone: Evaluation note Note Date & Type Note Facility Evaluation note Diagnosis Onset Date Atherosclerotic heart diseas e of [place] coronary artery without angina pectoris chronic Bradycardia chronic Hyperlipemia chronic Palpitations [facility] Work Phone: Evaluation note Note Date & Type Note Facility Evaluation note No assessment information availa [facility] Work Phone: Evaluation note Note Date & Type Note Facility Evaluation note Diagnosis Musculoskeletal pain- Primary Mylagia and myositis, unspecified documented in this encounter [facility] Summary Purpose Family History No Family History Records Found Relationship Condition Age at Onset Recorded Date/T dea father Coronary artery disease Unknown Status post coronary artery bypass graft Unknown Hyperlipidemia Unknown grandfather Coronary artery disease Unknown Sudden cardiac Unknown grandmother Coronary artery disease Unknown uncle Coronary artery disease Unknown Myocardial infarction Unknown mother Coronary artery disease Unknown History of right cor onary artery stent placement 51 Advance Directives No Advanced Directives Records Found Advance Directive Response Recorded Date/ Time Living Will No March 22 12:27pm Power of Irrigation System Operator No March 22, 2021 12:27pm Advance Directive Response Recorded Date/ Time Living Will No July 10, 2022 12:33pm Power of Irrigation System Operator No July 10 12:33pm Chief Complaint and Reason for Visit Chief Complaint 6 M FU E ORDERS Reason for Visit Palpitations 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 Bradycardia Hyperlipemia Chief Complaint F/U *NEEDS FRIDAY EORDER Reason for Visit Atherosclerotic hear t disease of [place] coronary artery without angina pectoris Bradycardia Hyperlipemia Palpitations Additional Source Comments (unrecognized sect ion and content) No Status Records FoundNo Status Records FoundNo Status Records Found INFORMATION SOURCE (unrecogn ized section and content) DATE CREATED AUTHOR 07/20/2019 [facility] DATE CREATED AUTHOR AUTHOR'S ORGANIZ ATION 07/03/2023 [facility] DATE CREATED AUTHOR AUTHOR'S ORGANIZ ATION 10/18/2023 [facility] Goals (unrecognized section and content) Goals may be documented in a n alternate sectionGoals may be documented in an alternate sectionGoals may be documented in an alternate section Care Teams (unrecognized sec tion and content) Team Status: Active Member Role Status Dates No Primary Care Physician Family Provider Active Dr. Jerrod Chase MD Primary Care Provider Active Team Status: Inactive Member Role Status Dates Dr. Jerrod Chase MD Primary Care Provider, Refer ring Provider Active Vel Joseph 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, 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 Attending Provider Active Team Status: Inactive Member Role Status Dates Dr. Jerrod Chase MD Primary Care Provider Active Vel Joseph FI[employer] HAR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, 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 Attending Provider, Referring Pro vider Active Reason for Visit (unrecogniz ed section and content) Reason Comments Musculoskeletal Pain FOR RECORDS PERTAINING TO PATIENTS WHO ARE OR HAVE BEEN ENROLLED IN A CHEMICAL DEPENDENCY/SUBSTANCEABUSE PROGRAM, SOME INFORMATION MAY BE OMITTED. This clinical summary was aggregated from multiple sources. Caution should be exercised in using it in the provision of clinical care. This summary normalizes information from multiple sources, and as a consequence, information in this document may materially change the coding, format and clinical context of patient data. In addition, data may be omitted in some cases. CLINICAL DECISIONS SHOULD BE BASED ON THE PRIMARY CLINICAL RECORDS. [employer] provides no warranty or guarantee of the accuracy or completeness of information in this document.
== END | disposition home or self-care (01) ==
LOC: LAB 16:14
PROVIDERS: PCP Internal Medicine; Referring Provider Nurse Practitioner Family; Visit Provider Nurse Practitioner Family
DX: I25.10 Atherosclerotic heart disease of native coronary artery without angina pectoris (principal); R07.9 Chest pain, unspecified; Z82.49 Family history of ischemic heart disease and other diseases of the circulatory system
CPT/HCPCS: 36415; 80048; 80061; 83036; 83695

== ENCOUNTER → 2025-02-18 | Outpatient (CLI) | payer SELFPAY ==
--- NOTE | 2025-02-18 12:51 | CT_ITS ---
PROCEDURE: LIMITED CHEST CT CARDIAC ONLY 02/18/2025 REASON FOR EXAM: CHEST PAIN TECHNIQUE: Procedure Code: [id number] Modality: CT Procedure: LIMITED CHEST CT CARDIAC ONLY CONTRAST: Isovue 370 VOLUME: 100 mL One or more dose reduction techniques were used (e.g., Automated exposure control, adjustment of the mA and/or kV according to patient size, use of iterative reconstruction technique). RADIATION DOSE SUMMARY: CTDlvol: 51 mGy DLP: 2791.1 mGycm COMPARISON: None FINDINGS: Calcified precarinal lymph node. Coronary artery calcification. The heart is nonenlarged. Diffuse fatty infiltration of the liver. The visualized portions of the lungs is unremarkable. CT/Limited Chest CT Cardiac Only IMPRESSION: Coronary artery calcification. Reading Location: [id number]
--- OUTSIDE RECORDS SUMMARY | 2025-02-18 12:52 | XMS RPT_ITS | CCD ---
Author Organization [facility] Care Team Providers Care Nurseryperson Name Role Phone Dr. eJrrod Chase Primary Care Provider [phone] Dr. Jerrod Chase Referring Provider [phone] Roof WAREHOUSE HAND, WAREHOUSE HAND-C Vel Dave Attending Provider Unavailable Primary Care Provider Unavailabl e SELF, SELF Referring Unavailable Salvatore COVARRUBIAS, Dr. Elder Primary Care Physician Salvatore COVARRUBIAS, Dr. Elder Referring Provider [phone] Roof WAREHOUSE HAND-C, Vel Dave Attending Physician Roof WAREHOUSE HAND-C, Vel Dave Referring Provider Roof WAREHOUSE HAND, Vel Dave Referring Unavailable Roof WAREHOUSE HAND, Vel Dave Attending Unavailable Jerrod Chase Primary Care Unavailable Roof WAREHOUSE HAND, Vel Dave Attending Unavailable Jerrod Chase Primary Care Unavailable Roof WAREHOUSE HAND, Vel Dave Referring Unavailable Roof WAREHOUSE HAND, Vel Dave Attending Unavailable Jerrod Chase Referring Unavailable Jerrod Chase Primary Care Unavailable Medications Completed/Discontinued Medications Medication Drug Class(es) Dates Sig (Normalized) Sig (Original) aspirin 81 mg delayed release oral tablet (12 sources) Platelet Aggregation Inhibitor, Nonsteroidal Anti-inflammatory Drug Start: 07-24-2018 End: 01-12-2025 take 1 tablet by mouth once daily Aspirin 81 mg tablet,delayed release (/EC) Discontinued 81 mg PO DAILY December 17, 2024 12:38pm January 12, 2025 3:55pm atorvastatin 20 mg oral tablet (5 sources) HMG-CoA Reductase Inhibitor Start: 03-24-2020 End: 06-09-2020 take 1 tablet by mouth at bedtime Atorvastatin 20 mg tablet Discontinued 20 mg PO AT BEDTIME 30 March 24, 2020 1:00am June 09, 2020 10:38am 24 hr dilTIAZem hydrochloride 120 mg extended release oral capsule (20 sources) Calcium Channel Prisca Start: 07-24-2018 End: 01-12-2025 take 1 capsule by mouth once daily Diltiazem Hcl 120 mg capsule,extended release 24hr Discontinued 120 mg PO DAILY 30 2 December 17, 2024 12:40pm January 12, 2025 3:55pm Flucelvax Quad (flu vac qs (6 ms up) CD) 60 mcg (15 mcg x (1 source) Start: 02-01-2021 End: 02-01-2021 inject 15 ug by intramuscular injection once Flucelvax Quad (flu vac qs (6 ms up) CD) 60 mcg (15 mcg x Discontinued 60 MCG IM ONCE 0.5 February 01, 2021 3:45pm February 01, 2021 4:17pm gemfibrozil 600 mg oral tablet (20 sources) Peroxisome Proliferator Receptor alpha Agonist Start: 06-09-2020 End: 01-12-2025 take 1 tablet by mouth twice daily Gemfibrozil 600 mg tablet Discontinued 600 mg PO TWICE A DAY 60 2 December 17, 2024 12:40pm January 12, 2025 3:55pm Start: 07-09-2018 End: 03-22-2020 take 1 tablet by mouth twice daily Gemfibrozil 600 mg tablet Discontinued 600 mg PO TWICE A DAY 180 September 07, 2018 10:31am May 24, 2019 11:46am 90 days if possible, pt [place] hydrOXYzine hydrochloride 25 mg oral tablet (10 sources) Antihistamine Start: 03-22-2021 End: 09-07-2021 take 1 tablet by mouth three times daily as needed Hydroxyzine Hcl 25 mg tablet Discontinued 25 mg PO THREE TIMES A DAY as needed for panic attack(s) 90 April 11, 2021 7:03pm September 07, 2021 3:29pm meloxicam 15 mg oral tablet (4 sources) Nonsteroidal Anti-inflammatory Drug Start: 09-21-2021 End: 08-23-2022 take 1 tablet by mouth once daily as needed for pain Meloxicam 15 mg tablet Discontinued 15 mg PO DAILY as needed for back pain 90 September 21, 2021 12:00am August 23, 2022 3:49pm 24 hr nicotine 0.875 mg/hr transdermal system (5 sources) Cholinergic Nicotinic Agonist Start: 04-11-2021 End: 09-07-2021 apply 1 dose transdermal route every twenty-four hours Nicotine 21 mg/24 hr patch 24 hour Discontinued 1 NMA TD Q24H 28 April 11, 2021 1:00am September 07, 2021 3:29pm Start: 04-11-2021 End: 09-07-2021 apply 1 dose transdermal route every twenty-four hours Nicotine Discontinued 1 PATCH TD Q24H April 11, 2021 1:00am September 07, 2021 3:29pm traZODone hydrochloride 50 mg oral tablet (10 sources) Serotonin Reuptake Inhibitor Start: 03-22-2021 End: 09-07-2021 take 1 tablet by mouth at bedtime as needed Trazodone 50 mg tablet Discontinued 50 mg PO AT BEDTIME as needed for insomnia 30 April 11, 2021 7:15pm September 07, 2021 3:30pm 24 hr venlafaxine 150 mg extended release oral capsule (10 sources) Serotonin and Norepinephrine Reuptake Inhibitor Start: 04-11-2021 End: 09-07-2021 take 1 capsule by mouth once daily Venlafaxine 150 mg capsule,extended release 24hr Discontinued 150 mg PO DAILY 60 April 11, 2021 7:02pm September 07, 2021 3:30pm Start: 03-22-2021 End: 04-11-2021 Venlafaxine 37.5 mg capsule, extended release 24hr Discontinued 37.5 mg PO DAILY 60 March 22, 2021 1:00am April 11, 2021 7:04pm Take 1 cap daily x 1 week then increase to 2 tablets Problems Active Problems Problem Classification Problem Date Documented Date Episodic/Chronic Anxiety disorders (10 sources) Generalized anxiety disorder; Translations: [Generalized anxiety disorder] 03-22-2021 Chronic Cardiac dysrhythmias (18 sources) Palpitations; Translations: [Palpitations] Episodic Coronary atherosclerosis and other heart disease (11 sources) Coronary atherosclerosis; Translations: [Atherosclerotic heart disease of lime coronary artery without angina pectoris] Onset: Chronic Comment on above: Mild, diffuse <30% i n LAD per [facility] 07/24/2018 Diabetes mellitus without complication (5 sources) Hyperglycemia; Translations: [Hyperglycemia, unspecified] 11-03-2020 Episodic Disorders of lipid metabolism (9 sources) Hyperlipidemia; Translations: [Hyperlipidemia, unspecified] Chronic Fluid and electrolyte disorders (5 sources) Hypokalemia; Translations: [Hypokalemia] 02-01-2021 Episodic Immunizations and screening for infectious disease (10 sources) Needs influenza immunization; Translations: [Encounter for immunization] 02-01-2021 Episodic Nonspecific chest pain (9 sources) Chest pain; Translations: [Chest pain, unspecified] Onset: 5 11-17-2020 Episodic Other congenital anomalies (5 sources) Congenital anomaly of eye; 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, unspecified] 11-03-2020 Chronic Other connective tissue disease (1 source) Musculoskeletal pain; Translations: [Myalgia, other site] 10-13-2023 Episodic Other connective tissue disease (2 sources) Myalgia, other site; Translations: [Myalgia, other site] Onset: Episodic Other lower respiratory disease (5 sources) Dyspnea on exertion; Translations: [Shortness of breath] 07-28-2018 Episodic Other non-traumatic joint disorders (3 sources) Pain in right shoulder; Translations: [Right shoulder pain] 01-03-2023 Episodic Other nutritional; endocrine; and metabolic disorders (5 sources) Body mass index 30+ - obesity; Translations: [Body mass index (BMI) 31.0-31.9, adult] 05-27-2019 Chronic Other screening for suspected conditions (not mental disorders or infectious disease) (15 sources) Electrocardiogram abnormal; Translations: [Abnormal electrocardiogram [ECG] [EKG]] 01-11-2020 Episodic Residual codes; unclassified (5 sources) Obstructive sleep apnea syndrome; Translations: [Obstructive sleep apnea (adult) (pediatric)] 09-08-2019 Chronic Comment on above: AHI 29.6 Treated wit h CPAP 9 cm of water Residual codes; unclassified (4 sources) Daytime somnolence; Translations: [Other hypersomnia] 01-11-2020 Chronic Residual codes; unclassified (1 source) Other hypersomnia; Translations: [Excessive daytime sleepiness] 01-11-2020 Chronic Residual codes; unclassified (5 sources) Insomnia; Translations: [Insomnia, unspecified] 03-22-2021 Episodic Residual codes; unclassified (7 sources) Family history of ischemic heart disease; Translations: [Family history of ischemic heart disease and other diseases of the circulatory system] 07-23-2018 Episodic Residual codes; unclassified (2 sources) Family history of ischemic heart disease and other diseases of the circulatory system; Translations: [Family history of ischemic heart disease and other diseases of the circulatory system] Onset: Episodic Spondylosis; intervertebral disc disorders; other back problems (9 sources) Chronic back pain ; Translations: [Dorsalgia, unspecified] 09-21-2021 Episodic Past or Other Problems Problem Classification Problem Date Documented Date Episodic/Chronic Residual codes; unclassified (5 sources) History of cardiac catheterization; Translations: [Other specified postprocedural states] Onset: 07-24-2018 07-24-2018 Episodic Comment on above: Normal LV size, wall motion,and systolic function; Perserved Left Ventricular systolic function with normal EDP; LVEF: by LV gram 65 %; Non obstructive coronary arteries: If pt transitions to exertional angina despite maximal medical therapy, will consider FFR of ostial LAD. PCI of ostial LAD would be somewhat problematic given proximity to [facility]. Results Test Name Value Interpretation Reference Range Facility Lipoprotein Aon 2025 Lipoprotein a [Moles/Vol] 12.0 nmol/L Normal <75.0 [facility] Comment on above: Order Comment: Test( s) 674150-[id number] (a) was developed and its performance characteristics determined by [employer]. It has not been cleared or approved by the Food and Drug Administration. Result Comment: Note : Values greater than or equal to 75.0 nmol/L may indicate an independent risk factor for CHD, but must be evaluated with caution when applied to non- populations due to the influence of genetic factors on Lp(a) across ethnicities. Performed at: [address] [id number] Rn Procedures: Yoseph Esteban PhD, Phone: [phone] Performed By: #### L 9640.6872, O209.7796, L500.9070, L500.8596 #### [facility] [place], [address] Anion gap in Serum or Plasma Ordered By: Vel Joseph on 01-12-2025 Anion gap [Moles/Vol] 13 mmol/L 09-02 [facility] BUN/creatinine ratioOrdered By: Vel Joseph on 01-12-2025 Urea nitrogen/Creatinine [Mass ratio] 11.5 mg/mg 02-07 [facility] Basic Metabolic Profile (BMP )on 01-12-2025 BUN/CRE 11.5 RATIO Normal 02-07 [facility] Comment on above: Performed By: #### L 3400.4600, L501.9985, L500.4100, L500.2500 #### [facility] [address] [place], [address] Calcium [Mass/Vol] 10.6 mg/dL Normal 7.6-11.0 [facility] Comment on above: Performed By: #### L 3400.4600, L501.9985, L500.4100, L500.2500 #### [facility] [address] [place], [address] Chloride [Moles/Vol] 101 mmol/L Normal 98-108 [facility] Comment on above: Performed By: #### L 3400.4600, L501.9985, L500.4100, L500.2500 #### [facility] [address] [place], [address] CO2 [Moles/Vol] 25.3 mmol/L Normal 21.0-32.0 [facility] Comment on above: Performed By: #### L 3400.4600, L501.9985, L500.4100, L500.2500 #### [facility] [address] [place], [address] Creatinine [Mass/Vol] 1.16 mg/dL Normal 0.70-1.20 [facility] Comment on above: Performed By: #### L 3400.4600, L501.9985, L500.4100, L500.2500 #### [facility] [address] [place], [address] GAP 13 Normal 5-15 [facility] Comment on above: Performed By: #### L 3400.4600, L501.9985, L500.4100, L500.2500 #### [facility] [address] [place], [address] GFR/1.73 sq M.predicted among non-blacks MDRD (S/P/Bld) [Vol rate/Area] 84 mL/min/{1.73_m2} Normal >60 [facility] Comment on above: Result Comment: mL/m in/1.73m2 CKD-EPI Creatinine Equation (2020) Performed By: #### L 3400.4600, L501.9985, L500.4100, L500.2500 #### [facility] [address] [place], [address] Glucose [Mass/Vol] 79 mg/dL Normal 70-99 [facility] Comment on above: Performed By: #### L 3400.4600, L501.9985, L500.4100, L500.2500 #### [facility] [address] [place], [address] Potassium [Moles/Vol] 4.2 mmol/L Normal 3.3-5.1 [facility] Comment on above: Result Comment: Hemo lysis present, Results??could be affected. ?? Performed By: #### L 3400.4600, L501.9985, L500.4100, L500.2500 #### [facility] [address] [place], [address] Sodium [Moles/Vol] 139 mmol/L Normal 133-145 [facility] Comment on above: Performed By: #### L 3400.4600, L501.9985, L500.4100, L500.2500 #### [facility] [address] [place], [address] Urea nitrogen [Mass/Vol] 13 mg/dL Normal 4-19 [facility] Comment on above: Performed By: #### L 3400.4600, L501.9985, L500.4100, L500.2500 #### [facility] [address] [place], [address] Calculated very low density lipoprotein (VLDL) cholesterol measurementOrdered By: Vel Joseph on 01-12-2025 Calculated very low density lipoprotein (VLDL) cholesterol measurement 42 mg/dL High 5-40 [facility] Carbon dioxide, total [Moles /volume] in Central venous bloodOrdered By: Vel Joseph on 01-12-2025 CO2 [Moles/Vol] 25.3 mmol/L 21.0-32.0 [facility] Cardiology Visit Reporton Cardiology Visit Report [facility] [address] [place] [address] OFFICE VISIT Date of Service: 01/12/25 MR#: [id number] Acct: [id number] Name: RICK MENDOZA Rep #: [id number] : 1990 Provider: ROSI hinojosa Age/Sex: 34/M [place] [facility] [place] Status: Signed HPI HPI History of Present Illness Details: This is a [id number]-old male who presents today for an outpatient cardiovascular follow-up of a history of underlying CAD (nonangiographically significant/nonobstructi ve), hyperlipidemia, palpitations, bradycardia, superimposed upon obstructive sleep apnea. He acknowledges infrequent, sharp chest discomfort. This is most noted at rest and left side of his chest. He denies palpitations or bilateral lower extremity edema. He denies shortness breath activity, shortness of breath at rest, orthopnea, cough, or PND. He denies lightheadedness, dizziness, near-syncope, syncope, weakness, or fatigue. Intake Vital Signs 01/03/23 10:05 01/12/25 15:09 Height 6 ft 6 ft Weight: 210 lb BMI 28.5 BP 123/86 H Blood Pressure Location Lt brachial Position Sitting Respiration 16 Pulse 58 L Pulse Source NIBP Intake Visit Reasons: OVERDUE FU Urgent Care Required: No Accompanied by: Father Is patient in pain?: No Allergies No Known Allergies Allergy (Verified 01/12/25 15:23) Ejection fraction %: 65 Have you fallen in the past year?: No PFSH Medical History Right shoulder pain Lumbar radiculopathy Anxiety and depression Insomnia Generalized anxiety disorder with panic attacks Flu vaccine need Screening for thyroid disorder Hypokalemia Palpitations COVID-19 Chronic back pain Eye abnormality Screening for HIV (human immunodeficiency virus) Hyperglycemia Hyperlipemia Atherosclerotic heart disease of lime coronary artery without angina pectoris [place] (obstructive sleep apnea) Excessive daytime sleepiness Shortened FL interval Abnormal EKG Chest pain Family history of ischemic heart disease Bradycardia Surgical History History of left heart catheterization [...] caffeine: No ROS Const Const: Negative for fatigue or weakness Eyes Eyes: Negative for change in vision ENT ENT: Negative for dizziness or balance problems Cardio Chest Pain: Yes Frequency: other (infrequently) Character: sharp (slightly sharp) Onset: at rest Location: left chest Palpitations: No Edema: None Muscle aches with walking: None Resp Respiratory: Negative for SOB with activity, SOB at rest or SOB orthopnea SOB lying down GI GI: Negative nausea or heartburn : Negative for hematuria or frequent nighttime urination/ nocturia Musc Musc: Negative for balance problems Skin Skin: Negative non-healing lesions or rash Neuro Neuro: Negative for dizziness, lightheadedness, near syncope, syncope or weakness Endo Endo: Negative for fatigue Allergy Allergy/Immunology: Negative for rash Cardiology Exam Const Appearance: cooperative, healthy appearing, comfortable and no acute distress Nutritional Appearance: average body habitus and well nourished Orientation: alert, awake and oriented x3 Head Head: normal to inspection Ears: hearing grossly normal bilaterally Nose: external nose normal Face and Sinus: face symmetric Mouth: moist mucous membranes Eyes General: appearance normal, both eyes and all related structures Eyelids: eyelids normal EOM: EOM intact bilaterally Neck Neck: normal visual inspection and no JVD Carotids: normal carotid upstroke Chest Chest inspection: normal inspection of the chest, symmetric chest movement and normal respiratory effort; Negative cough Auscultation: Bilateral: Clear to Auscultation Cardio Rate: regular rate Rhythm: regular rhythm (more content not included)... Normal [facility] Chloride assayOrdered By: Yumiko Joseph on 01-12-2025 Chloride [Moles/Vol] 101 mmol/L 98-108 [facility] Glomerular filtration rate ( GFR) estimation/1.73 sq m using serum, plasma, or whole bOrdered By: Vel Joseph on 01-12-2025 GFR/1.73 sq M.predicted among non-blacks MDRD (S/P/Bld) [Vol rate/Area] 84 mL/min/{1.73_m2} >60 [facility] Comment on above: mL/min/1.73m2 CKD-EP I Creatinine Equation (2020) Hemoglobin A1con 01-12-2025 HbA1c (Bld) [Mass fraction] 5.4 % Normal <=5.6 [facility] Comment on above: Result Comment: Norm al < 5.7 % Prediabetic 5.7 - 6.4 % Diabetic >or= 6.5 % Please note range changes. Performed By: #### L 3400.4600, L501.9985, L500.4100, L500.2500 #### [facility] [address] [place], [place], [id number] Hemoglobin A1c percentageOrd ered By: Vel Joseph on 01-12-2025 HbA1c (Bld) [Mass fraction] 5.4 % <5.7 [facility] Comment on above: Normal < 5.7 % Predi abetic 5.7 - 6.4 % Diabetic >or= 6.5 % Please note range changes. LDL calc ser/plasOrdered By: Vel Joseph on 01-12-2025 Cholesterol in LDL [Mass/Vol] 126 mg/dL [facility] Comment on above: Picvntzotj=461-501 m g/dL & Higher Cvnx=503 mg/dL or greaterFriedwald Equation for LDL-C Lipid Profileon 01-12-2025 CHOL:HDL 4.98 Normal [facility] Comment on above: Performed By: #### L 3400.4600, L501.9985, L500.4100, L500.2500 #### [facility] [address] [place], [place], [id number] ([address]) Cholesterol [Mass/Vol] 211 mg/dL High <=200 [facility] Comment on above: Result Comment: Chol esterol level, Desirable <200 mg/dL Borderline high cholesterol 200-239 mg/dL High cholesterol >=240 mg/dL Recommendations of the NCEP Adult Treatment Panel for the following risk-cutoff thresholds for the [place] population. Performed By: #### L 3400.4600, L501.9985, L500.4100, L500.2500 #### [facility] [address] [place], [address] Cholesterol in HDL [Mass/Vol] 42 mg/dL Normal [facility] Comment on above: Result Comment: Barbara onal Cholesterol Education Program (NCEP) guidelines: <40 mg/dL: Low HDL-cholesterol (major risk factor for CHD) >= 60 mg/dL: High HDL-cholesterol (negative risk factor for CHD) HDL-cholesterol is affected by a number of factors, e.g. smoking, exercise, hormones, sex and age. Performed By: #### L 3400.4600, L501.9985, L500.4100, L500.2500 #### [facility] [address] [place], [address] Cholesterol in LDL [Mass/Vol] 126 mg/dL Normal [facility] Comment on above: Result Comment: Bord mghagw=115-835 mg/dL Higher Dlef=142 mg/dL or greater Friedwald Equation for LDL-C Performed By: #### L 3400.4600, L501.9985, L500.4100, L500.2500 #### [facility] [address] [place], [address] Cholesterol in VLDL [Mass/Vol] 42 mg/dL High 5-40 [facility] Comment on above: Performed By: #### L 3400.4600, L501.9985, L500.4100, L500.2500 #### [facility] [address] [place], [address] Triglyceride [Mass/Vol] 211 mg/dL High [facility] Comment on above: Result Comment: The drugs N-Acetylcysteine and Metamizole may falsely depress this assay. Normal range: <150 mg/dL Borderline High: 150-199 mg/dL High: 200-499 mg/dL Very High: >500 mg/dL Performed By: #### L 3400.4600, L501.9985, L500.4100, L500.2500 #### [facility] [address] [place], [address] Lipoprotein a [Mass/Vol]Orde red By: Vel Joseph on 01-12-2025 Lipoprotein a [Moles/Vol] 12.0 nmol/L <75.0 [facility] Comment on above: Note: Values greater than or equal to 75.0 nmol/L may indicate an independent risk factor for CHD, but must be evaluated with caution when applied to non- populations due to the influence of genetic factors on Lp(a) across ethnicities.Performed at: - [facility] [id number] Director: Yoseph Esteban PhD, Phone: [phone] Potassium measurement (mass/ volume)Ordered By: Vel Joseph on 01-12-2025 Potassium (Unsp spec) [Mass/Vol] 4.2 mmol/L 3.3-5.1 [facility] Comment on above: Hemolysis present, R esults could be affected. Screening total cholesterol/ high density lipoprotein (HDL) cholesterol ratioOrdered By: Vel Joseph on 01-12-2025 Cholesterol.total/Chol esterol in HDL [Mass ratio] 4.98 {ratio} [facility] Serum creatinine measurement (mass/volume)Ordered By: Vel Joseph on 01-12-2025 Creatinine [Mass/Vol] 1.16 mg/dL 0.70-1.20 [facility] Serum glucose measurement (m ass/volume)Ordered By: Vel Joseph on 01-12-2025 Glucose [Mass/Vol] 79 mg/dL 70-99 [facility] Serum or plasma calcium kevin urement (mass/volume)Ordered By: Vel Joseph on 01-12-2025 Calcium [Mass/Vol] 10.6 mg/dL 7.6-11.0 [facility] Serum or plasma cholesterol in HDL measurement (mass/volume)Ordered By: Vle Joseph on 01-12-2025 Cholesterol in HDL [Mass/Vol] 42 mg/dL >40 [facility] Comment on above: National Cholesterol Education Program (NCEP) guidelines:<40 mg/dL: Low HDL-cholesterol (major risk factor for CHD)>= 60 mg/dL: High HDL-cholesterol (negative risk factor for CHD)HDL-cholesterol is affected by a number of factors, e.g. smoking, exercise, hormones, sex and age. Serum or plasma cholesterol measurement (mass/volume)Ordered By: Vel Joseph on 01-12-2025 Cholesterol [Mass/Vol] 211 mg/dL High <201 [facility] Comment on above: Cholesterol level, D esirable <200 mg/dLBorderline high cholesterol 200-239 mg/dLHigh cholesterol >=240 mg/dLRecommendations of the NCEP Adult Treatment Panel for the following risk-cutoff thresholds for the [place] population. Serum or plasma urea nitroge n measurement (mass/volume)Ordered By: Vel Joseph on 01-12-2025 Urea nitrogen [Mass/Vol] 13 mg/dL 4-19 [facility] Sodium levelOrdered By: Vel Joseph on 01-12-2025 Sodium [Moles/Vol] 139 mmol/L 133-145 [facility] Triglycerides measurementOrd ered By: Vel Joseph on 01-12-2025 Triglyceride [Mass/Vol] 211 mg/dL High <199 [facility] Comment on above: The drugs N-Acetylcy steine and Metamizole may falsely depress this assay. Normal range: <150 mg/dLBorderline High: 150-199 mg/dLHigh: 200-499 mg/dLVery High: >500 mg/dL Basophil percentageOrdered B y: Vel Joseph on 08-24-2022 Bilirubin [Mass/Vol] 0.60 mg/dL 0.20-1.00 [facility] Comment on above: For patients on eltr ombopag therapy, use of Dimension [place] TBIL is not recommended. Cholesterol [Mass/Vol] 166 mg/dL <200 [facility] Comment on above: <200 mg/dL Desirable 200-240 mg/dL Borderline >240 mg/dL High Risk Protein [Mass/Vol] 7.3 g/dL 6.4-8.2 [facility] Triglyceride [Mass/Vol] 227 mg/dL <199 [facility] Comment on above: The drugs N-Acetylcy steine and Metamizole may falsely depress this assay.Serum Triglycerides Reference Interval Normal <150 mg/dL Borderline high 150 - 199 mg/dL High 200 - 499 mg/dL Very High > or = 500 mg/dL Direct bilirubinOrdered By: Vel Joseph on 08-24-2022 Bilirubin.direct [Mass/Vol] 0.12 mg/dL 0.00-0.30 [facility] - Chemistry and C hemistry - challengeOrdered By: Vel Joseph on 08-24-2022 ALP [Catalytic activity/Vol] 44 U/L 45-117 [facility] ALT [Catalytic activity/Vol] 30 U/L 16-61 [facility] Globulin (S) [Mass/Vol] 3.5 g/dL 2.2-4.2 [facility] Serum or plasma albumin kevin urement (mass/volume)Ordered By: Vel Joseph on 08-24-2022 Albumin [Mass/Vol] 3.8 g/dL 3.2-5.0 [facility] Serum or plasma cholesterol in HDL measurement (mass/volume)Ordered By: Vel Joseph on 08-24-2022 Cholesterol in HDL [Mass/Vol] 36 mg/dL >40 [facility] Comment on above: The drugs N-Acetylcy steine and Metamizole may falsely depress this assay. Reference Range HDL <40 mg/dL Low HDL Cholesterol HDL >or= 60 mg/dL High HDL Cholesterol Serum or plasma cholesterol in VLDL measurement (mass/volume)Ordered By: Vel Joseph on 08-24-2022 Cholesterol in VLDL [Mass/Vol] 45 mg/dL 5-40 [facility] Serum or plasma low density lipoprotein (LDL) cholesterol measurement (mass/volume)Ordered By: Vel Joseph on 08-24-2022 Cholesterol in LDL [Mass/Vol] 85 mg/dL 0-130 [facility] Thin prep Papanicolaou smear with manual screeningOrdered By: Vel Joseph on 08-24-2022 Thin prep Papanicolaou smear with manual screening 21 U/L 15-37 [facility] Basophil percentageon 2021 Bilirubin [Mass/Vol] 0.30 mg/dL 0.20-1.00 [facility] Work Phone: Comment on above: For patients on eltr ombopag therapy, use of Dimension [place] TBIL is not recommended. Cholesterol [Mass/Vol] 207 mg/dL <200 [facility] Work Phone: Comment on above: <200 mg/dL Desirable 200-240 mg/dL Borderline >240 mg/dL High Risk Protein [Mass/Vol] 7.8 g/dL 6.4-8.2 [facility] Work Phone: Triglyceride [Mass/Vol] 409 mg/dL [facility] Work Phone: Comment on above: The drugs N-Acetylcy steine and Metamizole may falsely depress this assay. TRIGLYCERIDE IS GREATER THAN 400 mg/dL. LDL RESULT IS INVALID AND WILL NOT BE REPORTED.Serum Triglycerides Reference Interval Normal <150 mg/dL Borderline high 150 - 199 mg/dL High 200 - 499 mg/dL Very High > or = 500 mg/dL Direct bilirubinon Bilirubin.direct [Mass/Vol] 0.08 mg/dL 0.00-0.30 [facility] Work Phone: Laboratory - Chemistry and C hemistry - challengeon 09-11-2021 ALP [Catalytic activity/Vol] 59 U/L 45-117 [facility] Work Phone: ALT [Catalytic activity/Vol] 29 U/L 16-61 [facility] Work Phone: Globulin (S) [Mass/Vol] 3.8 g/dL 2.2-4.2 [facility] Work Phone: Serum or plasma albumin kevin urement (mass/volume)on 09-11-2021 Albumin [Mass/Vol] 4.0 g/dL 3.2-5.0 [facility] Work Phone: Serum or plasma cholesterol in HDL measurement (mass/volume)on 09-11-2021 Cholesterol in HDL [Mass/Vol] 33 mg/dL [facility] Work Phone: Comment on above: The drugs N-Acetylcy steine and Metamizole may falsely depress this assay. Reference Range HDL <40 mg/dL Low HDL Cholesterol HDL >or= 60 mg/dL High HDL Cholesterol Serum or plasma cholesterol in VLDL measurement (mass/volume)on 09-11-2021 Cholesterol in VLDL [Mass/Vol] [facility] Work Phone: Comment on above: Test not performed Serum or plasma low density lipoprotein (LDL) cholesterol measurement (mass/volume)on 09-11-2021 Cholesterol in LDL [Mass/Vol] [facility] Work Phone: Comment on above: Test not performed Thin prep Papanicolaou smear with manual screeningon 09-11-2021 Thin prep Papanicolaou smear with manual screening 19 U/L 15-37 [facility] Work Phone: Comment on above: Slight Hemolysis, Re sult may be falsely increased. PROGRESSon 07-20-2019 PROGRESS HNO ID: [id number] Author: Cindy Cavazos Service: ? Author Type: Physician Pipe Bowls Paint Trimmer Type: Progress Notes Filed: 07/20/2019 4:35 PM [...] 's leftover amoxicillin x 3 pills. Identifies heart disease. Heart cath 08/03/18: Dr Abbe Hall for [...] MG CAPSULE 2. 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 Hall. See letter for discharge instructions: marco. Cindy Cavazos PA-C [facility] CNOVon 08-27-2018 CNOV Office Visit (PODIWS ) -------- RICK MENDOZA ([id number]) 1990 M Date Time Provider Department 08/27/18 10:45 AM BEATRICE ALLISON PODIWS During your visit today, we recorded the [...] in the past by a doctor in [place] who drained a water abscess and told [...] he has had water blisters [place]. Patient states he has been told in past that he has no cartilage in joint. PAIN EVALUATION 08/27/2018 Pain Level: 7 Pain Location: Foot-Left Description: Other: See comment patient unable to describe pain patient unable to describe pain Duration Amount of Time: 2 Duration Units: Years Frequency: Intermittent Intervention: Reposition;Relaxation No results found for: HBA1C PCP: Scott Hampton APRN.EMBALMER ASSISTANT PAST MEDICAL HISTORY Diagnosis Date - Bradycardia [...] Azucena Velasco RN Referring Provider: BEATRICE ALLISON [[id number]] Allergies As of Date: 08/27/2018 (No Known [...] in about 1 month (around 09/24/2018) for tulioZully LOS history recorded Follow-up and Disposition History Recorded Encounter Status:Closed by BEATRICE ALLISON DPM on 08/28/18 [facility] PROGRESSon 08-27-2018 PROGRESS HNO ID: [id number] Author: Azucena Velasco RN Service: ? Author Type: ? Type: Progress Notes Filed: 08/28/2018 8:02 PM Note Text: Per Dr. Allison, Jocelynz was provided with two dancer's pads and instructed/educated in its application, wear, and care. All questions were answered, and patient was able to demonstrate competence with the necessary skills to utilize the above equipment. Azucena Velasco RN [facility] PROGRESS HNO ID: [id number] Author: Beatrice Allison Service: ? Author Type: [...] he has had water blisters drained in [place]. Patient states he has been told in past that he has no cartilage in joint. PAIN EVALUATION 08/27/2018 Pain Level: 7 Pain Location: Foot-Left Description: Other: See comment patient unable to describe pain patient unable to describe pain Duration Amount of Time: 2 Duration Units: Years Frequency: Intermittent Intervention: Reposition;Relaxation No results found for: HBA1C PCP: Scott Hampton APRN.EMBALMER ASSISTANT PAST MEDICAL HISTORY Diagnosis Date - Bradycardia [...] on exam today EJ Tamayo DPM [facility] PROGRESS HNO ID: [id number] Author: Azucena Velasco RN Service: ? Author [...] in the past by a doctor in [place] who drained a water abscess and told patient he was bone on bone on L 1st MTPJ. He states he has had abscess drained several times. Pain is much worse when he wears a closed shoe so he has been wearing sandals. He has new xrays to review. [facility] PROGRESS HNO ID: [id number] Author: Ellen An (Rt) Service: ? Author Type: Assembler Metal Furniture Type: Progress Notes Filed: 08/27/2018 10:28 AM [...] RT Juve August 27, 2018 10:21 AM [facility] XR FOOT 3V AP/LAT/OBL LTon 0 08-27-2018 [...] No radiographic evidence of acute osseous abnormality. Personal Secretary: PSCB Transcribe Date/Time: Aug 27 2018 11:31A Dictated by : DANIEL HOLCOMB MD This examination was interpreted and the report reviewed and electronically signed by: DANIEL HOLCOMB MD on Aug 27 2018 11:32AM EST [id number] [facility]on 07-29-2018 [facility] RICK MEND[facility]ZA ([id number]) 1990 M Date Time Provider Department 07/29/18 3:20 PM SCOTT HAMPTON (KAT) FAMPWS During your visit today, we recorded the following information about you: Pulse Respiration Blood pressure Weight 58/minute 16/minute 90/64 99.2 kg Height 1.778 m Scott Hampton APRN.KAT 07/30/2018 7:41 AM Signed consu07/29/2018 Patient presents with: Establish Care SUBJECTIVE: This is a 28 year old that is here today for Above Complaints. Was in [facility] last week for heart cath. Reports he had chest pain and was kept overnight. Reports hx of heart problems and was seeing heart group in [place], [place]. Also reports triglycerides elevated in the 600 and was placed on gemfibrozil. Also diagnosed with TATIANA and will be haivng pap titration at [facility]. Wants referral to podiatry, opthomolgy, and [...] 58 Resp 16 Ht 177.8 cm (5' 10) Wt 99.2 kg (218 lb 12.8 oz) [...] one year. 2. 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 TATIANA (obstructive sleep apnea) [...] - follow-up in 3 months Scott Podlogar, TESFAYE Prescription instructions reviewed with patient as applicable. 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, unspecified vessel or lesion type (HCC) [I25.119] TATIANA (obstructive sleep apnea) [G47.33] Diminished night vision [H53.69] Left foot pain [M79.672] Dental caries [K02.9] Hypertriglyceridemia [E78.1] Order(s):CONSULT TO OPHTHALMOLOGY [9024] Order #: [id number]: 1 CONSULT TO DENTISTRY [002238] Order #: [id number]: 1 CONSULT TO PODIATRY [9034] Order #: [id number]: 1 Prescriptions as of 07/29/2018 Sig: GEMFIBROZIL 600 MG TABLET Take 600 mg by mouth twice da* ASPIRIN 81 MG TABLET,DELAYED * Take 81 mg by mouth once lizbeth* DILTIAZEM 120 MG TABLET Take 120 mg by mouth once tiffanie* Problem List As Of Date: 07/29/2018 (None) Follow-up and Disposition History Recorded Encounter Status:Closed by SCOTT HAMPTON CNP on 07/30/18 [facility] PROGRESSon 07-29-2018 PROGRESS HNO ID: [id number] Author: Scott Price) Podlogar Service: ? Author Type: Nurse Practitioner Type: Progress Notes Filed: 07/30/2018 7:41 AM Note Text: consu07/29/2018 Patient presents with: Establish Care SUBJECTIVE: This is a 28 year old that is here today for Above Complaints. Was in [facility] last week for heart cath. Reports he had chest pain and was kept overnight. Reports hx of heart problems and was seeing heart group in [place], [place]. Also reports triglycerides elevated in the 600 and was placed on gemfibrozil. Also diagnosed with TATIANA and will be haivng pap titration at [facility]. Wants referral to podiatry, opthomolgy, and [...] 58 Resp 16 Ht 177.8 cm (5' 10) Wt 99.2 kg (218 lb 12.8 oz) [...] one year. 2. 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 TATIANA (obstructive sleep [...] gemfibrozil - follow-up in 3 months Scott Hampton, CARD MOUNTER.EMBALMER ASSISTANT Prescription instructions reviewed with patient as applicable. Patient advised if symptoms do not improve or if symptoms worsen sooner, to contact their primary care physician. Potential red flag symptoms discussed with the patient. Reviewed appropriate action plan to take if red flag symptoms occur. Patient agreeable to treatment plan. [facility] Vital Signs Date Time Vital Sign Value Performing Clinician Aixa jeronimo 01-12-2025 15:09-0400 Body height 182.[address] Jerrod Chase MD Work Phone: [facility] 01-12-2025 15:09-0400 Body mass index (BMI) [Ratio] 28.5 kg/m2 Dr. Jerrod Chase MD Work Phone: [facility] 01-12-2025 15:09-0400 Body weight 95.[address] Jerrod Chase MD Work Phone: [facility] 01-12-2025 15:09-0400 Diastolic blood pressure 86 mm[Hg] Dr. Jerrod Chase MD Work Phone: [facility] 01-12-2025 15:09-0400 Heart rate 58 /min Dr. Jerrod Chase MD Work Phone: [facility] 01-12-2025 15:09-0400 Respiratory rate 16 /min Dr. Jerrod Chase MD Work Phone: [facility] 01-12-2025 15:09-0400 Systolic blood pressure 123 mm[Hg] Dr. Jerrod Chase MD Work Phone: [facility] 08-23-2022 15:50-0400 Body weight 98.[address] Jerrod Chase Work Phone: [facility] 08-23-2022 15:50-0400 Diastolic blood pressure 70 mm[Hg] Dr. Jerrod Chase Work Phone: [facility] 08-23-2022 15:50-0400 Heart rate 68 /min Dr. Jerrod Chase Work Phone: [facility] 08-23-2022 15:50-0400 Respiratory rate 16 /min Dr. Jerrod Chase Work Phone: [facility] 08-23-2022 15:50-0400 Systolic blood pressure 110 mm[Hg] Dr. Jerrod Chase Work Phone: [facility] 08-23-2022 13:32-0400 Body height 182.[address] Jerrod Chase Work Phone: [facility] 09-07-2021 15:24-0400 Body height 182.[address] Jerrod Chase Work Phone: [facility] Work Phone: 09-07-2021 15:24-0400 Body mass index (BMI) [Ratio] 28.7 kg/m2 Dr. Jerrod Chase Work Phone: [facility] Work Phone: 09-07-2021 15:24-0400 Body weight 96.[address] Jerrod Chase Work Phone: [facility] Work Phone: 09-07-2021 15:24-0400 Diastolic blood pressure 68 mm[Hg] Dr. Jerrod Chase Work Phone: [facility] Work Phone: 09-07-2021 15:24-0400 Heart rate 79 /min Dr. Jerrod Chase Work Phone: [facility] Work Phone: 09-07-2021 15:24-0400 Respiratory rate 16 /min Dr. Jerrod Chase Work Phone: [facility] Work Phone: 09-07-2021 15:24-0400 Systolic blood pressure 107 mm[Hg] Dr. Jerrod Chase Work Phone: [facility] Work Phone: Encounters Encounter Date Encounter Type Care Provider Facility Start: 02-18-2025 ambulatory Vel Joseph WAREHOUSE HAND Facility :[facility] Start: 01-12-2025 End: 01-12-[address] Jerrod Chase MD Work Phone: -Laboratory Start: 01-12-2025 End: 01-12-2025 Patient encounter procedure Vel Joseph WAREHOUSE HAND-C -Laboratory Work Phone: Start: 01-12-2025 End: 01-12-2025 Patient encounter procedure Vel Joseph WAREHOUSE HAND-C -[facility] Work Phone: Start: 01-12-2025 End: 01-12-[address] Jerrod Chase MD Work Phone: -[facility] Start: 01-12-2025 End: 01-12-2025 ambulatory Vel Joseph NP Facility:[facility] Start: 10-13-2023 End: 10-13-2023 Clinical Support Encounter Max Denton LMT Work Phone: [facility] Comment on above: Musculoskeletal pain (Primary Dx) Start: 10-13-2023 ambulatory SELF SELF Facility:[facility] Start: 08-24-2022 End: 08-24-[address] Jerrod Chase Work Phone: [facility] Work Phone: Start: 08-24-2022 End: 08-24-[address] Jerrod Chase Work Phone: [facility] Start: 08-23-2022 End: 08-23-[address] Jerrod Chase Work Phone: [facility] Start: 09-11-2021 End: 09-11-[address] Jerrod Chase Work Phone: [facility] Start: 09-07-2021 End: 09-07-[address] Jerrod Chase Work Phone: [facility] Plan of Treatment Date Care Activity Detail Author Start: 01-12-2025 End: 01-12-2025 Evaluation of diagnostic study results [facility] Start: 12-21-2023 Influenza vaccination INFLUENZ A VACCINE (Season Ended) [facility] Start: 12-20-2022 COVID-19 VACCINE ( season) COVID-19 VACCINE ( season) [facility] Start: 01-13-2007 Hepatitis B vaccination HEP B VACCINE (1 of 3 - 19+ 3-dose series) [facility] Start: 01-13-2007 Third diphtheria, tetanus and acellular pertussis (DTaP) vaccination TDAP (ADULT) [facility] Start: 01-13-2003 HIV screening HIV SCREENING DISCUSSION [facility] Start: 1990 Hepatitis C screening HEPATITI S C VIRUS SCREENING [facility] Start: 1990 Tetanus vaccination TETANUS [facility] CT for calcium scori ng WO contrast and CTA W contrast IV Heart and coronary arteries [facility] Immunizations Immunization Date Immunization Notes Care Provider Fa cility 02-09-2018 influenza, injectabl e, quadrivalent, preservative free [facility] 02-09-2018 influenza, seasonal, injectable Dr. Jerrod Chase Work Phone: [facility] Payers Date Payer Category Payer Self-pay [id number] Medicaid [id number] 2018 Unknown [employer] / [employer] [id number] 2018-Present [address] [place] [address] [id number] 2018 Unknown [id number] 1988 Unknown [id number] Medicaid [id number] Unknown [employer] DO NOT USE [id number] Unknown [employer] NOT [employer] [id number] Unknown [id number] Unknown [id number] Unknown [id number] Social History Date Type Detail Facility Start: 09-07-2021 End: 08-23-2022 Tobacco smoking status PRIS Unknown if ever smoked [facility] Start: 07-24-2018 Cigarettes [facility] Start: 1990 Sex Assigned At Male [facility] Start: 1990 Sex assigned at Not on file [facility] Gender identity Not on file [facility] Start: 01-03-2023 Tobacco smoking stat us PRIS Ex-smoker (finding) [facility] Evaluation note 01-12-2025 Note Date & Type Note Facility 01-12-2025 Evaluation note Diagnosis Onset Date Resolution 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 January 12, 2025 2:37pm Bradycardia chronic December 2:37pm Chest pain chronic December 2:37pm Family history of ischemic heart disease chronic January 12, 2025 2:37pm Hyperlipemia chronic January 122024 2:37pm Palpitations chronic January 122024 2:37pm [facility] Work Phone: Progress note 01-12-2025 Note Date & Type Note Facility 01-12-2025 Progress note [facility] Progress note 01-12-2025 Note Date & Type Note Facility 01-12-2025 Progress note Note Date/Time January 12, 2025 4:08pm [facility] [address] [place] [address] OFFICE VISIT Date of Service: 01/12/25 MR#: [id number] Acct: [id number] Name: RICK MENDOZA Rep #: [id number] : 1990 Provider: ROSI Joseph Age/Sex: 34/M [facility] [facility] Status: Signed HPI HPI History of Present Illness Details: This is a 75-dz[age]gos[age]-old male who presents today for an outpatient cardiovascular follow-up of a history of underlying CAD (nonangiographically significant/nonobstructive), hyperlipidemia, palpitations, bradycardia, superimposed upon obstructive sleep apnea. He acknowledges infrequent, sharp chest discomfort. This is most noted at rest and left side of his chest. He denies palpitations or bilateral lower extremityedema. He denies shortness breath activity, shortness of breath at rest, orthopnea, cough, or PND. He denies lightheadedness, dizziness, near-syncope, syncope, weakness, or fatigue. Intake Vital Signs 01/03/23 10:05 01/12/25 15:09 Height 6 ft 6 ft Weight: 210 lb BMI 28.5 BP 123/86 H Blood Pressure Location Lt brachial Position Sitting Respiration 16 Pulse 58 L Pulse Source NIBP Intake Visit Reasons: OVERDUE FU Urgent Care Required: No Accompanied by: Father Is patient in pain?: No Allergies No Known Allergies Allergy (Verified 01/12/25 15:23) Ejection fraction %: 65 Have you fallen in the past year?: No PFSH Medical History Right shoulder pain Lumbar radiculopathy Anxiety and depression Insomnia Generalized anxiety disorder with panic attacks Flu vaccine need Screening for thyroid disorder Hypokalemia Palpitations COVID-19 Chronic back pain Eye abnormality Screening for HIV (human immunodeficiency virus) Hyperglycemia Hyperlipemia Atherosclerotic heart disease of lime coronary artery without angina pectoris TATIANA (obstructive sleep apnea) Excessive daytime sleepiness Shortened FL interval Abnormal EKG Chest pain Family history of ischemic heart disease Bradycardia Surgical History History of left heart catheterization [...] caffeine: No ROS Const Const: Negative for fatigue or weakness Eyes Eyes: Negative for change in vision ENT ENT: Negative for dizziness or balance problems Cardio Chest Pain: Yes Frequency: other (infrequently) Character: sharp (slightly sharp) Onset: at rest Location: left chest Palpitations: No Edema: None Muscle aches with walking: None Resp Respiratory: Negative for SOB with activity, SOB at rest or SOB orthopnea\SOB lying down GI GI: Negative nausea or heartburn : Negative for hematuria or frequent nighttime urination/ nocturia Musc Musc: Negative for balance problems Skin Skin: Negative non-healing lesions or rash Neuro Neuro: Negative for dizziness, lightheadedness, near syncope, syncope or weakness Endo Endo: Negative for fatigue Allergy Allergy/Immunology: Negative for rash Cardiology Exam Const Appearance: cooperative, healthy appearing, comfortable and no acute distress Nutritional Appearance: average body habitus and well nourished Orientation: alert, awake and oriented x3 Head Head: normal to inspection Ears: hearing grossly normal bilaterally Nose: external nose normal Face and Sinus: face symmetric Mouth: moist mucous membranes Eyes General: appearance normal, both eyes and all related structures Eyelids: eyelids normal EOM: EOM intact bilaterally Neck Neck: normal visual inspection and no JVD Carotids: normal carotid upstroke Chest Chest inspection: normal inspection of the chest, symmetric chest movement and normal respiratory effort; Negative cough Auscultation: Bilateral: Clear to Auscultation Cardio Rate: regular rate Rhythm: regular rhythm Heart sounds: S1 normal and S2 normal; Negative rub, gallop or murmur GI GI: normal to inspection Neuro General: patient alert, patient awake, patient oriented x3 and CN's II-XI intactbilaterally Skin Skin: no rashes or lesions noted Extremities Pulses: Normal: Right Posterior Tibial Pulse, Left Posterior Tibial Pulse, RightRadial Pulse and Left Radial Pulse Lower Extremity Edema: None: Bilateral Psych Psychological: normal affect Supplemental Info Supplemental Information Stress Test Report Date: 06-23-2020 Procedure: Exercise tolerance test Indications: Chest pain: CAD; PCI Consent: Per the patient Procedure: The patient exercised on a Vasiliy protocol for 9 minutes and 39 seconds completing stage III and 39 seconds of stage IV achieving a peak heart rate of 136 bpm (72% predicted maximal heart rate) with a peak blood pressure 150/84 mmHg and a peak MET capacity of approximately 11 MET's. The baseline ECG demonstrated sinus bradycardia. The peak exercise ECG demonstrated no obvious ECG changes. There were no cardiac dysrhythmias pretest, during exercise, or recovery. The functional capacity was considered good. The patient had chest discomfort at peak exercise with spontaneous resolution inrecovery. The examination was discontinued secondary to shortness of breath, fatigue, and leg discomfort. Impression: 1. Technically adequate (percent predicted maximal heart rate greater than 85%)exercise tolerance test 2. Peak exercise ECG with no obvious ECG changes 3. There were no cardiac dysrhythmias during exercise or recovery Transthoracic echocardiogram: 07-23-2018 Interpretation Summary The estimated ejection fraction is 65 %. Normal diastology for age. Trivial tricuspid valve insufficiency. Unable to estimate RV systolic pressure/pulmonary artery pressure due to technically difficult study. There is no comparison study available. The study was technically difficult. Contrast injection was performed. Stress echocardiogram: 08-27-2019 Interpretation Summary The estimated ejection fraction is 65 %. Normal, adequate, treadmill echocardiogram. Negative for ischemia by EKG and echocardiographic criteria. No arrhythmias noted. Appropriate blood pressure response to exercise.Average exercise capacity for age. Patient developed slight chest discomfort at 7 minutes 40 seconds into exercise which remained the same until 10 minutes and 3 seconds during exercise. No associated EKG or echocardiographic abnormalities noted. Test terminated due to dyspnea and chest discomfort. Final LVEF is 75%. Although the patient did not reach target heart rate, his rate-pressure product of [phone] made this an adequate test. Recommend clinical correlation or alternativemode of testing of corn occlusive disease and strongly suspected. No complications. Cardiac catheterization: 07-24-2018 CONCLUSIONS Normal LV size, wall motion,and systolic function Perserved Left Ventricular systolic function with normal EDP LVEF: by LV gram 65 % Non obstructive coronary arteries RECOMMENDATIONS Management as per referring [employer] Continue baby asa, d/c plavix, start cardizem CD 120mg po daily. If pt transitions to exertional angina despite maximal medical therayp, will consider FFR of ostial LAD. PCI of ostial LAD would be somewhat problematic given proximity to DIAG. Manual sheath removal. Risk factor modification CORONARY ANGIOGRAPHY DOMINANCE: Right Dominant LEFT HEART ASSESSMENT Left Ventricular Ejection Fraction: by LV Gram 65 % Normal LV wall motion Normal Left Ventricular systolic function Normal Left Ventricular End Diastolic Pressure LVEDP: 13 mmHg LEFT MAIN: Angiographically normal LEFT ANTERIOR DESCENDING ARTERY: PROX LAD: Mild luminal irregularities less than 30% DIAGONAL 1: Proximal - Angiographically normal CIRCUMFLEX ARTERY: Angiographically normal RIGHT CORONARY ARTERY: Angiographically normal RT PDA: Proximal - Angiographically normal Assessment and Plan Assessment and Plan (1) Atherosclerotic heart disease of lime coronary artery without angina pectoris: Status: Chronic Comment: Mild, diffuse <30% in LAD per [facility] 07/24/2018 Plan: Heart catheterization in July 2018 showed left main is angiographically normal,approximately D with less than 30% stenosis, proximal diagonal 1 is angiographically normal, LCx is angiographically normal, RCA is angiographicallynormal, and proximal RT PDA as angiographically normal. Given strong family history with his dad having history of bypass surgery and stenting and mild disease noted during heart catheterization, it was decided continue with aspirintherapy for primary prevention. He was asked to undergo repeat lipid and liver profile along with other risk stratification testing that includes coronary calcium score and lipoprotein a, and coronary CTA on account of his symptoms. He will continue gemfibrozil. Depending on results, further recommendation willbe made. (2) Palpitations: Status: Chronic Plan: Appears stable. He will continue diltiazem therapy. (3) Bradycardia: Status: Chronic Plan: Twelve-lead ECG on 01/12/2025 shows sinus bradycardia at 55 bpm, FL interval 148,QRS 88, QTc 378, and axis 12 degrees. There are no acute ST or T wave changes noted. His heart rate is well controlled today. We will continue to monitor. He will continue diltiazem. (4) Hyperlipemia: Status: Chronic Plan: Lipid panel on 08/24/2022 shows total cholesterol: 166, HDL: 36, LDL: 85, and triglycerides: 227. (5) Family history of ischemic heart disease: Status: Chronic Plan: On account of this, he will undergo further laboratory testing that includes lipoprotein a and hemoglobin A1c. He will also proceed with lipid and liver profile evaluation. (6) Chest pain: Status: Chronic Qualifiers: Ischemic chest pain type: stable angina pectoris Plan: He will proceed with coronary CTA to assess further. Depending on results, further recommendation will be made. 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, R07.9 - Chest pain, unspecified, Z82.49- Family history of ischemic heart disease and other diseases of the circulatorysystem Lipid Profile 01/12/25 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, R07.9 - Chest pain, unspecified, Z82.49- Family history of ischemic heart disease and other diseases of the circulatorysystem Basic Metabolic Profile (BMP) 01/12/25 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, R07.9 - Chest pain, unspecified, Z82.49 - Family history of ischemic heart disease and other diseases of the circulatory system Hemoglobin A1c 01/12/25 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 Plan was reviewed with patient/family member along with red flag symptoms. Understanding was acknowledged. Questions were answered to apparent satisfaction. This note was generated using a voice recognition system and there may be incorrect words, spelling or punctuation that were not noted when reviewing the office note prior to saving. Portions of this documentation were copied and pasted from previous office visitnotes to provide a cohesive continuity of the history. The note has been reviewed, edited, and updated, as necessary. 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 Jerrod Chase MD ~ [facility] [employer] Work Phone: History of Present illness Narrative 10-13-2023 Max [...] during Rick Mendoza's visit. I have reviewed [facility] health history and medications prior to initiating [...] Cross-fiber friction, Deep-Specific Tissue Approach, Myofascial Release, Mauritanian-Style Relaxation techniques, and Trigger Point Therapy were [...] Max Denton LMT documented in this encounter [facility] Evaluation note Note Date & Type Note Facility Evaluation note Diagnosis Onset Date Palpitations acute Atherosclerotic heart diseas e of lime coronary artery without angina pectoris chronic Bradycardia chronic Hyperlipemia [facility] Work Phone: Evaluation note Note Date & Type Note Facility Evaluation note Diagnosis Onset Date Atherosclerotic heart diseas e of lime coronary artery without angina pectoris chronic Bradycardia chronic Hyperlipemia chronic Palpitations [facility] Work Phone: Evaluation note Note Date & Type Note Facility Evaluation note No assessment information availa [facility] Work Phone: Evaluation note Note Date & Type Note Facility Evaluation note Diagnosis Musculoskeletal pain- Primary Mylagia and myositis, unspecified documented in this encounter [facility] Evaluation note Note Date & Type Note Facility Evaluation note Diagnosis Onset Date Resolution 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 January 12, 2025 2:37pm Bradycardia chronic December 2:37pm Chest pain chronic December 2:37pm Family history of ischemic heart disease chronic January 12, 2025 2:37pm Hyperlipemia chronic January 122024 2:37pm Palpitations chronic January 122024 2:37pm [facility] Work Phone: Reason for referral (narrative) Note Date & Type Note Facility Reason for referral (narrative) No reason for referral information available [facility] [employer] [facility] Work Phone: Summary Purpose Family History No Family History [...] Will No March 22 12:27pm Power of Inspector [employer] No March 22, 2021 12:27pm Advance Directive Response Recorded Date/ Time Living Will No July 10, 2022 12:33pm Power of Inspector [employer] No July 10 12:33pm Chief Complaint and Reason for Visit Chief Complaint 6 M FU E ORDERS Reason for Visit Palpitations Atherosclerotic heart disease of lime coronary artery without angina pectoris Bradycardia Hyperlipemia Chief Complaint F/U *NEEDS FRIDAY EORDER Reason for Visit Atherosclerotic hear t disease of lime coronary artery without angina pectoris Bradycardia Hyperlipemia Palpitations Chief Complaint Admit Date OVERDUE FU January 12, 2025 2:37pm INT LAB ORDERS January 12, 2025 4:13pm Reason for Visit Admit Date Atherosclerotic heart diseas e of lime coronary artery without angina pectoris January 12, 2025 2:37pm Bradycardia January 12, 2025 2:37pm Chest pain January 12, 2025 2:37pm Family history of ischemic heart disease January 12, 2025 2:37pm Hyperlipemia January 12, 2025 2:37pm Palpitations January 12, 2025 2:37pm Additional Source Comments (unrecognized sect ion and content) No Status Records FoundNo Status Records FoundNo Status Records Found INFORMATION SOURCE (unrecogn ized section and content) DATE CREATED AUTHOR 07/20/2019 [facility] DATE CREATED AUTHOR AUTHOR'S ORGANIZ ATION 10/18/2023 [facility] DATE CREATED AUTHOR AUTHOR'S ORGANIZ ATION 02/13/2025 [facility] Goals (unrecognized section and content) Goals may [...] Provider, Refer ring Provider Active Vel Joseph WAREHOUSE HAND, WAREHOUSE HAND-C Attending Provider Active Team Status: Inactive Member Role Status Dates Dr. Jerrod Chase MD Primary Care Provider Active Vel Joseph WAREHOUSE HAND, WAREHOUSE HAND-C Attending Provider, Referring Pro vider Active Team Status: Active Member Role/Relationship Status Dates Dr. Jerrod Chase MD Primary care physician Activ e Team Status: Inactive Member Role/Relationship Status Dates Dr. Jerrod Chase MD Primary care physician Activ e Start: January 12, 2025 End: January 12, 2025 Dr. Jerrod Chase MD Referring Provider Active Start: January 12, 2025 End: January 12, 2025 Vel Joseph WAREHOUSE HAND, WAREHOUSE HAND-C Attending physician Active Start: January 12, 2025 End: January 12, 2025 Team Status: Active Member Role/Relationship Status Dates Dr. Jerrod Chase MD Primary care physician Activ e Start: January 12, 2025 Vel Joseph WAREHOUSE HAND, WAREHOUSE HAND-C Attending physician Active Start: January 12, 2025 Vel Joseph WAREHOUSE HAND, WAREHOUSE HAND-C Referring Provider Active S tart: January 12, 2025 Team Status: Inactive Member Role/Relationship Status Dates Dr. Jerrod Chase MD Primary care physician Activ e Start: January 12, 2025 End: January 12, 2025 Vel Joseph WAREHOUSE HAND, WAREHOUSE HAND-C Attending physician Active Start: January 12, 2025 End: January 12, 2025 Vel Joseph WAREHOUSE HAND, WAREHOUSE HAND-C Referring Provider Active S tart: January 12, 2025 End: January 12, 2025 Reason for Visit (unrecogniz ed section and [...] BE BASED ON THE PRIMARY CLINICAL RECORDS. [employer] provides no warranty or guarantee of the accuracy or completeness of information in this document.
[2025-02-18 12:58] VITALS: BP 109/76; PULSE 72; RESP 18; O2SAT 100; BMI 28.5
[2025-02-18 13:08] VITALS: PULSE 57
[2025-02-18] MEDS: Nitroglycerin SL (ED/IMG/CATH) 0.4 MG TABLET SL (13:08)
[2025-02-18 13:15] VITALS: BP 107/70; PULSE 67; RESP 16; O2SAT 99
[2025-02-18 13:25] VITALS: BP 110/70; PULSE 67; RESP 16; O2SAT 99
--- NOTE | 2025-02-19 10:47 | CCTA.WCONT ---
CCTA w/Cont Coronary Arteries Date of Study:: 02/18/25 CP Coronary Calcium Scoring: High-resolution Computed Tomographic imaging of the chest was performed on [02/18/25 ], with particular attention paid to the coronary arteries. Intravenous contrast agent was administered per protocol and images reconstructed and displayed. LEFT MAIN CORONARY ARTERY: Arises from the left coronary cusp with no significant stenosis present bifurcates the left anterior descending artery and left circumflex artery [] LEFT ANTERIOR DESCENDING CORONARY ARTERY: Left anterior descending artery has a focal eccentric calcification with mild to moderate stenosis in the rest of the vessel with mild disease only [] LEFT CIRCUMFLEX CORONARY ARTERY: Nondominant circumflex artery with no evidence of high-grade stenosis [] RIGHT CORONARY ARTERY: Dominant right coronary artery with no angiographically significant stenosis present. [] THORACIC AORTA: [] PULMONARY ARTERY: [] LEFT ATRIUM/APPENDAGE: [] MITRAL VALVE: [] AORTIC VALVE: [] LEFT VENTRICLE: [] CORONARY CALCIUM SCORE: 75.6 [] Findings Coronary Artery Left Main (LM): 0 Left Anterior Descending (LAD): 75.6 Left Circumflex (LCX): 0 Right Coronary Artery (RCA): 0 Total Agatston Score: 75.6 Percentile Rankin Calcium Scoring Interpretation: Different methods to categorize the overall amount of coronary plaque. Overall amount CAC SIS Visual of coronary plaque P1 Mild -100 <2 1-2 vessels with mild amount of plaque P2 Moderate 101-300 3-4 1-2 vessels with moderate amount, 3 vessels with mild amount of plaque P3 Severe 301-999 5-7 3 vessels with moderate amount, 1 vessel with severe amount of plaque P4 Extensive >1000 >8 2-3 vessels with severe amount of plaque Calcium Score: Mild: 1-2 vessels w/mild amount of plaque Conclusion: Mild single-vessel plaque disease noted in the left anterior descending artery with no evidence of high-grade stenosis present.
== END | disposition home or self-care (01) ==
LOC: CT 12:31
PROVIDERS: PCP Internal Medicine; Referring Provider Nurse Practitioner Family; Visit Provider Nurse Practitioner Family
DX: I25.10 Atherosclerotic heart disease of native coronary artery without angina pectoris (principal); Z82.49 Family history of ischemic heart disease and other diseases of the circulatory system; R07.9 Chest pain, unspecified
CPT/HCPCS: 75571; 75574; 76380; Q9967